=== PATIENT | male | born 1945 | race Caucasian/White ===

== ENCOUNTER 2018-06-11 07:09 | Emergency (ER) | payer OTHER ==
--- OUTSIDE RECORDS SUMMARY | 2018-06-11 07:14 | XMS REPORT | Clinical Summary ---
:1945 Author Organization [facility] Address [address] [place] [address] Care Team Providers Name Role Phone Dayna Mcneal MD Primary Care Provider Allergies Active Allergy Reactions Severity Noted Date Comments No Known Drug Allergies 04/29/2016 Medications Medication Sig Dispensed Refills Start Date End Date Status calcitriol Take 0.25 mcg 0 Active (ROCALTROL) 0.25 by mouth MCG capsule daily. pantoprazole Take 40 mg by 0 Active (PROTONIX) 40 MG EC mouth daily. tablet States not taking anymore nitroglycerin Place 0.4 mg 0 Active (NITROSTAT) 0.4 MG under the SL tablet tongue every 5 (five) minutes as needed for chest pain. cholecalciferol, Take 1,000 0 Active vitamin D3, Units by mouth (VITAMIN D3) 1,000 daily. unit tablet carvedilol (COREG) Take 1 tablet 180 tablet 3 05/04/2017 Active 6.25 MG tablet (6.25 mg total) by mouth 2 (two) times a day with meals. atorvastatin Take 1 tablet 90 tablet 3 12/22/2017 Active (LIPITOR) 80 MG (80 mg total) tablet by mouth nightly. isosorbide Take 1 tablet 90 tablet 3 01/18/2018 Active mononitrate (IMDUR) (30 mg total) 30 MG 24 hr tablet by mouth daily. furosemide (LASIX) TAKE 1 180 tablet 0 03/12/2018 Active 40 mg TABLET(40 MG) tabletIndications: BY MOUTH TWICE Edema, unspecified DAILY type ELIQUIS 5 mg (74 0 01/31/2018 Active tabs) tablets,dose pack HYDRALAZINE HCL, Take 100 mg by 0 01/31/2018 Active BULK, MISC mouth daily. amLODIPine TAKE 1 90 tablet 0 04/12/2018 Active (NORVASC) 10 mg TABLET(10 MG) tablet BY MOUTH DAILY traMADol (ULTRAM) Take 1 tablet 10 tablet 0 06/07/2018 Active 50 mg tablet (50 mg total) 8 by mouth every 8 (eight) hours as needed for moderate pain for up to 5 days. atorvastatin Take 80 mg by 0 Discontinued (LIPITOR) 80 MG mouth nightly. 8 tablet aspirin (ECOTRIN) Take 81 mg by 0 Discontinued 81 MG enteric mouth daily. 8 coated tablet amLODIPine Take 1 tablet 90 tablet 3 11/16/2016 Discontinued (NORVASC) 10 mg (10 mg total) 8 tablet by mouth daily. furosemide (LASIX) Take 1 tablet 180 tablet 3 01/03/2017 Discontinued 40 mg (40 mg total) 8 tabletIndications: by mouth 2 Edema, unspecified (two) times a type day. FLUZONE HIGH-DOSE ADM 0.5ML IM 0 03/23/2017 Discontinued 2016-18, PF, 180 UTD 8 mcg/0.5 mL syringe vaccine PREVNAR 13, PF, 0.5 ADM 0.5ML IM 0 03/23/2017 Discontinued mL vaccine UTD 8 amLODIPine TAKE 1 90 tablet 0 11/22/2017 Discontinued (NORVASC) 10 mg TABLET(10 MG) 8 tablet BY MOUTH DAILY clopidogrel Take 1 tablet 30 tablet 0 12/20/2017 Discontinued (PLAVIX) 75 mg (75 mg total) 8 tablet by mouth daily for 30 days. hydrALAZINE Take 1 tablet 90 tablet 0 12/19/2017 Discontinued (APRESOLINE) 100 MG (100 mg total) 8 tablet by mouth 3 (three) times a day for 30 days. isosorbide Take 1 tablet 90 tablet 0 12/19/2017 Discontinued dinitrate (ISORDIL) (40 mg total) 8 40 MG tablet by mouth 3 (three) times a day for 30 days. apixaban (ELIQUIS) Take 1 tablet 60 tablet 0 12/19/2017 Discontinued 5 mg tablet (5 mg total) 8 by mouth 2 (two) times a day for 30 days. nicotine (NICODERM Place 1 patch 30 patch 0 12/20/2017 Discontinued CQ) 14 mg/24 hr on the skin 8 daily for 30 days. clopidogrel Take 1 tablet 30 tablet 0 12/20/2017 Discontinued (PLAVIX) 75 mg (75 mg total) 8 tablet by mouth daily for 30 days. isosorbide Take 1 tablet 90 tablet 3 12/22/2017 Discontinued mononitrate (IMDUR) (30 mg total) 8 30 MG 24 hr tablet by mouth every morning. isosorbide Take 30 mg by 0 Discontinued mononitrate (IMDUR) mouth daily. 8 30 MG 24 hr tablet apixaban (ELIQUIS) Take 1 tablet 180 tablet 0 01/18/2018 Discontinued 5 mg tablet (5 mg total) 8 by mouth 2 (two) times a day for 30 days. clopidogrel Take 1 tablet 90 tablet 3 01/18/2018 Discontinued (PLAVIX) 75 mg (75 mg total) 8 tablet by mouth daily for 30 days. hydrALAZINE Take 1 tablet 90 tablet 0 01/18/2018 Discontinued (APRESOLINE) 100 MG (100 mg total) 8 tablet by mouth 3 (three) times a day for 30 days. clopidogrel TAKE 1 TABLET 30 tablet 0 01/23/2018 Discontinued (PLAVIX) 75 mg BY MOUTH EVERY 8 tablet DAY hydrALAZINE Take 1 tablet 270 tablet 3 01/31/2018 (APRESOLINE) 100 MG (100 mg total) 8 tablet by mouth 3 (three) times a day for 30 days. apixaban (ELIQUIS) Take 1 tablet 180 tablet 3 01/31/2018 5 mg tablet (5 mg total) 8 by mouth 2 (two) times a day for 30 days. clopidogrel TAKE 1 TABLET 30 tablet 0 03/12/2018 Discontinued (PLAVIX) 75 mg BY MOUTH EVERY 8 tablet DAY Active Problems Problem Noted Date H/O cardiac arrest 12/05/2017 Stented coronary artery 05/02/2017 Chronic obstructive pulmonary disease 04/29/2016 Pure hypercholesterolemia 04/29/2016 Overview: On statin and tolerating it; no muscle aches. Peripheral blood vessel disorder 04/29/2016 Ischemic cardiomyopathy 01/23/2016 Overview: S/p PCI - Dr. Avina Acute on chronic systolic CHF (congestive heart failure) 01/23/2016 Overview: LV size is upper limits of normal. EF=31%. Wall motion abnormalities present. LA volume is moderately enlarged. LV filling pressure is elevated, mean PCWP is 15-20mmHg. 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; hoping that kidney can recover to come off Essential hypertension 01/23/2016 Overview: Hydralazine 100 mg TID; isosorbide 40 mg Daily; amlodipine 10 mg; coreg 6.25 mg BID; Male erectile disorder 09/25/2014 Encounters Date Type Specialty Care Team Description 06/07/2018 Anesthesia Event General Surgery [facility], Millie, [employer] 06/07/2018 Surgery General Surgery Kaye, LEFT BRACHIOCEPHALIC Nithin Salazar MD AV GRAFT INSERTION 06/07/2018 Hospital Encounter General Surgery Nithin Restrepo MD 05/31/2018 Pre-Admit Testing Pre-Admission Kaye Preop testing ( Primary Appointment Testing Nithin Salazar MD Dx) 05/31/2018 Office Visit General Surgery Kaye, ESRD on hemodialysis Nithin Salazar MD ([facility]) (Primary Dx) 05/15/2018 Refill Cardiology Lourdes Avina Refill MD Marie 04/12/2018 Refill Cardiology Lourdes Avina MD 04/03/2018 Office Visit Cardiology Lourdes Avina Ischemic cardiomyopathy ( Primary Dx); MD Marie Stented coronary artery 03/06/2018 Refill Cardiology Lourdes Avina MD 01/31/2018 Orders Only Cardiology Marco Antonio Lozoya MA 01/23/2018 Refill Cardiology Lourdes Avina MD 01/18/2018 Refill Cardiology Richard Swartz MA 01/02/2018 Office Visit Cardiology Lourdes Avina Ischemic cardiomyopathy ( Primary Dx); MD Marie Stented coronary artery 12/29/2017 Office Visit Internal Medicine Dayna Mcneal Chronic bronchitis , unspecified chronic bronchitis type (Primary Dx); MD Evelio Acute on chronic systolic CHF (congestive heart failure); ESRD (end stage renal disease) on dialysis; Essential hypertension; Hematuria, unspecified type; H/O cardiac arrest; Pure hypercholesterolemia; Ischemic cardiomyopathy; CAD in [place] artery 12/22/2017 Refill Cardiology Maxime, Med Refill Laura, MA 12/22/2017 Refill Cardiology Maxime, Med Refill Laura, MA 12/22/2017 Orders Only Cardiology Laura Swartz MA 12/15/2017 Surgery Procedural Lourdes Avina Cv pci [10265 (CPT)] Cardiology MD Marie 12/07/2017 Surgery Procedural Lourdes Avina Cv selective coronary Cardiology MD Marie angiography [42159 (CPT)] 12/05/2017 - Hospital Encounter Lourdes Hardy Cardiac arrest ( Primary Dx); 12/19/2017 MD Marie Acute on chronic respiratory failure with hypoxia and hypercapnia; Pleural effusion, bilateral; Ischemic cardiomyopathy; Acute on chronic systolic CHF (congestive heart failure) 11/22/2017 Refill Cardiology Lourdes Avina Med Refcecil Salazar MD 10/31/2017 Office Visit Cardiology Lourdes Avina SOB (shortness of breath) ( Primary Dx); MD Marie CAD in [place] artery; Systolic congestive heart failure, unspecified congestive heart failure chronicity after 06/10/2017 Family History Medical History Relation Name Comments Heart disease Mother Relation Name Status Comments Father Mother Social History Tobacco Use Types Packs/Day Years Used Date Former Smoker Cigarettes 2 50 Quit: 2017 Smokeless Tobacco: Never Used Comments: patient smoked for 50 years Alcohol Use Drinks/Week oz/Week Comments No Sex Assigned at Date Recorded Not on file Job Start Date Occupation Industry Not on file Not on file Not on file Travel History Travel Start Travel End No recent travel history available. Last Filed Vital Signs Vital Sign Reading Time Taken Blood Pressure 165/73 06/07/2018 3:45 PM MEDICAL RESEARCHER Pulse 63 06/07/2018 3:45 PM MEDICAL RESEARCHER Temperature 36.4 C (97.5 F) 06/07/2018 2:45 PM MEDICAL RESEARCHER Respiratory Rate 18 06/07/2018 3:45 PM MEDICAL RESEARCHER Oxygen Saturation 93% 06/07/2018 3:45 PM MEDICAL RESEARCHER Inhaled Oxygen Concentration - - Weight 99.8 kg (220 lb) 06/07/2018 9:00 AM MEDICAL RESEARCHER Height 180.3 cm (5' 11") 06/07/2018 9:00 AM MEDICAL RESEARCHER Body Mass Index 30.68 06/07/2018 9:00 AM MEDICAL RESEARCHER Plan of Treatment Date Type Specialty Care Team Description 06/21/2018 Office Visit General Surgery Nithin Restrepo MD [address] [facility] [address] [place], [place] [id number] 10/02/2018 Office Visit Cardiology Lourdes Avina MD [address] [facility] [address] [place], [place] [phone] Health Maintenance Due Date Last Done Comments COLON CANCER SCREENING 1996 SHINGLES VACCINES (1 of 2) 1996 PNEUMOCOCCAL POLYSACCHARIDE VACCINE AGE 65 AND OVER 2011 PNEUMOCOCCAL-13 2011 INFLUENZA VACCINE 01/17/2018 Implants Implanted Type Area Monotype Operator Device Shelf Model / Identifier Expiration Serial / Date Lot Stent Coronary Syst Synergy (Mr) 3.00mm X 28mm - [id number] Coronary N/A: BSC 07/25/2018 [id number] / Implanted: 12/15/2017 (Quantity not on file) Stents N/A INTERVENTIONAL / CARDIOLOGY [id number] Set Cathztn Hmodial Lngtrm Accs 15fr 28cm Edge Simplicity - [id number] Surgical N/A: ARROW 08/16/2020 [id number] / Implanted: 12/12/2017 (Quantity not on file) Implants; N/A [employer] / Expanders; [id number] Extenders; Surgical Wires Graft Vasclr Pandora-Yeison Stdwl 40cm 6mm - [id number] Vascular N/A: W L GORE 08/24/2022 [id number] / Implanted: 06/07/2018 (Quantity not on file) Graft N/A [id number] / [id number] Penile Procedures Procedure Name Priority Date/Time Associated Diagnosis Comments NV AN ELECTIVE Routine 06/07/2018 11:16 AM ENDOTRACHEAL AIRWAY MEDICAL RESEARCHER Procedure Note - Torey Bell MD - 06/07/2018 11:16 AM MEDICAL RESEARCHER ANESTHESIA INTUBATION Performed by: Torey Bell MD Authorized by: Torey Bell MD Location: OR Urgency: Elective Preoxygenated with 100% O2: Yes C-spine Precautions Maintained Throughout: Yes Mask Ventilation: Easy mask Final Airway Type: Endotracheal airway Final Endotracheal Airway: ETT Technique Used: Direct laryngoscopy Blade Type: Aggarwal Laryngoscope Blade/Videolaryngoscope Blade Size: 2 ETT Size (mm): 8.0 Measured from: Lips ETT to Lips (cm): 24 Placement Verified by: CO2 detection, direct visualization and equal breath sounds Laryngoscopic view: Grade I - full view of glottis Rapid Sequence Induction (RSI): No Modified RSI: No Number of Attempts at Approach: 1 GLUCOSE LEVEL, SYRINGE STAT 06/07/2018 9:42 Results for this AM MEDICAL RESEARCHER procedure are in the results section. POTASSIUM, SYRINGE STAT 06/07/2018 9:42 Results for this AM MEDICAL RESEARCHER procedure are in the results section. HEMOGLOBIN, SYRINGE STAT 06/07/2018 9:42 Results for this AM MEDICAL RESEARCHER procedure are in the results section. ECG PRE/POST OP Routine 05/31/2018 5:43 Preop testing Results for this PM MEDICAL RESEARCHER procedure are in the results section. ESTIMATED GFR Routine 05/31/2018 5:30 Results for this PM MEDICAL RESEARCHER procedure are in the results section. COMPREHENSIVE METABOLIC Routine 05/31/2018 5:30 Preop testing Results for this PANEL PM MEDICAL RESEARCHER procedure are in the results section. HC COMPLETE BLD COUNT Routine 05/31/2018 5:30 Preop testing Results for this W/AUTO DIFF PM MEDICAL RESEARCHER procedure are in the results section. ECG 12-LEAD STAT 12/19/2017 12:13 Results for this PM CDT procedure are in the results section. ZZESTIMATED GFR Routine 12/19/2017 4:00 Results for this AM CDT procedure are in the results section. BASIC METABOLIC PANEL Routine 12/19/2017 4:00 Results for this AM CDT procedure are in the results section. ECG 12-LEAD STAT 12/18/2017 5:14 Results for this PM CDT procedure are in the results section. ZZESTIMATED GFR Routine 12/18/2017 4:00 Results for this AM CDT procedure are in the results section. BASIC METABOLIC PANEL Routine 12/18/2017 4:00 Results for this AM CDT procedure are in the results section. HEMODIALYSIS Routine 12/17/2017 1:43 PM CDT PROTHROMBIN TIME WITH Routine 12/16/2017 7:38 Results for this INR AM CDT procedure are in the results section. HC COMPLETE BLD COUNT Routine 12/16/2017 7:38 Results for this W/AUTO DIFF AM CDT procedure are in the results section. ZZESTIMATED GFR Routine 12/16/2017 4:00 Results for this AM CDT procedure are in the results section. MAGNESIUM LEVEL Routine 12/16/2017 4:00 Results for this AM CDT procedure are in the results section. IONIZED CALCIUM Routine 12/16/2017 4:00 Results for this AM CDT procedure are in the results section. BASIC METABOLIC PANEL Routine 12/16/2017 4:00 Results for this AM CDT procedure are in the results section. XR CHEST 1 VW PORTABLE Routine 12/15/2017 7:57 Results for this PM CDT procedure are in the results section. ECG PRE/POST OP Routine 12/15/2017 3:05 Results for this PM CDT procedure are in the results section. CONSULT CARDIAC REHAB Routine 12/15/2017 2:30 PHASE 1 PM CDT CV PCI PERCUTANEOUS Routine 12/15/2017 2:05 Results for this CARDIAC ANGIOPLASTY PM CDT procedure are in the results section. POC ACT Routine 12/15/2017 1:31 Results for this PM CDT procedure are in the results section. ACTIVATED CLOTTING TIME Routine 12/15/2017 12:38 Results for this PM CDT procedure are in the results section. ANTI XA, UNFRACTIONATED Routine 12/15/2017 5:30 Results for this AM CDT procedure are in the results section. PROTHROMBIN TIME WITH Routine 12/15/2017 5:30 Results for this INR AM CDT procedure are in the results section. MANUAL DIFFERENTIAL Routine 12/15/2017 4:00 Results for this AM CDT procedure are in the results section. ZZESTIMATED GFR Routine 12/15/2017 4:00 Results for this AM CDT procedure are in the results section. MAGNESIUM LEVEL Routine 12/15/2017 4:00 Results for this AM CDT procedure are in the results section. IONIZED CALCIUM Routine 12/15/2017 4:00 Results for this AM CDT procedure are in the results section. CBC WITH PLATELET AND Routine 12/15/2017 4:00 Results for this DIFFERENTIAL AM CDT procedure are in the results section. BASIC METABOLIC PANEL Routine 12/15/2017 4:00 Results for this AM CDT procedure are in the results section. HEPATITIS B CORE Routine 12/14/2017 3:09 Results for this ANTIBODY TOTAL PM CDT procedure are in the results section. HEPATITIS B SURFACE Routine 12/14/2017 3:09 Results for this ANTIBODY PM CDT procedure are in the results section. HEMODIALYSIS Routine 12/14/2017 2:32 PM CDT ANTI XA, UNFRACTIONATED STAT 12/14/2017 8:40 Results for this AM CDT procedure are in the results section. ECG 12-LEAD Routine 12/14/2017 8:15 Results for this AM CDT procedure are in the results section. MANUAL DIFFERENTIAL Routine 12/14/2017 5:00 Results for this AM CDT procedure are in the results section. ZZESTIMATED GFR Routine 12/14/2017 5:00 Results for this AM CDT procedure are in the results section. ANTI XA, UNFRACTIONATED Routine 12/14/2017 5:00 Results for this AM CDT procedure are in the results section. TYPE AND SCREEN Routine 12/14/2017 5:00 Results for this AM CDT procedure are in the results section. PROTHROMBIN TIME WITH Routine 12/14/2017 5:00 Results for this INR AM CDT procedure are in the results section. MAGNESIUM LEVEL Routine 12/14/2017 5:00 Results for this AM CDT procedure are in the results section. IONIZED CALCIUM Routine 12/14/2017 5:00 Results for this AM CDT procedure are in the results section. CBC WITH PLATELET AND Routine 12/14/2017 5:00 Results for this DIFFERENTIAL AM CDT procedure are in the results section. BASIC METABOLIC PANEL Routine 12/14/2017 5:00 Results for this AM CDT procedure are in the results section. PROTHROMBIN TIME WITH Timed 12/13/2017 1:50 Results for this INR PM CDT procedure are in the results section. ANTI XA, UNFRACTIONATED Timed 12/13/2017 1:50 Results for this PM CDT procedure are in the results section. ZZESTIMATED GFR Routine 12/13/2017 7:30 Results for this AM CDT procedure are in the results section. BASIC METABOLIC PANEL Routine 12/13/2017 7:30 Results for this AM CDT procedure are in the results section. HC COMPLETE BLD COUNT Routine 12/13/2017 7:30 Results for this W/AUTO DIFF AM CDT procedure are in the results section. PROTHROMBIN TIME WITH Routine 12/13/2017 7:30 Results for this INR AM CDT procedure are in the results section. PARTIAL THROMBOPLASTIN Routine 12/13/2017 7:30 Results for this TIME (PTT) AM CDT procedure are in the results section. HEMODIALYSIS Routine 12/13/2017 7:00 AM CDT ANTI XA, UNFRACTIONATED Routine 12/13/2017 4:40 Results for this AM CDT procedure are in the results section. POC GLUCOSE Routine 12/12/2017 9:40 Results for this PM CDT procedure are in the results section. XR CHEST 1 VW PORTABLE Routine 12/12/2017 8:19 Results for this PM CDT procedure are in the results section. HEPATITIS B SURFACE Routine 12/12/2017 8:07 Results for this ANTIGEN PM CDT procedure are in the results section. HEPATITIS B SURFACE AG Routine 12/12/2017 3:36 Results for this CONFIRMATION PM CDT procedure are in the results section. HEPATITIS B SURFACE Routine 12/12/2017 3:36 Results for this ANTIGEN PM CDT procedure are in the results section. HEMODIALYSIS Routine 12/12/2017 12:05 PM CDT IR TUNNELED DIALYSIS Routine 12/12/2017 8:27 Results for this CATHETER PLACEMENT AM CDT procedure are in the results section. ANTI XA, UNFRACTIONATED Timed 12/12/2017 7:03 Results for this AM CDT procedure are in the results section. ZZESTIMATED GFR Routine 12/12/2017 12:36 Results for this AM CDT procedure are in the results section. BASIC METABOLIC PANEL Routine 12/12/2017 12:36 Results for this AM CDT procedure are in the results section. ANTI XA, UNFRACTIONATED Timed 12/12/2017 12:30 Results for this AM CDT procedure are in the results section. CBC HEMOGRAM Routine 12/12/2017 12:30 Results for this AM CDT procedure are in the results section. ANTI XA, UNFRACTIONATED Routine 12/11/2017 4:30 Results for this PM CDT procedure are in the results section. ECG 12-LEAD Routine 12/11/2017 10:47 Results for this AM CDT procedure are in the results section. ZZESTIMATED GFR Routine 12/11/2017 5:19 Results for this AM CDT procedure are in the results section. CBC HEMOGRAM Routine 12/11/2017 5:19 Results for this AM CDT procedure are in the results section. BASIC METABOLIC PANEL Routine 12/11/2017 5:19 Results for this AM CDT procedure are in the results section. URINALYSIS, AUTOMATED STAT 12/10/2017 5:51 Results for this WITH MICROSCOPY PM CDT procedure are in the results section. MANUAL DIFFERENTIAL Routine 12/10/2017 3:00 Results for this PM CDT procedure are in the results section. CBC WITH PLATELET AND Routine 12/10/2017 3:00 Results for this DIFFERENTIAL PM CDT procedure are in the results section. ANTI XA, UNFRACTIONATED Routine 12/10/2017 12:20 Results for this PM CDT procedure are in the results section. ANTI XA, UNFRACTIONATED Routine 12/10/2017 8:30 Results for this AM CDT procedure are in the results section. ZZESTIMATED GFR Routine 12/10/2017 12:01 Results for this AM CDT procedure are in the results section. CBC HEMOGRAM Routine 12/10/2017 12:01 Results for this AM CDT procedure are in the results section. BASIC METABOLIC PANEL Routine 12/10/2017 12:01 Results for this AM CDT procedure are in the results section. ANTI XA, UNFRACTIONATED Routine 12/10/2017 12:01 Results for this AM CDT procedure are in the results section. ANTI XA, UNFRACTIONATED Routine 12/09/2017 5:24 Results for this PM CDT procedure are in the results section. HC COMPLETE BLD COUNT Routine 12/09/2017 11:47 Results for this W/AUTO DIFF AM CDT procedure are in the results section. ZZESTIMATED GFR STAT 12/09/2017 11:42 Results for this AM CDT procedure are in the results section. BASIC METABOLIC PANEL STAT 12/09/2017 11:42 Results for this AM CDT procedure are in the results section. ANTI XA, UNFRACTIONATED Timed 12/09/2017 6:33 Results for this AM CDT procedure are in the results section. ANTI XA, UNFRACTIONATED Routine 12/08/2017 9:19 Results for this PM CDT procedure are in the results section. ANTI XA, UNFRACTIONATED Timed 12/08/2017 1:49 Results for this PM CDT procedure are in the results section. ECG 12-LEAD Routine 12/08/2017 10:26 Results for this AM CDT procedure are in the results section. PROTHROMBIN TIME WITH STAT 12/08/2017 4:30 Results for this INR AM CDT procedure are in the results section. PARTIAL THROMBOPLASTIN STAT 12/08/2017 4:30 Results for this TIME (PTT) AM CDT procedure are in the results section. ANTI XA, UNFRACTIONATED STAT 12/08/2017 4:30 Results for this AM CDT procedure are in the results section. HC COMPLETE BLD COUNT Routine 12/08/2017 4:30 Results for this W/AUTO DIFF AM CDT procedure are in the results section. ZZESTIMATED GFR Routine 12/08/2017 4:00 Results for this AM CDT procedure are in the results section. MAGNESIUM LEVEL Routine 12/08/2017 4:00 Results for this AM CDT procedure are in the results section. PHOSPHORUS LEVEL Routine 12/08/2017 4:00 Results for this AM CDT procedure are in the results section. IONIZED CALCIUM Routine 12/08/2017 4:00 Results for this AM CDT procedure are in the results section. BASIC METABOLIC PANEL Routine 12/08/2017 4:00 Results for this AM CDT procedure are in the results section. ECG 12-LEAD Routine 12/08/2017 12:07 SOB (shortness of Results for this AM CDT breath) procedure are in the results section. CV SELECTIVE CORONARY Routine 12/07/2017 5:56 Results for this ANGIOGRAPHY PM CDT procedure are in the results section. POC GLUCOSE Routine 12/07/2017 11:07 Results for this AM CDT procedure are in the results section. XR CHEST 1 VW PORTABLE STAT 12/07/2017 6:51 Results for this AM CDT procedure are in the results section. POC GLUCOSE Routine 12/07/2017 6:23 Results for this AM CDT procedure are in the results section. HC COMPLETE BLD COUNT Routine 12/07/2017 5:15 Results for this W/AUTO DIFF AM CDT procedure are in the results section. ZZESTIMATED GFR Routine 12/07/2017 4:00 Results for this AM CDT procedure are in the results section. IONIZED CALCIUM Routine 12/07/2017 4:00 Results for this AM CDT procedure are in the results section. PHOSPHORUS LEVEL Routine 12/07/2017 4:00 Results for this AM CDT procedure are in the results section. MAGNESIUM LEVEL Routine 12/07/2017 4:00 Results for this AM CDT procedure are in the results section. COMPREHENSIVE METABOLIC Routine 12/07/2017 4:00 Results for this PANEL AM CDT procedure are in the results section. CT ABDOMEN PELVIS WO Routine 12/06/2017 10:00 Results for this CONTRAST PM CDT procedure are in the results section. POC GLUCOSE Routine 12/06/2017 9:10 Results for this PM CDT procedure are in the results section. POC GLUCOSE Routine 12/06/2017 5:22 Results for this PM CDT procedure are in the results section. ZZESTIMATED GFR Routine 12/06/2017 3:02 Results for this PM CDT procedure are in the results section. PHOSPHORUS LEVEL Routine 12/06/2017 3:02 Results for this PM CDT procedure are in the results section. MAGNESIUM LEVEL Routine 12/06/2017 3:02 Results for this PM CDT procedure are in the results section. IONIZED CALCIUM Routine 12/06/2017 3:02 Results for this PM CDT procedure are in the results section. BASIC METABOLIC PANEL Routine 12/06/2017 3:02 Results for this PM CDT procedure are in the results section. AMYLASE LEVEL Routine 12/06/2017 3:02 Results for this PM CDT procedure are in the results section. LIPASE LEVEL Routine 12/06/2017 3:02 Results for this PM CDT procedure are in the results section. POC GLUCOSE Routine 12/06/2017 1:29 Results for this PM CDT procedure are in the results section. TROPONIN Timed 12/06/2017 10:28 Results for this AM CDT procedure are in the results section. ECG 12-LEAD Routine 12/06/2017 10:16 Results for this AM CDT procedure are in the results section. XR CHEST 1 VW PORTABLE Routine 12/06/2017 10:07 Results for this AM CDT procedure are in the results section. POC GLUCOSE Routine 12/06/2017 8:55 Results for this AM CDT procedure are in the results section. BLOOD CULTURE, AEROBIC Routine 12/06/2017 7:56 Results for this & ANAEROBIC AM CDT procedure are in the results section. ARTERIAL BLOOD GAS STAT 12/06/2017 7:52 Results for this AM CDT procedure are in the results section. XR ABDOMEN 1 VW STAT 12/06/2017 7:20 Results for this PORTABLE AM CDT procedure are in the results section. XR CHEST 1 VW PORTABLE STAT 12/06/2017 7:08 Results for this AM CDT procedure are in the results section. XR ABDOMEN 1 VW STAT 12/06/2017 7:08 Results for this PORTABLE AM CDT procedure are in the results section. MYCOPLASMA PNEUMONIAE Routine 12/06/2017 6:00 Results for this BY PCR AM CDT procedure are in the results section. MISCELLANEOUS REFERRAL Routine 12/06/2017 5:50 Results for this TEST AM CDT procedure are in the results section. POC GLUCOSE Routine 12/06/2017 5:43 Results for this AM CDT procedure are in the results section. NV THORACENTESIS Routine 12/06/2017 5:39 Acute on chronic Results for this NEEDLE/CATH PLEURA AM CDT respiratory failure procedure are in W/IMAGING with hypoxia and the results hypercapnia section. Pleural effusion, bilateral Cardiac arrest BODY FLUID CONSULT Routine 12/06/2017 5:25 Results for this AM CDT procedure are in the results section. PH, MISC FLUID Routine 12/06/2017 5:25 Results for this AM CDT procedure are in the results section. RHEUMATOID FACTOR, STAT 12/06/2017 5:25 Results for this FLUID AM CDT procedure are in the results section. TRIGLYCERIDES, MISC Routine 12/06/2017 5:25 Results for this FLUID AM CDT procedure are in the results section. CREATININE LEVEL, MISC Routine 12/06/2017 5:25 Results for this FLUID AM CDT procedure are in the results section. ALBUMIN, MISC FLUID Routine 12/06/2017 5:25 Results for this AM CDT procedure are in the results section. AMYLASE LEVEL, MISC Routine 12/06/2017 5:25 Results for this FLUID AM CDT procedure are in the results section. CELL COUNT AND Routine 12/06/2017 5:25 Results for this DIFFERENTIAL, BODY AM CDT procedure are in FLUID the results section. LDH, MISC FLUID Routine 12/06/2017 5:25 Results for this AM CDT procedure are in the results section. GLUCOSE LEVEL, MISC Routine 12/06/2017 5:25 Results for this FLUID AM CDT procedure are in the results section. PROTEIN, MISC FLUID Routine 12/06/2017 5:25 Results for this AM CDT procedure are in the results section. HEMATOCRIT, MISC FLUID STAT 12/06/2017 5:25 Results for this AM CDT procedure are in the results section. GRAM STAIN Routine 12/06/2017 5:25 Results for this AM CDT procedure are in the results section. FUNGUS SMEAR Routine 12/06/2017 5:25 Results for this AM CDT procedure are in the results section. FUNGUS CULTURE Routine 12/06/2017 5:25 Results for this AM CDT procedure are in the results section. ANAEROBIC CULTURE Routine 12/06/2017 5:25 Results for this AM CDT procedure are in the results section. AEROBIC CULTURE Routine 12/06/2017 5:25 Results for this AM CDT procedure are in the results section. AFB CULTURE Routine 12/06/2017 5:25 Results for this AM CDT procedure are in the results section. AFB STAIN Routine 12/06/2017 5:25 Results for this AM CDT procedure are in the results section. ZZESTIMATED GFR Routine 12/06/2017 2:27 Results for this AM CDT procedure are in the results section. IONIZED CALCIUM Routine 12/06/2017 2:27 Results for this AM CDT procedure are in the results section. MAGNESIUM LEVEL Routine 12/06/2017 2:27 Results for this AM CDT procedure are in the results section. PHOSPHORUS LEVEL Routine 12/06/2017 2:27 Results for this AM CDT procedure are in the results section. FERRITIN LEVEL Routine 12/06/2017 2:27 Results for this AM CDT procedure are in the results section. TOTAL IRON BINDING Routine 12/06/2017 2:27 Results for this CAPACITY AM CDT procedure are in the results section. THYROID STIMULATING Routine 12/06/2017 2:27 Results for this HORMONE AM CDT procedure are in the results section. COMPREHENSIVE METABOLIC Routine 12/06/2017 2:27 Results for this PANEL AM CDT procedure are in the results section. HEPARIN PF4 ANTIBODY Routine 12/06/2017 2:00 Results for this (IGG) AM CDT procedure are in the results section. D-DIMER Routine 12/06/2017 2:00 Results for this AM CDT procedure are in the results section. FIBRINOGEN Routine 12/06/2017 2:00 Results for this AM CDT procedure are in the results section. PARTIAL THROMBOPLASTIN Routine 12/06/2017 2:00 Results for this TIME (PTT) AM CDT procedure are in the results section. TRIGLYCERIDES Routine 12/06/2017 2:00 Results for this AM CDT procedure are in the results section. FOLATE LEVEL Routine 12/06/2017 2:00 Results for this AM CDT procedure are in the results section. ALBUMIN LEVEL Routine 12/06/2017 2:00 Results for this AM CDT procedure are in the results section. PROTHROMBIN TIME WITH Routine 12/06/2017 2:00 Results for this INR AM CDT procedure are in the results section. PROTEIN, TOTAL Routine 12/06/2017 2:00 Results for this AM CDT procedure are in the results section. VITAMIN B12 LEVEL Routine 12/06/2017 2:00 Results for this AM CDT procedure are in the results section. HAPTOGLOBIN Routine 12/06/2017 2:00 Results for this AM CDT procedure are in the results section. LDH Routine 12/06/2017 2:00 Results for this AM CDT procedure are in the results section. POC GLUCOSE Routine 12/06/2017 12:53 Results for this AM CDT procedure are in the results section. HC COMPLETE BLD COUNT STAT 12/06/2017 12:30 Results for this W/AUTO DIFF AM CDT procedure are in the results section. VITAMIN B12 LEVEL Routine 12/06/2017 12:30 Results for this AM CDT procedure are in the results section. FOLATE LEVEL Routine 12/06/2017 12:30 Results for this AM CDT procedure are in the results section. TROPONIN Timed 12/06/2017 12:30 Results for this AM CDT procedure are in the results section. LDH STAT 12/05/2017 11:18 Results for this PM CDT procedure are in the results section. HAPTOGLOBIN STAT 12/05/2017 11:18 Results for this PM CDT procedure are in the results section. TRIGLYCERIDES STAT 12/05/2017 11:18 Results for this PM CDT procedure are in the results section. PROTEIN, TOTAL STAT 12/05/2017 11:18 Results for this PM CDT procedure are in the results section. LACTIC ACID LEVEL STAT 12/05/2017 11:18 Results for this PM CDT procedure are in the results section. CT CHEST WO CONTRAST STAT 12/05/2017 11:06 Results for this PM CDT procedure are in the results section. POC GLUCOSE Routine 12/05/2017 8:59 Results for this PM CDT procedure are in the results section. US DUPLEX VENOUS LOWER STAT 12/05/2017 6:13 Results for this EXTREMITY BILATERAL PM CDT procedure are in the results section. URINALYSIS SCREEN AND Routine 12/05/2017 5:50 Results for this MICROSCOPY, WITH REFLEX PM CDT procedure are in TO CULTURE the results section. GRAM STAIN Routine 12/05/2017 5:50 Results for this PM CDT procedure are in the results section. URINE CULTURE Routine 12/05/2017 5:50 Results for this PM CDT procedure are in the results section. XR CHEST 1 VW PORTABLE STAT 12/05/2017 5:36 Results for this PM CDT procedure are in the results section. SODIUM LEVEL, URINE, Routine 12/05/2017 5:26 Results for this RANDOM PM CDT procedure are in the results section. UREA NITROGEN, URINE, Routine 12/05/2017 5:26 Results for this RANDOM PM CDT procedure are in the results section. CREATININE LEVEL, Routine 12/05/2017 5:26 Results for this URINE, RANDOM PM CDT procedure are in the results section. ARTERIAL BLOOD GAS Timed 12/05/2017 5:25 Results for this PM CDT procedure are in the results section. TROPONIN Timed 12/05/2017 5:25 Results for this PM CDT procedure are in the results section. ECHOCARDIOGRAM 2D STAT 12/05/2017 4:42 Results for this COMPLETE W MMODE PM CDT procedure are in SPECTRAL COLOR DOPPLER the results (89744) section. POC GLUCOSE Routine 12/05/2017 4:39 Results for this PM CDT procedure are in the results section. BLOOD CULTURE, AEROBIC Routine 12/05/2017 4:20 Results for this & ANAEROBIC PM CDT procedure are in the results section. B NATRIURETIC PEPTIDE STAT 12/05/2017 3:50 Results for this PM CDT procedure are in the results section. TYPE AND SCREEN STAT 12/05/2017 3:50 Results for this PM CDT procedure are in the results section. IONIZED CALCIUM, STAT 12/05/2017 3:50 Results for this ARTERIAL PM CDT procedure are in the results section. ZZESTIMATED GFR STAT 12/05/2017 3:50 Results for this PM CDT procedure are in the results section. ARTERIAL BLOOD GAS STAT 12/05/2017 3:50 Results for this PM CDT procedure are in the results section. PARTIAL THROMBOPLASTIN STAT 12/05/2017 3:50 Results for this TIME (PTT) PM CDT procedure are in the results section. PROTHROMBIN TIME WITH STAT 12/05/2017 3:50 Results for this INR PM CDT procedure are in the results section. PHOSPHORUS LEVEL STAT 12/05/2017 3:50 Results for this PM CDT procedure are in the results section. MAGNESIUM LEVEL STAT 12/05/2017 3:50 Results for this PM CDT procedure are in the results section. CREATINE KINASE, TOTAL STAT 12/05/2017 3:50 Results for this (CPK) PM CDT procedure are in the results section. TROPONIN STAT 12/05/2017 3:50 Results for this PM CDT procedure are in the results section. LACTIC ACID LEVEL STAT 12/05/2017 3:50 Results for this PM CDT procedure are in the results section. HEPATIC FUNCTION PANEL STAT 12/05/2017 3:50 Results for this PM CDT procedure are in the results section. BASIC METABOLIC PANEL STAT 12/05/2017 3:50 Results for this PM CDT procedure are in the results section. HC COMPLETE BLD COUNT STAT 12/05/2017 3:50 Results for this W/AUTO DIFF PM CDT procedure are in the results section. ECG 12-LEAD STAT 12/05/2017 3:29 Results for this PM CDT procedure are in the results section. POC GLUCOSE Routine 12/05/2017 3:29 Results for this PM CDT procedure are in the results section. CYTOLOGY Routine 12/05/2017 12:20 Results for this (NON-GYNECOLOGICAL) PM CDT procedure are in REQUEST the results section. ECHOCARDIOGRAM 2D Routine 11/07/2017 11:59 CAD in [place] Results for this COMPLETE W MMODE AM CDT artery procedure are in SPECTRAL COLOR DOPPLER SOB (shortness of the results (98261) breath) section. Systolic congestive heart failure, unspecified congestive heart failure chronicity after 06/10/2017 Results Potassium, syringe (06/07/2018 9:42 AM MEDICAL RESEARCHER) Potassium, syringe 4.4 3.5 - 5.0 mEq/L [facility] Specimen Blood Performing Organization Address City/State/Zipcode Phone Number [facility] DEPARTMENT OF PATHOLOGY AND [address] [place] [address] GENOMIC MEDIC[address] [address] Hemoglobin, syringe (06/07/2018 9:42 AM MEDICAL RESEARCHER) Hemoglobin, syringe 11.9 (L) 14.0 - 18.0 g/dL [facility] Specimen Blood Performing Organization Address City/[facility]/Zipcode Phone Number [facility] DEPARTMENT OF PATHOLOGY AND [address] [place] [phone] [address] Glucose level, syringe (06/07/2018 9:42 AM MEDICAL RESEARCHER) Glucose, syringe 97 65 - 99 mg/dL [facility] Specimen Blood Performing Organization Address City/[facility]/Zipcode Phone Number [facility] DEPARTMENT OF PATHOLOGY AND [address] [place] [phone] [address] ECG Pre/Post Op (05/31/2018 5:43 PM MEDICAL RESEARCHER)Only the most recent of2 resultswithin the time period is included. Ventricular rate 59 [facility]USE Atrial rate 344 [facility] MUSE QRSD interval 108 [facility] QT interval 464 [facility] QTC interval 459 [facility] MUSE QRS axis 1 48 [facility] T wave axis 156 [facility] MUSE EKG impression Atrial flutter with variable AV block with premature ventricular or aberrantly conducted complexes-Incomplete left bundle branch block-ST & T wave abnormality, consider inferolateral ischemia-Abnorm [facility] MUSE al ECG- Narrative Performed At Performing Organization Address [facility] Phone Number [facility] MUSE [address] [place] [phone] Estimated GFR (05/31/2018 5:30 PM MEDICAL RESEARCHER) Estimated GFR 9 (A) mL/min/1.73 m2 [facility] Comment: HOSPITAL CatergoryUnitsInterpretation G1 >=90 Normal or high G2 60-89Mildly decreased [id number] to moderately decreased [id number] to severely decreased G4 15-29Severely decreased G5 <15Kidney failure The eGFR was calculated using the Chronic Kidney Disease Epidemiology Collaboration (CKD-EPI) equation. Interpretation is based on recommendations of the National Kidney Foundation-Kidney Disease Outcomes Quality Initiative (NKF-KDOQI) published in 2014. Specimen Plasma specimen Performing Organization Address City/State/Zipcode Phone Number [facility] DEPARTMENT OF PATHOLOGY AND [address] [place] [phone] [place] [address] CBC with platelet and differential (05/31/2018 5:30 PM MEDICAL RESEARCHER)Only the most recent of11 resultswithin the time period is included. WBC 7.89 4.50 - 11.00 k/uL [facility] RBC 3.71 (L) 4.40 - 6.00 m/uL [facility] HGB 11.8 (L) 14.0 - 18.0 g/dL [facility] HCT 37.3 (L) 41.0 - 51.0 % [facility] MCV 100.5 (H) 82.0 - 100.0 fL [facility] MCH 31.8 27.0 - 34.0 pg [facility] MCHC 31.6 31.0 - 37.0 g/dL [facility] RDW - SD 52.6 37.0 - 55.0 fL [facility] MPV 12.3 8.8 - 13.2 fL [facility] Platelet count 127 (L) 150 - 400 k/uL [facility] Nucleated RBC 0.00 /100 WBC [facility] Neutrophils 63.1 39.0 - 69.0 % [facility] Lymphocytes 18.8 (L) 25.0 - 45.0 % [facility] Monocytes 11.7 (H) 0.0 - 10.0 % [facility] Eosinophils 4.9 0.0 - 5.0 % [facility] Basophils 0.6 0.0 - 1.0 % [facility] Immature granulocytes 0.9Comment: "Immature 0.0 - 1.0 % [facility]" [facility] (promyelocytes, myelocytes, metamyelocytes) Specimen Blood Performing Organization Address City/State/Zipcode Phone Number [facility] DEPARTMENT OF PATHOLOGY AND [address] [place] [address] GENOMIC MEDICINE [address] [address] Comprehensive metabolic panel (05/31/2018 5:30 PM MEDICAL RESEARCHER)Only the most recent of3 resultswithin the time period is included. Sodium 141 135 - 148 mEq/L [facility] Potassium 3.9 3.5 - 5.0 mEq/L [facility] Chloride 96 (L) 98 - 112 mEq/L [facility] CO2 25 24 - 31 mEq/L [facility] Anion gap 20@ANIO (H) 7 - 15 mEq/L [facility] BUN 38 (H) 8 - 23 mg/dL [facility] Creatinine 5.88 (H) 0.70 - 1.20 mg/dL [facility] Glucose 89 65 - 99 mg/dL [facility] Calcium 9.8 8.8 - 10.2 mg/dL [facility] Protein 7.2 6.3 - 8.3 g/dL [facility] Comment: HOSPITAL [place] 4.6-7.0 g/dL 1 week 4.4-7.6 g/dL 7 months-1year5.1-7.3 g/dL 1-2 years5.6-7.5 g/dL >3 years6.0-8.0 g/dL 18-150 6.3-8.3 g/dL Albumin 3.6 3.5 - 5.0 g/dL [facility] A/G ratio 1.0 0.7 - 3.8 [facility] Alkaline phosphatase 80 40 - 129 U/L [facility] AST 13 10 - 50 U/L [facility] ALT 13 5 - 50 U/L [facility] Total bilirubin 0.3 0.0 - 1.2 mg/dL [facility] Specimen Plasma specimen Performing Organization Address City/State/Zipcode Phone Number [facility] DEPARTMENT OF PATHOLOGY AND [address] [place] [address] GENOMIC MEDICINE [address] [address] ECG 12 lead (12/19/2017 12:13 PM CDT)Only the most recent of8 resultswithin the time period is included. Ventricular rate 57 [facility] Atrial rate 312 [facility] QRSD interval 112 [facility] QT interval 468 [facility] QTC interval 455 [facility] QRS axis 1 5 [facility] T wave axis 160 [facility] EKG impression Atrial fibrillation with slow ventricular response-Inferior infarct (cited on or before 02-MAY-2017)-ST & T wave abnormality, consider lateral ischemia or digitalis effect-Abnormal ECG-In automated comparison with ECG of 18-DEC-2017 17:14,-T wave [facility] MUSE inversion more evident in Lateral leads- Performing Organization Address City/State/Zipcode Phone Number [facility] MUSE [address] [place] [address] Estimated GFR (12/19/2017 4:00 AM CDT)Only the most recent of15 resultswithin the time period is included. GFR Non Af Amer 13 (A) mL/min/1.73 m2 [facility] DEPARTMENT OF PATHOLOGY AND GENOMIC MEDICINE GFR Af Amer 16 (A) mL/min/1.73 m2 [facility] DEPARTMENT OF Comment: PATHOLOGY AND GENOMIC Chronic kidney disease: <60 mL/min/1.73m2 MEDICINE Kidney failure: <15 mL/min/1.73m2 The estimated GFR is calculated from the IDMS-traceable Modification of Diet in Renal Disease Equation. The accuracy of the calculation is poor when the creatinine is normal. Calculated values >90 mL/min/1.73m2 are not reported. This equation has not been validated in children (<18 years), women, the elderly (>70 years), or ethnic groups other than Caucasians and Americans. Specimen Plasma specimen Performing Organization Address [facility] Phone Number [facility] PATHOLOGY AND [address] [place] [address] GENOMIC MEDICINE Basic metabolic panel (12/19/2017 4:00 AM CDT)Only the most recent of13 resultswithin the time period is included. Sodium 137 135 - 148 mEq/L [facility] DEPARTMENT OF PATHOLOGY AND GENOMIC MEDICINE Potassium 4.0 3.5 - 5.0 mEq/L [facility] DEPARTMENT OF PATHOLOGY AND GENOMIC MEDICINE Chloride 97 (L) 98 - 112 mEq/L [facility] DEPARTMENT OF PATHOLOGY AND GENOMIC MEDICINE CO2 25 24 - 31 mEq/L [facility] DEPARTMENT OF PATHOLOGY AND GENOMIC MEDICINE Anion gap 15@ANIO 7 - 15 mEq/L [facility] DEPARTMENT OF PATHOLOGY AND GENOMIC MEDICINE BUN 24 (H) 8 - 23 mg/dL [facility] DEPARTMENT OF PATHOLOGY AND GENOMIC MEDICINE Creatinine 4.4 (H) 0.7 - 1.2 mg/dL [facility] DEPARTMENT OF PATHOLOGY AND GENOMIC MEDICINE Glucose 100 (H) 65 - 99 mg/dL [facility] DEPARTMENT OF PATHOLOGY AND GENOMIC MEDICINE Calcium 8.7 (L) 8.8 - 10.2 mg/dL [facility] DEPARTMENT OF PATHOLOGY AND GENOMIC MEDICINE Specimen Plasma specimen Performing Organization Address City/[facility] Phone Number [facility] DEPARTMENT OF PATHOLOGY AND [address] [place] [address] Prothrombin time with INR (12/16/2017 7:38 AM CDT)Only the most recent of8 resultswithin the time period is included. Prothrombin time 14.5 12.0 - 15.0 sec [facility] DEPARTMENT OF PATHOLOGY AND GENOMIC MEDICINE INR 1.1 [facility] DEPARTMENT OF Comment: PATHOLOGY AND GENOMIC The International Normalized Ratio (INR) is a therapeutic MEDICINE monitoring tool for patients who are stable on oral anticoagulant therapy. An INR of 2.0-3.0 is suggested for deep vein thrombosis/pulmonary embolism. Specimen Blood Performing Organization Address [facility] Phone Number [facility] DEPARTMENT OF PATHOLOGY AND [address] [place] [address] Magnesium level (12/16/2017 4:00 AM CDT)Only the most recent of8 resultswithin the time period is included. Magnesium 2.1 1.6 - 2.4 mg/dL [facility] DEPARTMENT OF PATHOLOGY AND GENOMIC MEDICINE Specimen Plasma specimen Performing Organization Address City/[facility] Hospitalcovt Phone Number [facility] DEPARTMENT OF PATHOLOGY AND [address] [place] [address] Ionized calcium (12/16/2017 4:00 AM CDT)Only the most recent of7 resultswithin the time period is included. pH 7.45 [facility] DEPARTMENT OF PATHOLOGY AND GENOMIC MEDICINE Ionized calcium 1.09 (L) 1.11 - 1.32 mmol/L [facility] DEPARTMENT OF PATHOLOGY AND GENOMIC MEDICINE Specimen Plasma specimen Performing Organization Address [facility] Hospital[facility]t Phone Number [facility] DEPARTMENT OF PATHOLOGY AND [address] [place] [address] XR Chest 1 Vw Portable (12/15/2017 7:57 PM CDT)Only the most recent of6 resultswithin the time period is included. Narrative Performed At PROCEDURE:XR [facility]ST [facility]ICAL [facility]:RALES, l COMPARISON:December 12, 2017-December 06, 2017 TECHNIQUE: A single view of the chest was taken in the AP projection. The images were digitally labeled by the technologist. FINDINGS: Are shown improvement in the polar vascular congestion is noted with residual interstitial shadowing in the parahilar regions. The cardiac silhouette is enlarged as before. A dual port Tessio catheter is noted with the tips projected over the region of the right atrium. IMPRESSION: Partial improvement in the congestive cardiac failure from previous. [facility]-[id number] Procedure Note Interface, Radiology Results Incoming - 12/15/2017 8:03 PM CDT PROCEDURE: XR CHEST 1 VW PORTABLE CLINICAL HISTORY: RALES, l COMPARISON: December 12, 2017-December 06, 2017 TECHNIQUE: A single view of the chest was taken in the AP projection. The images were digitally labeled by the technologist. FINDINGS: Are shown improvement in the polar vascular congestion is noted with residual interstitial shadowing in the parahilar regions. The cardiac silhouette is enlarged as before. A dual port Tessio catheter is noted with the tips projected over the region of the right atrium. IMPRESSION: Partial improvement in the congestive cardiac failure from previous. 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 (12/15/2017 2:05 PM CDT) Narrative Performed At Successful 3.0x28 mm [employer]nergy FRANCESCO to mid LAD [facility] Performing Organization Address [facility] Phone Number [facility] [address] [place] [address] POC ACT (12/15/2017 1:31 PM CDT) Activated clotting time, POC 349 seconds Specimen Blood Activated clotting time (12/15/2017 12:38 PM CDT) Activated clotting time 349 (H) 96 - 152 sec [facility] DEPARTMENT OF Comment: PATHOLOGY AND GENOMIC Meter ID: [id number] MEDICINE Business Continuity Strategy Director: Jimmy Sweet Performing Organization Address City/[facility]/Tailoredcode Phone Number [facility] DEPARTMENT OF PATHOLOGY AND [address] [place] [phone] GENOMIC MEDICINE Anti Xa, unfractionated (12/15/2017 5:30 AM CDT)Only the most recent of16 resultswithin the time period is included. Anti Xa, unfractionated 0.68Comment: 0.30 - 0.70 U/mL [facility] DEPARTMENT OF Therapeutic Range: PATHOLOGY AND GENOMIC 0.30 - 0.70 U/mL MEDICINE Specimen Blood Performing Organization Address City/State/Zipcode Phone Number [facility] DEPARTMENT OF PATHOLOGY AND [address] [place] [address] GENOMIC MEDICINE Manual differential (12/15/2017 4:00 AM CDT)Only the most recent of3 resultswithin the time period is included. Manual differential PERFORMED [facility] DEPARTMENT OF PATHOLOGY AND GENOMIC MEDICINE Neutrophils 74.0 (H) 39.0 - 69.0 % [facility] DEPARTMENT OF PATHOLOGY AND GENOMIC MEDICINE Lymphocytes 13.0 (L) 25.0 - 45.0 % [facility] DEPARTMENT OF PATHOLOGY AND GENOMIC MEDICINE Monocytes 9.0 0.0 - 10.0 % [facility] DEPARTMENT OF PATHOLOGY AND GENOMIC MEDICINE Eosinophils 1.0 0.0 - 5.0 % [facility] DEPARTMENT OF PATHOLOGY AND GENOMIC MEDICINE Basophils 1.0 0.0 - 1.0 % [facility] DEPARTMENT OF PATHOLOGY AND GENOMIC MEDICINE Metamyelocytes 1 % [facility] DEPARTMENT OF PATHOLOGY AND GENOMIC MEDICINE Myelocytes 1 % [facility] DEPARTMENT OF PATHOLOGY AND GENOMIC MEDICINE Promyelocytes 0 % [facility] DEPARTMENT OF PATHOLOGY AND GENOMIC MEDICINE Platelet slide review Decreased (A) [facility] DEPARTMENT OF PATHOLOGY AND GENOMIC MEDICINE Toxic granulation Slight [facility] DEPARTMENT OF PATHOLOGY AND GENOMIC MEDICINE Anisocytosis Moderate [facility] DEPARTMENT OF PATHOLOGY AND GENOMIC MEDICINE Polychromasia Moderate [facility] DEPARTMENT OF PATHOLOGY AND GENOMIC MEDICINE Ovalocytes Moderate [facility] DEPARTMENT OF PATHOLOGY AND GENOMIC MEDICINE Enlarged platelets Moderate (A) [facility] DEPARTMENT OF PATHOLOGY AND GENOMIC MEDICINE Performing Organization Address City/[facility] Phone Number [facility] DEPARTMENT OF PATHOLOGY AND [address] [place] [address] Hepatitis B core antibody total (12/14/2017 3:09 PM CDT) Hepatitis B core total Ab Non-reactive Non-reactive [facility] DEPARTMENT OF PATHOLOGY AND GENOMIC MEDICINE Specimen Blood Performing Organization Address City/State/Zipcode Phone Number [facility] DEPARTMENT OF PATHOLOGY AND [address] [place] [address] Hepatitis B surface antibody (12/14/2017 3:09 PM CDT) Hepatitis B surface Ab Non-reactive Non-reactive [facility] DEPARTMENT OF PATHOLOGY AND GENOMIC MEDICINE Specimen Blood Performing Organization Address City/[facility]/Zipcode Phone Number [facility] DEPARTMENT OF PATHOLOGY AND [address] [place] [address] GENOMIC MEDICINE Type and screen (12/14/2017 5:00 AM CDT)Only the most recent of2 resultswithin the time period is included. ABO grouping A [facility] DEPARTMENT OF PATHOLOGY AND GENOMIC MEDICINE Rh type POS [facility] DEPARTMENT OF PATHOLOGY AND [facility] Antibody screen (gel) NEG [facility] DEPARTMENT OF PATHOLOGY AND [facility] Specimen Blood Performing Organization Address City/[facility] Phone Number [facility] DEPARTMENT OF PATHOLOGY AND [address] [place] [address] Partial thromboplastin time, activated (12/13/2017 7:30 AM CDT)Only the most recent of4 resultswithin the time period is included. PTT SEE COMMENT 23.0 - 36.0 sec [facility] DEPARTMENT OF PATHOLOGY Comment: [facility] PTT therapeutic range for unfractionated heparin is 61.0-112.0 seconds which corresponds to Anti-Xa 0.3-0.7 U/ml. Footnote--------- Unable to perform testing, specimen is QUESTIONABLE INTEGRITY.Recollect requested for PT INR AND PTT (tests).FRANCO ATKINSON/Maggie (name/location) notified by PR1 (tech ID) at12/13/201708:49(date/time). Credit issued. Specimen Blood Performing Organization Address [facility] Hospital[facility] Phone Number [facility] DEPARTMENT OF PATHOLOGY AND [address] [place] [address] POC glucose (12/12/2017 9:40 PM CDT)Only the most recent of12 resultswithin the time period is included. POC glucose 115 (H) 65 - 99 mg/dL [facility] DEPARTMENT OF PATHOLOGY Comment: AND [employer] [facility] Notified RN Meter ID: [id number] Business Continuity Strategy Director: Arroyo Performing Organization Address City/[facility]/Zipcode Phone Number [facility] DEPARTMENT OF PATHOLOGY AND [address] [place] [address] Hepatitis B surface antigen (12/12/2017 8:07 PM CDT)Only the most recent of2 resultswithin the time period is included. Hepatitis B surface Ag Non-reactive Non-reactive [facility] DEPARTMENT OF PATHOLOGY AND GENOMIC MEDICINE Performing Organization Address City/[facility]/Zipcode Phone Number [facility] DEPARTMENT OF PATHOLOGY AND [address] [place] [address] Hepatitis B surface Ag confirmation (12/12/2017 3:36 PM CDT) Hepatitis B surface Ag SEE COMMENTComment: Non-reactive [facility] DEPARTMENT OF confirmation Footnote--------- PATHOLOGY AND GENOMIC MEDICINE Performing Organization Address City/State/Zipcode Phone Number [facility] DEPARTMENT OF PATHOLOGY AND [address] [place] [address] GENOMIC MEDICINE IR Tunneled Dialysis Catheter Placement (12/12/2017 8:27 AM CDT) Narrative Performed At Procedure: Placement of tunneled dialysis catheter [facility] Clinical History: End-stage renal disease Sedation: Versed and fentanyl were utilized for monitored conscious sedation during the procedure. The patient was transferred to the recovery room at the end of the procedure for further monitoring. Cunt-kx-uzik time 15 minutes Anesthesia: Local Radiation dose: Ka,r=5 mGy Technique: After discussing the risks and benefits of the procedure and moderate conscious sedation with the patient he agreed to the procedure. All elements of maximal sterile barrier technique were followed. A recorded image of the patent right internal jugular vein was obtained. After prepping and draping the right side of the neck and chest, local anesthesia was administered and the internal jugular vein accessed with a 21-gauge needle under real-time ultrasound guidance. A 0.018 guidewire was advanced to the right atrium under fluoroscopy. Local anesthesia was then administered from the infraclavicular region to the initial puncture site. The 23 cm Arrow Edge dialysis catheter was brought through the tunnel. A 4 Iranian catheter was placed over the initially placed guidewire and an Amplatz guidewire advanced into the inferior vena cava. After dilatation, the dialysis catheter was placed with its tips in the superior vena cava. The lumens aspirated and injected easily. They were flushed with heparin. The initial puncture site was sealed with Dermabond and the catheter exit site closed with 3-0 Ethilon suture. Complications: None Impression: Successful placement of a right internal jugular vein tunneled dialysis catheter Blood Loss: Less than 1 mL [facility]-[id number] Procedure Note Interface, Radiology Results Incoming - 12/12/2017 9:10 AM CDT Procedure: Placement of tunneled dialysis catheter Clinical History: End-stage renal disease Sedation: Versed and fentanyl were utilized for monitored conscious sedation during the procedure. The patient was transferred to the recovery room at the end of the procedure for further monitoring. Pcyv-ry-shif time 15 minutes Anesthesia: Local Radiation dose: Ka,r=5 mGy Technique: After discussing the risks and benefits of the procedure and moderate conscious sedation with the patient he agreed to the procedure. All elements of maximal sterile barrier technique were followed. A recorded image of the patent right internal jugular vein was obtained. After prepping and draping the right side of the neck and chest, local anesthesia was administered and the internal jugular vein accessed with a 21- gauge needle under real-time ultrasound guidance. A 0.018 guidewire was advanced to the right atrium under fluoroscopy. Local anesthesia was then administered from the infraclavicular region to the initial puncture site. The 23 cm Arrow Edge dialysis catheter was brought through the tunnel. A 4 Iranian catheter was placed over the initially placed guidewire and an Amplatz guidewire advanced into the inferior vena cava. After dilatation , the dialysis catheter was placed with its tips in the superior vena cava. The lumens aspirated and injected easily. They were flushed with heparin. The initial puncture site was sealed with Dermabond and the catheter exit site closed with 3-0 Ethilon suture. Complications: None Impression: Successful placement of a right internal jugular vein tunneled dialysis catheter Blood Loss: Less than 1 mL [facility]-[id number] Performing Organization Address City/State/Zipcode Phone Number [facility] [address] [place] [address] CBC hemogram (12/12/2017 12:30 AM CDT)Only the most recent of3 resultswithin the time period is included. WBC 6.88 4.50 - 11.00 k/uL [facility] DEPARTMENT OF PATHOLOGY AND GENOMIC MEDICINE RBC 3.17 (L) 4.40 - 6.00 m/uL [facility] DEPARTMENT OF PATHOLOGY AND GENOMIC MEDICINE HGB 10.0 (L) 14.0 - 18.0 g/dL [facility] DEPARTMENT OF PATHOLOGY AND GENOMIC MEDICINE HCT 31.0 (L) 41.0 - 51.0 % [facility] DEPARTMENT OF PATHOLOGY AND GENOMIC MEDICINE MCV 97.8 82.0 - 100.0 fL [facility] DEPARTMENT OF PATHOLOGY AND GENOMIC MEDICINE MCH 31.5 27.0 - 34.0 pg [facility] DEPARTMENT OF PATHOLOGY AND GENOMIC MEDICINE MCHC 32.3 31.0 - 37.0 g/dL [facility] DEPARTMENT OF PATHOLOGY AND GENOMIC MEDICINE RDW - SD 52.5 37.0 - 55.0 fL [facility] DEPARTMENT OF PATHOLOGY AND GENOMIC MEDICINE MPV 13.5 (H) 8.8 - 13.2 fL [facility] DEPARTMENT OF PATHOLOGY AND GENOMIC MEDICINE Platelet count 69 (L) 150 - 400 k/uL [facility] DEPARTMENT OF PATHOLOGY AND GENOMIC MEDICINE Nucleated RBC 0.00 /100 WBC [facility] DEPARTMENT OF PATHOLOGY AND GENOMIC MEDICINE Specimen Blood Performing Organization Address [facility] Phone Number [facility] PATHOLOGY AND [address] [place] [id number] [facility] Urinalysis, automated with microscopy (12/10/2017 5:51 PM CDT) Color, UA Yellow [facility] DEPARTMENT OF PATHOLOGY AND GENOMIC MEDICINE Appearance, UA Clear [facility] DEPARTMENT OF PATHOLOGY AND GENOMIC MEDICINE Specific gravity, UA 1.015 1.001 - 1.035 [facility] DEPARTMENT OF PATHOLOGY AND GENOMIC MEDICINE pH, UA 6.0 5.0 - 8.5 [facility] DEPARTMENT OF PATHOLOGY AND GENOMIC MEDICINE Protein, UA 3+ (A) Negative [facility] DEPARTMENT OF PATHOLOGY AND GENOMIC MEDICINE Glucose, UA 1+ (A) Negative [facility] DEPARTMENT OF PATHOLOGY AND GENOMIC MEDICINE Ketones, UA Negative Negative [facility] DEPARTMENT OF PATHOLOGY AND GENOMIC MEDICINE Bilirubin, UA Negative Negative [facility] DEPARTMENT OF PATHOLOGY AND GENOMIC MEDICINE Blood, UA Large (A) Negative [facility] DEPARTMENT OF PATHOLOGY AND GENOMIC MEDICINE Nitrite, UA Negative Negative [facility] DEPARTMENT OF PATHOLOGY AND GENOMIC MEDICINE Urobilinogen, UA <2.0 <2.0 [facility] DEPARTMENT OF PATHOLOGY AND GENOMIC MEDICINE Leukocyte esterase, UA Negative Negative [facility] DEPARTMENT OF PATHOLOGY AND GENOMIC MEDICINE WBC, UA 6 (H) 0 - 1 /HPF [facility] DEPARTMENT OF PATHOLOGY AND GENOMIC MEDICINE RBC, UA 122 (H) 0 - 5 /HPF [facility] DEPARTMENT OF PATHOLOGY AND GENOMIC MEDICINE Bacteria, UA Few None seen [facility] DEPARTMENT OF PATHOLOGY AND GENOMIC MEDICINE Amorphous crystals Few [facility] DEPARTMENT OF PATHOLOGY AND GENOMIC MEDICINE Hyaline casts, UA 4 /LPF [facility] DEPARTMENT OF PATHOLOGY AND GENOMIC MEDICINE Yeast, UA None seen [facility] DEPARTMENT OF PATHOLOGY AND GENOMIC MEDICINE Yeast with pseudohyphae, UA None seen [facility] DEPARTMENT OF PATHOLOGY AND GENOMIC MEDICINE Specimen Urine Performing Organization Address City/[facility] Phone Number [facility] DEPARTMENT OF PATHOLOGY AND [address] [place] [id number] [employer] [facility] Phosphorus level (12/08/2017 4:00 AM CDT)Only the most recent of5 resultswithin the time period is included. 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 Performing Organization Address [facility]/Zipcode Phone Number [facility] [address] [place] [address] CT Abdomen Pelvis Wo Contrast (12/06/2017 10:00 PM CDT) Narrative Performed At EXAMINATION:CT ABDOMEN PELVIS WO CONTRAST [facility] CLINICAL HISTORY:Abdominal pain TECHNIQUE: Multiple axial images of the abdomen and pelvis were obtained without intravenous administration of iodinated contrast. Sagittal and coronal computerized reformatted images were also obtained. The lack of intravenous contrast reduces the sensitivity of detecting solid organ disease.Automatic exposure control or iterative reconstruction techniques used to reduce dose. COMPARISON:06/15/2006 Impression: 1.Without IV contrast evaluation of solid organs of upper abdomen is limited. Loculated appearing small left effusion and tiny right effusion seen. Subpleural reticular and alveolar infiltrates are seen at lung bases. 2.Presumed cysts noted within the kidneys, not well characterized without contrast. Bilateral common iliac artery metal stents are seen. Cholelithiasis noted. Bowel gas pattern is nonobstructive. No diverticulitis or appendicitis seen. No fluid collections or free air. Prostatic enlargement and penile implant noted. [facility]-[id number] Procedure Note Hm Interface, Radiology Results Incoming - 12/06/2017 10:37 PM CDT EXAMINATION: CT ABDOMEN PELVIS WO CONTRAST CLINICAL HISTORY: Abdominal pain TECHNIQUE: Multiple axial images of the abdomen and pelvis were obtained without intravenous administration of iodinated contrast. Sagittal and coronal computerized reformatted images were also obtained. The lack of intravenous contrast reduces the sensitivity of detecting solid organ disease.Automatic exposure control or iterative reconstruction techniques used to reduce dose. COMPARISON: 06/15/2006 Impression: 1. Without IV contrast evaluation of solid organs of upper abdomen is limited. Loculated appearing small left effusion and tiny right effusion seen. Subpleural reticular and alveolar infiltrates are seen at lung bases. 2. Presumed cysts noted within the kidneys, not well characterized without contrast. Bilateral common iliac artery metal stents are seen. Cholelithiasis noted. Bowel gas pattern is nonobstructive. No diverticulitis or appendicitis seen. No fluid collections or free air. Prostatic enlargement and penile implant noted. [facility]-[id number] Performing Organization Address [facility]/Zipcode Phone Number [address] [address] Lipase level (12/06/2017 3:02 PM CDT) Lipase 35 13 - 60 U/L [facility] DEPARTMENT OF PATHOLOGY AND GENOMIC MEDICINE Specimen Plasma specimen Performing Organization Address [facility] Phone Number [facility] DEPARTMENT OF PATHOLOGY AND [address] [place] [address] Amylase level (12/06/2017 3:02 PM CDT) Amylase 65 28 - 100 U/L [facility] DEPARTMENT OF PATHOLOGY AND [facility] Specimen Plasma specimen Performing Organization Address [facility] Phone Number [facility] DEPARTMENT OF PATHOLOGY AND [address] [place] [address] Troponin (12/06/2017 10:28 AM CDT)Only the most recent of4 resultswithin the time period is included. Troponin 0.33 (H) 0.00 - 0.30 ng/mL [facility] DEPARTMENT OF PATHOLOGY Comment: AND GENOMIC MEDICINE 0.30 - 1.49 ng/mlMay indicate increased risk of acute coronary syndrome. >=1.5 ng/mlConsistent with acute myocardial infarction. The diagnostic value of a single normal or non-diagnostic result is questionable.Serial samples at 2-6 hour intervals are required to rule out acute myocardial injury. Specimen Plasma specimen Performing Organization Address [facility] Phone Number [facility] DEPARTMENT OF PATHOLOGY AND [address] [place] [address] Blood culture, aerobic & anaerobic (12/06/2017 7:56 AM CDT)Only the most recent of2 resultswithin the time period is included. Blood culture isolate No growth after 5 days of incubation. [facility] DEPARTMENT OF Comment: PATHOLOGY AND GENOMIC Specimen Information MEDICINE Specimen Source: Blood Specimen Site: Unspecified Specimen Blood Performing Organization Address City/State/Zipcode Phone Number [facility] DEPARTMENT OF PATHOLOGY AND [address] [place] [address] [facility] Arterial blood gas (12/06/2017 7:52 AM CDT)Only the most recent of3 resultswithin the time period is included. pH, arterial 7.35 7.35 - 7.45 [facility] DEPARTMENT OF PATHOLOGY AND GENOMIC MEDICINE pCO2, arterial 41 35 - 45 mmHg [facility] DEPARTMENT OF PATHOLOGY AND GENOMIC MEDICINE pO2, arterial 90 80 - 90 mmHg [facility] DEPARTMENT OF PATHOLOGY AND GENOMIC MEDICINE Bicarbonate, arterial 22.0 21.0 - 28.0 mmol/L [facility] DEPARTMENT OF PATHOLOGY AND GENOMIC MEDICINE Base excess, arterial -3 (L) -2 - 2 mEq/L [facility] DEPARTMENT OF PATHOLOGY AND GENOMIC MEDICINE O2 saturation, arterial 98 95 - 100 % [facility] DEPARTMENT OF PATHOLOGY AND GENOMIC MEDICINE Specimen Blood Performing Organization Address City/[facility] Hospitalcovt Phone Number [facility] DEPARTMENT OF PATHOLOGY AND [address] [place] [address] [facility] XR Abdomen 1 Vw Portable (12/06/2017 7:20 AM CDT)Only the most recent of2 resultswithin the time period is included. Narrative Performed At EXAMINATION: XR ABDOMEN 1 VW PORTABLE [facility] INDICATION: DHT placemenmt COMPARISON: None IMPRESSION: No Dobbhoff tube is seen on this abdominal radiograph and may be within the chest. There is a partially imaged nasogastric tube with tip in the stomach. Examination is otherwise unchanged since prior. [id number] Procedure Note Hm Interface, Radiology Results Incoming - 12/06/2017 7:28 AM CDT EXAMINATION: XR ABDOMEN 1 VW PORTABLE INDICATION: DHT placemenmt COMPARISON: None IMPRESSION: No Dobbhoff tube is seen on this abdominal radiograph and may be within the chest. There is a partially imaged nasogastric tube with tip in the stomach. Examination is otherwise unchanged since prior. [id number] Performing Organization Address City/[facility]/Zipcode Phone Number [facility] [address] [place] [address] Mycoplasma pneumoniae by PCR (12/06/2017 6:00 AM CDT) Mycoplasma pneumoniae PCR Not-Detected Not-Detected [facility] DEPARTMENT OF PATHOLOGY AND GENOMIC MEDICINE Mycoplasma pneumoniae PCR See link below for [facility] DEPARTMENT OF PDF Lab PATHOLOGY AND GENOMIC ReportComment: Case MEDICINE Number: [id number] Performing Organization Address City/State/Zipcode Phone Number [facility] DEPARTMENT OF PATHOLOGY AND [address] [place] [address] GENOMIC MEDICINE Miscellaneous referral test (12/06/2017 5:50 AM CDT) [facility] test name PNEUMOCYSTIS PCR PLEURAL [facility] test result SEE NOTE [facility] Comment: PNEUMOCYSTIS PCR SAMPLE: PLEURAL FLUID RESULTS: NEGATIVE REFERNECE: NA Test performed by: [facility] [employer] [address] [place], [place] Performing Organization Address City/State/Zipcode Phone Number [facility] [address] [place] [address] Thoracentesis (12/06/2017 5:39 AM CDT) Narrative Performed At Vic Tsang MD 12/06/20175:57 AM Thoracentesis Date/Time: 12/06/2017 5:39 AM Performed by: VIC TSANG Authorized by: VIC TSANG Consent: Consent obtained:Verbal Consent given by:Patient (and daughter, who is available at the bedside) Risks discussed:Bleeding, incomplete drainage, infection, nerve damage, pain and pneumothorax Alternatives discussed:Delayed treatment [place] protocol: Procedure explained and questions answered to patient or proxy's satisfaction: yes Relevant documents present and verified: yes Test results available and properly labeled: yes Imaging studies available: yes Required blood products, implants, devices and special equipment available: yes Site/side marked: yes Immediately prior to procedure a time out was called: yes Patient identity confirmed:Arm band and hospital-assigned identification number Sedation: Sedation type:Narcotic Narcotic(s) used::Fentanyl Anesthesia (see MAR for exact dosages): Anesthesia method:Local infiltration Local anesthetic:Lidocaine 1% w/o epi Procedure details: Preparation: Patient was prepped and draped in usual sterile fashion Patient position:Supine Location:R midaxillary line Intercostal space:6th Puncture method:Bcaajjd-ahs-jrhiru catheter Ultrasound guidance: yes Indwelling catheter placed: yes Needle gauge:18 Catheter size:8 Fr Number of attempts:1 Fluid removed amount:1250 Fluid sent for:Aerobic, anaerobic, fungal, AFB, cytology, triglyceride, glucose, amylase, pH, LDH, cholesterol and cell count and differential Drainage characteristics:Cloudy (yellow) Post-procedure details: Chest x-ray performed: yes Chest x-ray findings:Pleural effusion improved (final report - pending ) Complications:None (No immediate complication - No evidence of pneumothorax on post-procedure bedside right hemithorax ultrasound) Patient tolerance of procedure:Tolerated well, no immediate complications Fungus smear (12/06/2017 5:25 AM CDT) Fungus smear No fungi observed. [facility] DEPARTMENT OF PATHOLOGY AND Comment: GENOMIC MEDICINE Specimen Information Specimen Source: Pleural fluid Specimen Site: Not specified Specimen Pleural fluid - Not specified Performing Organization Address City/[facility] Phone Number [facility] DEPARTMENT OF PATHOLOGY AND [address] [place] [address] GENOMIC MEDICINE Body fluid consult (12/06/2017 5:25 AM CDT) Body fluid consult Done [facility] DEPARTMENT OF PATHOLOGY AND Comment: GENOMIC MEDICINE Negative for malignancy. Reviewed by Luc Hernández M.D. Specimen Fluid Performing Organization Address City/[facility] Phone Number [facility] DEPARTMENT OF PATHOLOGY AND [address] [place] [phone] GENOMIC MEDICINE AFB culture (12/06/2017 5:25 AM CDT) AFB culture isolate No growth after 6 weeks of incubation. [facility] DEPARTMENT OF PATHOLOGY Comment: AND GENOMIC MEDICINE Specimen Information Specimen Source: Pleural fluid Specimen Site: Not specified Specimen Pleural fluid - Not specified Performing Organization Address [facility] Phone Number [facility] DEPARTMENT OF PATHOLOGY AND [address] [place] [address] [employer] MEDICINE Rheumatoid factor, fluid (12/06/2017 5:25 AM CDT) Rheumatoid factor fluid Pleural fluid [facility] source Rheumatoid factor, body <10 IU/mL [facility] fluid Comment: INTERPRETIVE INFORMATION: Rheumatoid Factor, Body Fluid For information on body fluid reference ranges and/or interpretive guidance visit [email or web address] Test developed and characteristics determined by [facility]. See Compliance Statement B: [facility]/CS Performed by [facility], [address] [place] [address] [email or web address], Bry Hoover MD - Lab. Director Specimen Serum Performing Organization Address City/State/Zipcode Phone Number [facility] [address] [place] [address] Aerobic culture (12/06/2017 5:25 AM CDT) Aerobic culture isolate No growth after 3 days. [facility] DEPARTMENT OF Comment: PATHOLOGY AND GENOMIC Specimen Information MEDICINE Specimen Source: Pleural fluid Specimen Site: Not specified Specimen Pleural fluid - Not specified Performing Organization Address City/State/[facility] Phone Number [facility] DEPARTMENT OF PATHOLOGY AND [address] [place] [phone] GENOMIC MEDICINE Gram stain (12/06/2017 5:25 AM CDT)Only the most recent of2 resultswithin the time period is included. Gram stain isolate Many WBC's [facility] DEPARTMENT OF PATHOLOGY No organisms seen AND GENOMIC MEDICINE Comment: Specimen Information Specimen Source: Pleural fluid Specimen Site: Not specified Specimen Pleural fluid - Not specified Performing Organization Address City/[facility] Phone Number [facility] DEPARTMENT OF PATHOLOGY AND [address] [place] [phone] GENOMIC MEDICINE AFB stain (12/06/2017 5:25 AM CDT) AFB stain No acid fast bacilli (AFB) seen. [facility] DEPARTMENT OF PATHOLOGY AND Comment: GENOMIC MEDICINE Specimen Information Specimen Source: Pleural fluid Specimen Site: Not specified Specimen Pleural fluid - Not specified Performing Organization Address City/[facility] Phone Number [facility] DEPARTMENT OF PATHOLOGY AND [address] [place] [address] GENOMIC MEDICINE Fungus culture (12/06/2017 5:25 AM CDT) Fungus culture isolate No growth after 4 weeks of incubation. [facility] DEPARTMENT OF Comment: PATHOLOGY AND GENOMIC Specimen Information MEDICINE Specimen Source: Pleural fluid Specimen Site: Not specified Specimen Pleural fluid - Not specified Performing Organization Address City/[facility]/Zipcode Phone Number [facility] DEPARTMENT OF PATHOLOGY AND [address] [place] [address] GENOMIC MEDICINE Anaerobic culture (12/06/2017 5:25 AM CDT) Anaerobic culture No anaerobic organisms isolated. [facility] DEPARTMENT OF isolate Comment: PATHOLOGY AND GENOMIC Specimen Information MEDICINE Specimen Source: Pleural fluid Specimen Site: Not specified Specimen Pleural fluid - Not specified Performing Organization Address City/State/[facility] Phone Number [facility] DEPARTMENT OF PATHOLOGY AND [address] [place] [phone] GENOMIC MEDICINE Cell count and differential, body fluid (12/06/2017 5:25 AM CDT) [facility] fluid type Pleural [facility] DEPARTMENT OF PATHOLOGY AND GENOMIC MEDICINE Color, fluid Yellow [facility] DEPARTMENT OF PATHOLOGY AND GENOMIC MEDICINE Appearance, fluid Slightly hazy [facility] DEPARTMENT OF PATHOLOGY AND GENOMIC MEDICINE RBC, fluid SEE COMMENTComment: 2+ /CMM [facility] DEPARTMENT OF (500 - 10,000 RBC/CMM) PATHOLOGY AND GENOMIC MEDICINE Nucleated cells, fluid 159 /CMM [facility] DEPARTMENT OF PATHOLOGY AND GENOMIC MEDICINE Fluid mononuclear cell See Diff [facility] DEPARTMENT OF PATHOLOGY AND GENOMIC MEDICINE Neutrophils, fluid 21 % [facility] DEPARTMENT OF PATHOLOGY AND GENOMIC MEDICINE Lymphocytes, fluid 34 % [facility] DEPARTMENT OF PATHOLOGY AND GENOMIC MEDICINE Eosinophils, fluid 1 % [facility] DEPARTMENT OF PATHOLOGY AND GENOMIC MEDICINE Mesothelial cells, fluid 2 % [facility] DEPARTMENT OF PATHOLOGY AND GENOMIC MEDICINE Macrophages, fluid 42 % [facility] DEPARTMENT OF PATHOLOGY AND GENOMIC MEDICINE Specimen Fluid Performing Organization Address City/[facility] Phone Number [facility] DEPARTMENT OF PATHOLOGY AND [address] [place] [phone] GENOMIC MEDICINE Hematocrit, [facility] fluid (12/06/2017 5:25 AM CDT) Fluid type Pleural [facility] DEPARTMENT OF PATHOLOGY AND GENOMIC MEDICINE Hematocrit, fluid <0.1 % [facility] DEPARTMENT OF PATHOLOGY AND GENOMIC MEDICINE Specimen Fluid Performing Organization Address City/[facility] Phone Number [facility] DEPARTMENT OF PATHOLOGY AND [address] [place] [phone] GENOMIC MEDICINE Triglycerides, misc fluid (12/06/2017 5:25 AM CDT) Fluid type Pleural [facility] DEPARTMENT OF PATHOLOGY AND GENOMIC MEDICINE Triglyceride, fluid 11 mg/dL [facility] DEPARTMENT OF Comment: PATHOLOGY AND GENOMIC Analysis performed on Alize 8000 analyzer. This is not an MEDICINE approved methodology for this specimen type;accuracy and clinical significance uncertain. Specimen Fluid Performing Organization Address City/[facility] Phone Number [facility] DEPARTMENT OF PATHOLOGY AND [address] [place] [phone] GENOMIC MEDICINE Protein, misc fluid (12/06/2017 5:25 AM CDT) Fluid type Pleural [facility] DEPARTMENT OF PATHOLOGY AND GENOMIC MEDICINE Protein, fluid 1.6 g/dL [facility] DEPARTMENT OF PATHOLOGY Comment: AND GENOMIC MEDICINE Analysis performed on Alize 8000 analyzer. This is not an approved methodology for this specimen type;accuracy and clinical significance uncertain. Specimen Fluid Performing Organization Address City/State/[facility] Phone Number [facility] DEPARTMENT OF PATHOLOGY AND [address] [place] [phone] GENOMIC MEDICINE LDH, misc fluid (12/06/2017 5:25 AM CDT) Fluid type Pleural [facility] DEPARTMENT OF PATHOLOGY AND GENOMIC MEDICINE LDH, fluid 74 U/L [facility] DEPARTMENT OF PATHOLOGY AND Comment: GENOMIC MEDICINE Analysis performed on Alize 8000 analyzer. This is not an approved methodology for this specimen type;accuracy and clinical significance uncertain. Specimen Fluid Performing Organization Address City/[facility] Phone Number [facility] DEPARTMENT OF PATHOLOGY AND [address] [place] [phone] GENOMIC MEDICINE Glucose level, misc fluid (12/06/2017 5:25 AM CDT) Fluid type Pleural [facility] DEPARTMENT OF PATHOLOGY AND GENOMIC MEDICINE Glucose, fluid 96 mg/dL [facility] DEPARTMENT OF PATHOLOGY Comment: AND GENOMIC MEDICINE Analysis performed on Alize 8000 analyzer. This is not an approved methodology for this specimen type;accuracy and clinical significance uncertain. Specimen Fluid Performing Organization Address City/[facility] Phone Number [facility] DEPARTMENT OF PATHOLOGY AND [address] [place] [phone] GENOMIC MEDICINE Amylase level, misc fluid (12/06/2017 5:25 AM CDT) Fluid type Pleural [facility] DEPARTMENT OF PATHOLOGY AND GENOMIC MEDICINE Amylase, fluid 30 U/L [facility] DEPARTMENT OF PATHOLOGY Comment: AND GENOMIC MEDICINE Analysis performed on Alize 8000 analyzer. This is not an approved methodology for this specimen type;accuracy and clinical significance uncertain. Specimen Fluid Performing Organization Address City/[facility] Phone Number [facility] DEPARTMENT OF PATHOLOGY AND [address] [place] [phone] GENOMIC MEDICINE Albumin, misc fluid (12/06/2017 5:25 AM CDT) Fluid type Pleural [facility] DEPARTMENT OF PATHOLOGY AND GENOMIC MEDICINE Albumin, fluid 1.0 g/dL [facility] DEPARTMENT OF PATHOLOGY Comment: AND GENOMIC MEDICINE Analysis performed on Alize 8000 analyzer. This is not an approved methodology for this specimen type;accuracy and clinical significance uncertain. Specimen Fluid Performing Organization Address City/[facility] Phone Number [facility] DEPARTMENT OF PATHOLOGY AND [address] [place] [phone] GENOMIC MEDICINE pH, misc fluid (12/06/2017 5:25 AM CDT) Fluid type Pleural [facility] DEPARTMENT OF PATHOLOGY AND GENOMIC MEDICINE pH, fluid 8.00Comment: Reference ranges are [facility] DEPARTMENT OF PATHOLOGY AND not established for Miscellanous GENOMIC MEDICINE specimens. Specimen Fluid Performing Organization Address City/[facility] Phone Number [facility] DEPARTMENT OF PATHOLOGY AND [address] [place] [phone] GENOMIC MEDICINE Creatinine level, misc fluid (12/06/2017 5:25 AM CDT) Fluid type Pleural [facility] DEPARTMENT OF PATHOLOGY AND GENOMIC MEDICINE Creatinine, fluid 4.6 mg/dL [facility] DEPARTMENT OF PATHOLOGY Comment: AND GENOMIC MEDICINE Analysis performed on Alize 8000 analyzer. This is not an approved methodology for this specimen type;accuracy and clinical significance uncertain. Specimen Fluid Performing Organization Address [facility] Phone Number [facility] DEPARTMENT OF PATHOLOGY AND [address] [place] [phone] GENOMIC MEDICINE Total iron binding capacity (12/06/2017 2:27 AM CDT) Iron level 31 (L) 59 - 158 ug/dL [facility] DEPARTMENT OF PATHOLOGY AND GENOMIC MEDICINE Iron binding capacity 215 200 - 400 ug/dL [facility] DEPARTMENT OF PATHOLOGY AND GENOMIC MEDICINE % Saturation 14.4 (L) 20.0 - 40.0 % [facility] DEPARTMENT OF PATHOLOGY AND GENOMIC MEDICINE Specimen Plasma specimen Performing Organization Address City/[facility] Phone Number [facility] DEPARTMENT OF PATHOLOGY AND [address] [place] [phone] GENOMIC MEDICINE Thyroid stimulating hormone (12/06/2017 2:27 AM CDT) TSH 1.69 0.27 - 4.20 uIU/mL [facility] DEPARTMENT OF PATHOLOGY AND GENOMIC MEDICINE Specimen Plasma specimen Performing Organization Address City/[facility]/Zipcode Phone Number [facility] DEPARTMENT OF PATHOLOGY AND [address] [place] [phone] GENOMIC MEDICINE Ferritin level (12/06/2017 2:27 AM CDT) Ferritin level 180 30 - 400 ng/mL [facility] DEPARTMENT OF PATHOLOGY AND GENOMIC MEDICINE Specimen Plasma specimen Performing Organization Address City/[facility]/Zipcode Phone Number [facility] DEPARTMENT OF PATHOLOGY AND [address] Heparin PF4 antibody (IgG) (12/06/2017 2:00 AM CDT) Heparin PF4 Ab OD reading 0.067 0.000 - 0.399 [facility] DEPARTMENT OF PATHOLOGY AND GENOMIC MEDICINE Heparin PF4 Ab, IgG Negative Negative [facility] DEPARTMENT OF PATHOLOGY AND GENOMIC MEDICINE Specimen Blood Performing Organization Address [facility] Phone Number [facility] DEPARTMENT OF PATHOLOGY AND [address] [place] [address] Fibrinogen (12/06/2017 2:00 AM CDT) Fibrinogen 536 (H) 200 - 450 mg/dL [facility] DEPARTMENT OF PATHOLOGY AND GENOMIC MEDICINE Specimen Blood Performing Organization Address [facility] Phone Number [facility] DEPARTMENT OF PATHOLOGY AND [address] [place] [address] D-dimer (12/06/2017 2:00 AM CDT) D-dimer 2.11 (H) 0.00 - 0.40 ug/mL FEU [facility] DEPARTMENT OF Comment: PATHOLOGY AND GENOMIC Units are ug/ml Fibrinogen Equivalent Unit. MEDICINE When combined with low clinical probability, D-dimer results of less than 0.5 ug/ml FEU have a good negativepredictive value in excluding PE or DVT. For D-dimer results greater than 0.5ug/ml FEU further testing is indicated if PE or DVT is suspectedclinically. Elevated D-dimer results have been reported in DVT, PE, and DIC cases and may indicate the presence of a clot. D-dimer results may be elevated due to old age, , inflammatory diseases, trauma, post-operative states, sepsis, and malignancies. Specimen Blood Performing Organization Address [facility] Phone Number [facility] DEPARTMENT OF PATHOLOGY AND [address] [place] [address] Triglycerides (12/06/2017 2:00 AM CDT)Only the most recent of2 resultswithin the time period is included. Triglycerides 138 <150 mg/dL [facility] DEPARTMENT OF PATHOLOGY AND GENOMIC MEDICINE Specimen Plasma specimen Performing Organization Address [facility] Phone Number [facility] DEPARTMENT OF PATHOLOGY AND [address] [place] [address] Protein, total (12/06/2017 2:00 AM CDT)Only the most recent of2 resultswithin the time period is included. Protein 5.8 (L) 6.3 - 8.3 g/dL [facility] DEPARTMENT OF PATHOLOGY AND Comment: GENOMIC MEDICINE 4.6-7.0 g/dL 1 week 4.4-7.6 g/dL 7 months-1year5.1-7.3 g/dL 1-2 years5.6-7.5 g/dL >3 years6.0-8.0 g/dL 18-150 6.3-8.3 g/dL Specimen Plasma specimen Performing Organization Address City/[facility] Phone Number [facility] DEPARTMENT OF PATHOLOGY AND [address] [place] [address] LDH (12/06/2017 2:00 AM CDT)Only the most recent of2 resultswithin the time period is included. LDH 257 (H) 87 - 225 U/L [facility] DEPARTMENT OF PATHOLOGY AND [facility] MEDICINE Specimen Plasma specimen Performing Organization Address [facility] Phone Number [facility] DEPARTMENT OF PATHOLOGY AND [address] [place] [address] Haptoglobin (12/06/2017 2:00 AM CDT)Only the most recent of2 resultswithin the time period is included. Haptoglobin 46 30 - 200 mg/dL [facility] DEPARTMENT OF PATHOLOGY AND [facility] Specimen Plasma specimen Performing Organization Address [facility] Phone Number [facility] DEPARTMENT OF PATHOLOGY AND [address] [place] [address] Folate level (12/06/2017 2:00 AM CDT)Only the most recent of2 resultswithin the time period is included. Folate 2.6 (L) 4.8 - 24.2 ng/mL [facility] DEPARTMENT OF PATHOLOGY AND [facility] MEDICINE Specimen Serum Performing Organization Address [facility] Phone Number [facility] DEPARTMENT OF PATHOLOGY AND [address] [place] [address] Vitamin B12 level (12/06/2017 2:00 AM CDT)Only the most recent of2 resultswithin the time period is included. Vitamin B12 314 211 - 946 pg/mL [facility] DEPARTMENT OF PATHOLOGY Comment: AND [facility] Significant overlap exists between normal and deficiency states. However, most patients with deficiencies will have Serum B12 <200 pg/mL. Specimen Serum Performing Organization Address [facility] Phone Number [facility] DEPARTMENT OF PATHOLOGY AND [address] [place] [address] Albumin level (12/06/2017 2:00 AM CDT) Albumin 2.7 (L) 3.5 - 5.0 g/dL [facility] DEPARTMENT OF PATHOLOGY AND GENOMIC MEDICINE Specimen Plasma specimen Performing Organization Address [facility] Phone Number [facility] DEPARTMENT OF PATHOLOGY AND [address] [place] [address] Lactic acid level (12/05/2017 11:18 PM CDT)Only the most recent of2 resultswithin the time period is included. Lactic acid 1.4 0.5 - 2.2 mmol/L [facility] DEPARTMENT OF PATHOLOGY AND GENOMIC MEDICINE Specimen Plasma specimen Performing Organization Address [facility] Phone Number [facility] DEPARTMENT OF PATHOLOGY AND [address] [place] [address] CT Chest Wo Contrast (12/05/2017 11:06 PM CDT) Narrative Performed At Examination:CT CHEST WO CONTRAST [facility] Clinical History: Acute resp years old, Pleural effusion Comparison: None. Findings: CT scans are performed using radiation dose reduction techniques.Technical factors are evaluated and adjusted to ensure appropriate moderation of exposure.Automated dose management technology is applied to adjust radiation exposure while achieving a diagnostic quality image. CT scan of the chest was performed without intravenous contrast. Moderate right effusion and small to moderate left effusion are noted with bilateral dependent atelectasis versus infiltrate is seen. There is slight loculated component of left effusion. Nonspecific precarinal lymphadenopathy measures up to 1.6 cm. Subcarinal lymphadenopathy measures up to 1.8 cm in the short axis. Tip of the ET tube is above the remy. No pneumothorax is seen. IMPRESSION: 1. Moderate right effusion and small to moderate left effusion. Left effusion has a slightly loculated component. Bilateral associated dependent atelectasis versus infiltrate. 2. Mediastinal lymphadenopathy. [facility]-[id number] Procedure Note Interface, Radiology Results Incoming - 12/05/2017 11:31 PM CDT Examination: CT CHEST WO CONTRAST Clinical History: Acute resp illness 41 years old, Pleural effusion Comparison: None. Findings: CT scans are performed using radiation dose reduction techniques. Technical factors are evaluated and adjusted to ensure appropriate moderation of exposure. Automated dose management technology is applied to adjust radiation exposure while achieving a diagnostic quality image. CT scan of the chest was performed without intravenous contrast. Moderate right effusion and small to moderate left effusion are noted with bilateral dependent atelectasis versus infiltrate is seen. There is slight loculated component of left effusion. Nonspecific precarinal lymphadenopathy measures up to 1.6 cm. Subcarinal lymphadenopathy measures up to 1.8 cm in the short axis. Tip of the ET tube is above the remy. No pneumothorax is seen. IMPRESSION: 1. Moderate right effusion and small to moderate left effusion. Left effusion has a slightly loculated component. Bilateral associated dependent atelectasis versus infiltrate. 2. Mediastinal lymphadenopathy. [facility]-[id number] Performing Organization Address City/State/Zipcode Phone Number [facility] [address] [phone] Pv duplex venous lower extremity (12/05/2017 6:13 PM CDT) Narrative Performed At [facility] Vascular Ultrasound Laboratory Lower Extremity Venous Report [address] [place] [address] Pat.Name:Jose CASTILLO.ID:[id number] .Date: 12/05/2017 Refer.MD:LOURDES AVINA MD Exam Time: 5:47:00 PMStudy Type:LE Venous Height:71inWeight: 233lb BSA: 2.25 m2 DOBAge:1945,72Y Sex: MALESonogrphr: Bailey Sebastian RVT Pat. Stat.:Inpatient Room:[place] [address] TapeVol: MARY, CPT - 4: 11803 Echo Event ID:[id number] Order ID:[id number] Reason for Study:LE swelling. History of cirrhosis, cardiomyopathy, COPD, hyperlipidemia, HTN, renal disorder, [place], PVD. Procedures:Colorflow, Grayscale/2D, Pulsed wave Doppler Race: SUMMARY: DUPLEX SCAN OBSERVATIONS Deep VeinsSuperficial Veins RightLeft RightLeft EIVGSV (prox) NormalNormal CFV Normal Normal (above knee) Femoral Normal Normal GSV (dist) Normal Normal Profunda Normal Normal (below knee) Popliteal Normal Normal PT (prox) Not Visualized Not visualizedSSV Not Visualized Not Visualized PT (dist) Normal Normal Peroneal Normal Not Visualized RIGHT:There is normal compressibility with no evidence of echogenic material noted within the lumen of the visualized veins. Colorflow and Doppler signals are normal. LEFT:There is normal compressibility with no evidence of echogenic material noted within the lumen of the visualized veins. Colorflow and Doppler signals are normal. PRELIMINARY FINDINGS 1. There is no evidence of venous thrombosis of visualized veins in bilateral lower extremities. Preliminary reported to ESAU Weathers at 18:20 on 12/05/17. PHYSICIAN INTERPRETATION Venous examination of the both lower extremities demonstrated no evidence of venous thrombosis in the visualized veins.Normal compressibility and augmentation of all veins visualized. Signed 12/05/2017 09:52 PM Mark Reyes MD, RPVI Procedure Note Interface, Radiology Results In - 12/05/2017 9:53 PM CDT Vascular Ultrasound Laboratory Lower Extremity Venous Report [address] [place] [address] Pat.Name: JONATHAN JANNETTE Pat.ID: [id number] .Date: 12/05/2017 Refer.MD: LOURDES AVINA MD Exam Time: 5:47:00 PM Study Type:LE Venous Height: 71in Weight: 233lb BSA: 2.25 m2 Age: 2 1945,72Y Sex: MALE Sonogrphr: Bailey Sebastian RVT Pat. Stat.:Inpatient Room: [place] [address] Tape Vol: JJ, CPT - 4: 50833 Echo Event ID:[id number] Order ID: [id number] Reason for Study:LE swelling. History of cirrhosis, cardiomyopathy, COPD, hyperlipidemia, HTN, renal disorder, [place], PVD. Procedures:Colorflow, Grayscale/2D, Pulsed wave Doppler Race: SUMMARY: DUPLEX SCAN OBSERVATIONS Deep Veins Superficial Veins Right Left Right Left EIV GSV (prox) Normal Normal CFV Normal Normal (above knee) Femoral Normal Normal GSV (dist) Normal Normal Profunda Normal Normal (below knee) Popliteal Normal Normal PT (prox) Not Visualized Not visualized SSV Not Visualized Not Visualized PT (dist) Normal Normal Peroneal Normal Not Visualized RIGHT: There is normal compressibility with no evidence of echogenic material noted within the lumen of the visualized veins. Colorflow and Doppler signals are normal. LEFT:There is normal compressibility with no evidence of echogenic material noted within the lumen of the visualized veins. Colorflow and Doppler signals are normal. PRELIMINARY FINDINGS 1. There is no evidence of venous thrombosis of visualized veins in bilateral lower extremities. Preliminary reported to ESAU Weathers at 18:20 on 12/05/17. PHYSICIAN INTERPRETATION Venous examination of the both lower extremities demonstrated no evidence of venous thrombosis in the visualized veins. Normal compressibility and augmentation of all veins visualized. Signed 12/05/2017 09:52 PM Mark Reyes MD, RPVI Performing Organization Address City/State/Zipcode Phone Number [facility] [address] [place] [address] Urinalysis screen and microscopy, with reflex to culture (12/05/2017 5:50 PM CDT) Specimen site Random void [facility] DEPARTMENT OF PATHOLOGY AND GENOMIC MEDICINE Color, UA Yellow [facility] DEPARTMENT OF PATHOLOGY AND GENOMIC MEDICINE Appearance, UA Cloudy [facility] DEPARTMENT OF PATHOLOGY AND GENOMIC MEDICINE Specific gravity, UA 1.014 1.001 - 1.035 [facility] DEPARTMENT OF PATHOLOGY AND GENOMIC MEDICINE pH, UA 5.0 5.0 - 8.5 [facility] DEPARTMENT OF PATHOLOGY AND GENOMIC MEDICINE Protein, UA 3+ (A) Negative [facility] DEPARTMENT OF PATHOLOGY AND GENOMIC MEDICINE Glucose, UA Negative Negative [facility] DEPARTMENT OF PATHOLOGY AND GENOMIC MEDICINE Ketones, UA Negative Negative [facility] DEPARTMENT OF PATHOLOGY AND GENOMIC MEDICINE Bilirubin, UA Negative Negative [facility] DEPARTMENT OF PATHOLOGY AND GENOMIC MEDICINE Blood, UA Large (A) Negative [facility] DEPARTMENT OF PATHOLOGY AND GENOMIC MEDICINE Nitrite, UA Negative Negative [facility] DEPARTMENT OF PATHOLOGY AND GENOMIC MEDICINE Urobilinogen, UA <2.0 <2.0 [facility] DEPARTMENT OF PATHOLOGY AND GENOMIC MEDICINE Leukocyte esterase, UA Small (A) Negative [facility] DEPARTMENT OF PATHOLOGY AND GENOMIC MEDICINE Epithelial cells, UA <1 /HPF [facility] DEPARTMENT OF PATHOLOGY AND GENOMIC MEDICINE WBC, UA 36 (H) 0 - 1 /HPF [facility] DEPARTMENT OF PATHOLOGY AND GENOMIC MEDICINE RBC, UA 70 (H) 0 - 5 /HPF [facility] DEPARTMENT OF PATHOLOGY AND GENOMIC MEDICINE Bacteria, UA Moderate (A) None seen [facility] DEPARTMENT OF PATHOLOGY AND GENOMIC MEDICINE WBC clumps, UA Few (A) [facility] DEPARTMENT OF PATHOLOGY AND GENOMIC MEDICINE Yeast, UA None seen [facility] DEPARTMENT OF PATHOLOGY AND GENOMIC MEDICINE Yeast with pseudohyphae, UA None seen [facility] DEPARTMENT OF PATHOLOGY AND GENOMIC MEDICINE Granular casts, UA 2 (H) 0 - 1 /LPF [facility] DEPARTMENT OF PATHOLOGY AND GENOMIC MEDICINE Hyaline casts, UA 2 /LPF [facility] DEPARTMENT OF PATHOLOGY AND GENOMIC MEDICINE Specimen Urine Performing Organization Address City/[facility] Phone Number [facility] DEPARTMENT OF PATHOLOGY AND [address] [place] [address] Urine culture (12/05/2017 5:50 PM CDT) Urine culture isolate Gram positive gustavo [facility] DEPARTMENT OF colony count undetermined, PATHOLOGY AND GENOMIC probably due to inhibiting substance. MEDICINE (A) Comment: Specimen Information Specimen Source: Urine Specimen Site: Random void Specimen Urine - Random void Performing Organization Address City/[facility] Phone Number [facility] DEPARTMENT OF PATHOLOGY AND [address] [place] [address] Urea nitrogen, urine, random (12/05/2017 5:26 PM CDT) Urea nitrogen, urine, random 525 mg/dL [facility] DEPARTMENT OF PATHOLOGY AND GENOMIC MEDICINE Specimen Urine Performing Organization Address City/[facility] Phone Number [facility] DEPARTMENT OF PATHOLOGY AND [address] [place] [address] Sodium level, urine, random (12/05/2017 5:26 PM CDT) Sodium, urine, random 50 mEq/L [facility] DEPARTMENT OF PATHOLOGY AND GENOMIC MEDICINE Specimen Urine Performing Organization Address [facility] Phone Number [facility] DEPARTMENT OF PATHOLOGY AND [address] [place] [address] Creatinine level, urine, random (12/05/2017 5:26 PM CDT) Creatinine, urine, random 161 mg/dL [facility] DEPARTMENT OF PATHOLOGY AND GENOMIC MEDICINE Specimen Urine Performing Organization Address City/State/Zipcode Phone Number [facility] DEPARTMENT OF PATHOLOGY AND [address] [facility] [place] [address] GENOMIC MEDICINE Echocardiogram complete w contrast and 3D if needed (12/05/2017 4:42 PM CDT) Narrative Performed At [facility] Echocardiography Report [address], [address], [place] [address] Pat.Name:Jose CASTILLO.ID:[id number] .Date: 12/05/2017 Refer.MD:LOURDES AVINA MD Exam Time: 3:57:00 PMStudy Type:Routine Echo Height:71inWeight: 240lb BSA: 2.28 m2 DOBAge:1945,72Y Sex: MALEBP:120/68 HR:55 bpm Sonogrphr: Audra Conner MD; PORFIRIO Hurtado, RDCS Pat. Stat.:Inpatient Room:[facility] Study Status:Final Echo Event ID:[id number] Order ID:[id number] Reason for Study:Post Arrest History / Clinical:Chest Pain, Coronary Artery Disease, Hypertension, Myocardial Infarction, Systolic CHF, CKD, Hyperlipidemia, Obesity, Peripheral Vascular Disease, Acute NSTEMI Procedures:2D Echo, Colorflow Doppler, Portable, Stat, Intravenous Definity Contrast Race:C SUMMARY: LV size is upper limits of normal. EF=31%. Wall motion abnormalities present. LA volume is moderately enlarged. LV filling pressure is elevated, mean PCWP is 15-20mmHg. FINDINGS: LV: LV size is upper limits of normal. There is severe eccentric LVhypertrophy. LV EF is moderately to severely depressed. EF=31%. RV: RV size is normal. RV systolic function is moderately to severelydepressed. LA: LA volume is moderately enlarged. RA: RA volume is normal. AO: Aortic root diameter is mildly enlarged. NILAM: No pericardial effusion. IAS:Interatrial septum is thickened consistent with lipomatous hypertrophy. AV: No structural AV abnormalities noted. MV: No structural MV abnormalities noted. A trace of mitral regurgitation. PV: No structural PV abnormalities noted. A trace of pulmonic regurgitation. TV: No structural TV abnormalities noted. [place]: LV relaxation is impaired. LV filling pressure is elevated, meanPCWP is 15-20mmHg. Other:Insufficient TR jet to estimate PA systolic pressure. MEASUREMENTS: 2D Parasternal Long [place] LA Ds5.7 cmLV%fs 20 % Ao Rtd 4.2 cmIndex1.8 cm/m IVSd 1.4 cm LVOT 2.4 cmLVPWd1.4 cm Ao An2.4 cm LV Zqob807 g(122-174) LVIDd6.2 cmIndex2.7 cm/m LVM Ahfez650.1 g/m2 LVIDs5 cmRWT0.5 LV EF SinglePlane LV Ad 47.5 cm2(9.5-22.3) [id number] ml Index64.5 ml/m EKFJO456.5 ml (65-193) Index93.7 ml/m LV SV 66.5 ml LV As 38.5 cm2(4-11.6) LV EF 31.2 %(63-77) LA Sng Plane LA Area 28.5 cm2(8.8-23.4) LA Vol 100.1 ml Index43.9 ml/m LA LngAx 6.2 cm RA Sng Plane RA Area 24.9 cm2(8.3-19.5) RA Vol80.7 ml Index35.4 ml/m RA LngAx 6.4 cm WALL MOTION: RESTING WALL MOTION: Apical wall is akinetic.Basal Anterior, Basal Anteroseptal, Basal Inferoseptal, Basal Inferior, Basal Inferolateral, Mid Anterior, Mid Anteroseptal, Mid Inferoseptal, Mid Inferior, Mid Inferolateral, Apical Anterior, Apical Septal, Apical Inferior, Apical Lateral villafana are hypokinetic. Normal in all other villafana. Wall Index=1.9 Signed 12/05/2017 05:20 PM Yonathan Bro M.D. Procedure Note Interface, Radiology Results In - 12/05/2017 5:21 PM CDT Echocardiography Report [address] [place] [address] Pat.Name: JANNETTE CASTILLO [facility].ID: [id number] .Date: 12/05/2017 Refer.MD: LOURDES AVINA MD Exam Time: 3:57:00 PM Study Type:Routine Echo Height: 71in Weight: 240lb BSA: 2.28 m2 Age: 2 1945,72Y Sex: MALE BP: 120/68 HR: 55 bpm Sonogrphr: Audra Conner MD; Dunia Lopez BS, RDCS Pat. Stat.:Inpatient Room: [facility] Study Status:Final Echo Event ID:[id number] Order ID: [id number] Reason for Study:Post Arrest History / Clinical:Chest Pain, Coronary Artery Disease, Hypertension, Myocardial Infarction, Systolic CHF, CKD, Hyperlipidemia, Obesity, Peripheral Vascular Disease, Acute NSTEMI Procedures:2D Echo, Colorflow Doppler, Portable, Stat, Intravenous Definity Contrast Race: C SUMMARY: LV size is upper limits of normal. EF=31%. Wall motion abnormalities present. LA volume is moderately enlarged. LV filling pressure is elevated, mean PCWP is 15-20mmHg. FINDINGS: LV: LV size is upper limits of normal. There is severe eccentric LV hypertrophy. LV EF is moderately to severely depressed. EF=31%. RV: RV size is normal. RV systolic function is moderately to severely depressed. LA: LA volume is moderately enlarged. RA: RA volume is normal. AO: Aortic root diameter is mildly enlarged. NILAM: No pericardial effusion. IAS: Interatrial septum is thickened consistent with lipomatous hypertrophy. AV: No structural AV abnormalities noted. MV: No structural MV abnormalities noted. A trace of mitral regurgitation. PV: No structural PV abnormalities noted. A trace of pulmonic regurgitation. TV: No structural TV abnormalities noted. [place]: LV relaxation is impaired. LV filling pressure is elevated, mean PCWP is 15-20mmHg. Other: Insufficient TR jet to estimate PA systolic pressure. MEASUREMENTS: 2D Parasternal Long [place] LA Ds 5.7 cm LV%fs 20 % Ao Rtd 4.2 cm Index 1.8 cm/m IVSd 1.4 cm LVOT 2.4 cm LVPWd 1.4 cm Ao An 2.4 cm LV Mass 422 g (122-174) LVIDd 6.2 cm Index 2.7 cm/m LVM Index 185.1 g/m2 LVIDs 5 cm RWT 0.5 LV EF SinglePlane LV Ad 47.5 cm2 (9.5-22.3) LVESV 147 ml Index 64.5 ml/m LVEDV 213.5 ml (65-193) Index 93.7 ml/m LV SV 66.5 ml LV As 38.5 cm2 (4-11.6) LV EF 31.2 % (63-77) LA Sng Plane LA Area 28.5 cm2 (8.8-23.4) LA Vol 100.1 ml Index 43.9 ml/m LA LngAx 6.2 cm RA Sng Plane RA Area 24.9 cm2 (8.3-19.5) RA Vol 80.7 ml Index 35.4 ml/m RA LngAx 6.4 cm WALL MOTION: RESTING WALL MOTION: Apical wall is akinetic. Basal Anterior, Basal Anteroseptal, Basal Inferoseptal, Basal Inferior, Basal Inferolateral, Mid Anterior, Mid Anteroseptal, Mid Inferoseptal, Mid Inferior, Mid Inferolateral, Apical Anterior, Apical Septal, Apical Inferior, Apical Lateral villafana are hypokinetic. Normal in all other villafana. Wall Index=1.9 Signed 12/05/2017 05:20 PM Yonathan Bro M.D. Performing Organization Address [facility]/Zipcode Phone Number [facility] [address] [place] [address] Ionized calcium, arterial (12/05/2017 3:50 PM CDT) Ionized calcium, arterial 1.07 (L) 1.11 - 1.32 mmol/L [facility] DEPARTMENT OF PATHOLOGY AND GENOMIC MEDICINE Specimen Blood Performing Organization Address [facility] Phone Number [facility] DEPARTMENT OF PATHOLOGY AND [address] [place] [address] [facility] B natriuretic peptide (12/05/2017 3:50 PM CDT) BNP 1,034 (H) 0 - 100 pg/mL [facility] DEPARTMENT OF PATHOLOGY AND GENOMIC MEDICINE Performing Organization Address [facility] Phone Number [facility] DEPARTMENT OF PATHOLOGY AND [address] [place] [address] [facility] Creatine kinase, total (CPK) (12/05/2017 3:50 PM CDT) Creatine kinase 190 39 - 308 U/L [facility] DEPARTMENT OF PATHOLOGY AND GENOMIC MEDICINE Specimen Plasma specimen Performing Organization Address [facility] Phone Number [facility] DEPARTMENT OF PATHOLOGY AND [address] [place] [address] GENOMIC MEDICINE Hepatic function panel (12/05/2017 3:50 PM CDT) Albumin 2.6 (L) 3.5 - 5.0 g/dL [facility] DEPARTMENT OF PATHOLOGY AND GENOMIC MEDICINE Total bilirubin 0.5 0.0 - 1.2 mg/dL [facility] DEPARTMENT OF PATHOLOGY AND GENOMIC MEDICINE Bilirubin direct <0.2 0.0 - 0.3 mg/dL [facility] DEPARTMENT OF PATHOLOGY AND GENOMIC MEDICINE Alkaline phosphatase 70 40 - 129 U/L [facility] DEPARTMENT OF PATHOLOGY AND GENOMIC MEDICINE Protein 5.6 (L) 6.3 - 8.3 g/dL [facility] DEPARTMENT OF Comment: PATHOLOGY AND GENOMIC [place] 4.6-7.0 g/dL MEDICINE 1 week 4.4-7.6 g/dL 7 months-1year5.1-7.3 g/dL 1-2 years5.6-7.5 g/dL >3 years6.0-8.0 g/dL 18-150 6.3-8.3 g/dL ALT 17 5 - 50 U/L [facility] DEPARTMENT OF PATHOLOGY AND GENOMIC MEDICINE AST 21 10 - 50 U/L [facility] DEPARTMENT OF PATHOLOGY AND GENOMIC MEDICINE Specimen Plasma specimen Performing Organization Address [facility] Phone Number [facility] DEPARTMENT OF PATHOLOGY AND [address] [place] [address] GENOMIC MEDICINE Cytology (non-gynecological) request (12/05/2017 12:20 PM CDT) [facility] DEPARTMENT OF PATHOLOGY AND GENOMIC MEDICINE Cytology See link below for PDF [facility] DEPARTMENT OF (non-gynecological) report Lab Report PATHOLOGY AND GENOMIC MEDICINE Result status This is Final Report to [facility] DEPARTMENT OF [id number] PATHOLOGY AND GENOMIC MEDICINE Performing Organization Address City/[facility]/Zipcode Phone Number [facility] DEPARTMENT OF PATHOLOGY AND [address] [place] [address] GENOMIC MEDICINE Echocardiogram complete w contrast and 3D if needed (11/07/2017 11:59 AM CDT) Narrative Performed At [facility] Echocardiography Report Pat.Name:Jose CASTILLO.ID:[id number] St.Date: 11/07/2017 Refer.MD:LOURDES AVINA MD Exam Time: 12:04:00 PM Study Type:Routine Echo Height:71inWeight: 240lb BSA: 2.28 m2 DOBAge:1945,72Y Sex: MALEBP:164/79 HR:65 bpmSonogrphr: Joselyn Albert RDCS, RVT Pat. Stat.:OutpatientRoom:[place] Study Status:Final Echo Event ID:[id number] Order ID:[id number] Reason for Study:SOB, suspected cardiac etiology, Systolic congestive heart failure, Shortness of breath, Cardiomyopahty, Congestive heart failure History / Clinical:Chest Pain, Coronary Artery Disease, Hypertension, Myocardial Infarction, Systolic CHF, CKD, Hyperlipidemia, Obesity, Peripheral Vascular Disease, Acute NSTEMI Procedures:2D Echo, Colorflow Doppler, Intravenous Definity Contrast Race:C SUMMARY: LV size is moderately enlarged. There is moderate eccentric LV hypertrophy. LV EF is moderately to severely depressed. Wall motion abnormalities present. FINDINGS: LV: LV size is moderately enlarged. There is moderate eccentric LVhypertrophy. LV EF is moderately to severely depressed. EstimatedEF is 30-34%. RV: RV size is normal. RV function is normal. LA: LA volume is severely enlarged. RA: RA size is normal. AO: Aortic root is normal in size. NILAM: No pericardial effusion. AV: No structural AV abnormalities noted. MV: No structural MV abnormalities noted. Mild mitral regurgitation. PV: Pulmonic valve not well seen. TV: No structural TV abnormalities noted. [place]: LV relaxation is impaired. LV filling pressure is elevated. Other:Insufficient TR jet to estimate PA systolic pressure. MEASUREMENTS: 2D Parasternal Long [place] LVOT 2.7 cmLA Ds5.4 cm LVIDd6.1 cmIndex2.7 cm/m Ao An2.8 cm LVIDs4.5 cmAo Rtd 3.4 cm Index1.5 cm/m LV%fs 26.8 % LV Wiuj567.8 g(122-174) IVSd 1.5 cmRWT0.5 LVPWd1.5 cm LA Sng Plane LA Area 28.2 cm2(8.8-23.4) LA Vol 108.1 ml Index47.4 ml/m LA LngAx 6.3 cm WALL MOTION: RESTING WALL MOTION: Apical Anterior, Apical Septal, Apical Inferior, Apical Lateral, Apical villafana are akinetic.Basal Anterior, Basal Anteroseptal, Basal Inferoseptal, Basal Inferior, Basal Inferolateral, Basal Anterolateral, Mid Anterior, Mid Anteroseptal, Mid Inferoseptal, Mid Inferior, Mid Inferolateral, Mid Anterolateral villafana are hypokinetic. Wall Index=2.3 Signed 11/07/2017 02:34 PM Damien Carroll MD Procedure Note Interface, Radiology Results In - 11/07/2017 2:35 PM CDT [facility] Echocardiography Report Pat.Name: JANNETTE CASTILLO [facility].ID: [id number] .Date: 11/07/2017 Refer.MD: LOURDES AVINA MD Exam Time: 12:04:00 PM Study Type:Routine Echo Height: 71in Weight: 240lb BSA: 2.28 m2 Age: 2 1945,72Y Sex: MALE BP: 164/79 HR: 65 bpm Sonogrphr: Joselyn Buswell RDCS, RVT Pat. Stat.:Outpatient Room: [place] Study Status:Final Echo Event ID:[id number] Order ID: [id number] Reason for Study:SOB, suspected cardiac etiology, Systolic congestive heart failure, Shortness of breath, Cardiomyopahty, Congestive heart failure History / Clinical:Chest Pain, Coronary Artery Disease, Hypertension, Myocardial Infarction, Systolic CHF, CKD, Hyperlipidemia, Obesity, Peripheral Vascular Disease, Acute NSTEMI Procedures:2D Echo, Colorflow Doppler, Intravenous Definity Contrast Race: C SUMMARY: LV size is moderately enlarged. There is moderate eccentric LV hypertrophy. LV EF is moderately to severely depressed. Wall motion abnormalities present. FINDINGS: LV: LV size is moderately enlarged. There is moderate eccentric LV hypertrophy. LV EF is moderately to severely depressed. Estimated EF is 30-34%. RV: RV size is normal. RV function is normal. LA: LA volume is severely enlarged. RA: RA size is normal. AO: Aortic root is normal in size. NILAM: No pericardial effusion. AV: No structural AV abnormalities noted. MV: No structural MV abnormalities noted. Mild mitral regurgitation. PV: Pulmonic valve not well seen. TV: No structural TV abnormalities noted. [place]: LV relaxation is impaired. LV filling pressure is elevated. Other: Insufficient TR jet to estimate PA systolic pressure. MEASUREMENTS: 2D Parasternal Long [place] LVOT 2.7 cm LA Ds 5.4 cm LVIDd 6.1 cm Index 2.7 cm/m Ao An 2.8 cm LVIDs 4.5 cm Ao Rtd 3.4 cm Index 1.5 cm/m LV%fs 26.8 % LV Mass 475.8 g (122-174) IVSd 1.5 cm RWT 0.5 LVPWd 1.5 cm LA Sng Plane LA Area 28.2 cm2 (8.8-23.4) LA Vol 108.1 ml Index 47.4 ml/m LA LngAx 6.3 cm WALL MOTION: RESTING WALL MOTION: Apical Anterior, Apical Septal, Apical Inferior, Apical Lateral, Apical villafana are akinetic. Basal Anterior, Basal Anteroseptal, Basal Inferoseptal, Basal Inferior, Basal Inferolateral, Basal Anterolateral, Mid Anterior, Mid Anteroseptal, Mid Inferoseptal, Mid Inferior, Mid Inferolateral, Mid Anterolateral villafana are hypokinetic. Wall Index=2.3 Signed 11/07/2017 02:34 PM Damien Carroll MD Performing Organization Address City/State/[facility] Phone Number [facility] [address] [place] [address] after 06/10/2017 Insurance Payer Benefit Plan / Group Subscriber ID Type Phone Address [employer] MED[employer]ARE [employer] MEDICARE PPO/PFFS/ERS [facility] xxxxxxxxx PPO Advance Directives Patient has advance care planning documents on file. For more information, please contact:[facility] [place] [address]
[2018-06-11] MEDS ORDERED: LIDOCAINE VISCOUS 2% SOLN 15 ML UDC ONE (07:53)
--- NOTE | 2018-06-11 08:35 | ER ---
Nurse's Notes [facility] Name: Romulo Rizzo Age: 72 yrs Sex: Male : 1945 Arrival Date: 06/11/2018 Time: 07:12 Bed 20 Private MD: None, None Diagnosis: Retention of urine, unspecified;End stage renal disease Presentation: 06/11 07:15 Presenting complaint: Patient states: urinary urgency. Pt reports last void was last aa5 night at 10pm and states "it was only a little bit". Reports last normal void was on Monday. Pt c/o suprapubic pain. Reports last dialysis was Monday, reports recent placement of dialysis fistula on . Pt reports he started Dialysis December 2017. 07:15 Transition of care: patient was not received from another setting of care. Onset of aa5 symptoms was May 2018. Risk Assessment: Do you want to hurt yourself or someone else? Patient reports no desire to harm self or others. Initial Sepsis Screen: Does the patient meet any 2 criteria? No. Patient's initial sepsis screen is negative. Does the patient have a suspected source of infection? No. Patient's initial sepsis screen is negative. Care prior to arrival: None. 07:15 Method Of Arrival: Ambulatory aa5 07:15 Acuity: ERMIAS 3 aa5 Historical: - Allergies: 07:15 No Known Allergies; aa5 - PMHx: 07:15 CHF; Hypertension; Renal Disease; Myocardial infarction; Dialysis; aa5 - PSHx: 07:15 Heart stents; Appendectomy; Dialysis catheter to chest; Dialysis fistula to left arm; aa5 - Immunization history:: Adult Immunizations up to date. - Social history:: Smoking status: Patient/guardian denies using tobacco. - Ebola Screening: : No symptoms or risks identified at this time. - Family history:: not pertinent. Screenin:45 Abuse screen: Denies threats or abuse. Nutritional screening: No deficits noted. em Tuberculosis screening: No symptoms or risk factors identified. Fall Risk None identified. Assessment: 07:45 General: Appears in no apparent distress. uncomfortable, Behavior is calm, cooperative, em Denies fever. Pain: Complains of pain in suprapubic area Pain currently is 3 out of 10 on a pain scale. Neuro: Level of Consciousness is awake, alert, obeys commands, Oriented to person, place, time, situation. Cardiovascular: Patient's skin is warm and dry. Dialysis shunt: in the left arm, with palpable thrill, with auscultated bruit, with no erythema, with no edema, no bleeding noted. Respiratory: Airway is patent Respiratory effort is even, unlabored, Respiratory pattern is regular, symmetrical. GI: Abdomen is round non-distended. : Reports inability to void, since last night at 11 pm. EENT: No signs and/or symptoms were reported regarding the EENT system. Derm: Skin is intact, is healthy with good turgor, Skin is pink, warm \\T\\ dry. Musculoskeletal: Range of motion: intact in all extremities. 08:00 General: The previous assessment is accurate, call light remains within reach. . ss 08:10 Reassessment: Patient appears in no apparent distress at this time. Patient and/or em family updated on plan of care and expected duration. Pain level reassessed. Patient is alert, oriented x 3, equal unlabored respirations, skin warm/dry/pink. Patient states feeling better. Patient states symptoms have improved. 09:17 Reassessment: Patient appears in no apparent distress at this time. Patient and/or em family updated on plan of care and expected duration. Pain level reassessed. Patient is alert, oriented x 3, equal unlabored respirations, skin warm/dry/pink. Patient denies pain at this time. Patient states feeling better. Vital Signs: 07:15 BP 182 / 66; Pulse 70; Resp 18 S; Temp 98.7(O); Pulse Ox 95% on R/A; Weight 99.79 kg aa5 (R); Height 5 ft. 11 in. (180.34 cm) (R); Pain 3/10; 09:16 BP 165 / 63; Pulse 65; Resp 16; Pulse Ox 99% on R/A; em 07:15 Body Mass Index 30.68 (99.79 kg, 180.34 cm) aa5 ED Course: 07:12 Patient arrived in ED. sb2 07:12 None, None is Private Physician. sb2 07:15 Arm band placed on Patient placed in an exam room, on a stretcher. aa5 07:18 Tj Fatima MD is Attending Physician. ericka 07:25 Triage completed. aa5 07:28 Ced Dobbs LVN is Primary Nurse. em 07:45 Patient has correct armband on for positive identification. Placed in gown. Bed in low em position. Call light in reach. Pulse ox on. NIBP on. 07:45 Bladder scan completed. 748 mL. em 08:00 Nicole cath inserted, using sterile technique, 18 Fr., by nm, balloon inflated, to em gravity drainage, urine specimen collected. returned clear yellow urine. Patient tolerated well. 08:38 Carmen Whittaker MD is Referral Physician. [facility] 09:17 No provider procedures requiring assistance completed. Patient did not have IV access em during this emergency room visit. Administered Medications: No medications were administered Outcome: 08:35 Discharge ordered by . [facility] 09:17 Discharged to home ambulatory. em 09:17 Condition: good 09:17 Discharge instructions given to patient, Instructed on discharge instructions, follow up and referral plans. medication usage, Demonstrated understanding of instructions, follow-up care, medications, Prescriptions given X 2. 09:18 Patient left the ED. em Signatures: Tj Fatima MD MD cha Munoz, Edgar, LVN PIN [employer] MACHINE MECHANIC em Bria Arnold, RN RN aa5 Renata Bautista RN RN ss Tiffanie Salguero sb2 Corrections: (The following items were deleted from the chart) 09:18 09:14 Bladder scan completed. 748 mL em em
--- NOTE | 2018-06-11 08:36 | EDPHYS ---
Physician Documentation [facility] Name: Romulo Rizzo Age: 72 yrs Sex: Male : 1945 Arrival Date: 06/11/2018 Time: 07:12 Bed 20 Private MD: None, None ED Physician Tj Fatima HPI: 06/11 08:21 This 72 yrs old Male presents to ER via Ambulatory with complaints of Urinary ericka Retention. 08:21 The patient presents with pelvic pain. Onset: The symptoms/episode began/occurred this ericka morning, today. Modifying factors: The symptoms are alleviated by nothing, the symptoms are aggravated by nothing. Associated signs and symptoms: The patient has no apparent associated signs or symptoms. Severity of symptoms: At their worst the symptoms were mild, in the emergency department the symptoms are unchanged. Historical: - Allergies: 07:15 No Known Allergies; aa5 - PMHx: 07:15 CHF; Hypertension; Renal Disease; Myocardial infarction; Dialysis; aa5 - PSHx: 07:15 Heart stents; Appendectomy; Dialysis catheter to chest; Dialysis fistula to left arm; aa5 - Immunization history:: Adult Immunizations up to date. - Social history:: Smoking status: Patient/guardian denies using tobacco. - Ebola Screening: : No symptoms or risks identified at this time. - Family history:: not pertinent. ROS: 08:21 Constitutional: Negative for fever, chills, and weight loss, Eyes: Negative for injury, ericka pain, redness, and discharge, ENT: Negative for injury, pain, and discharge, Neck: Negative for injury, pain, and swelling, Cardiovascular: Negative for chest pain, palpitations, and edema, Respiratory: Negative for shortness of breath, cough, wheezing, and pleuritic chest pain, Abdomen/GI: Negative for abdominal pain, nausea, vomiting, diarrhea, and constipation, Back: Negative for injury and pain, MS/Extremity: Negative for injury and deformity, Skin: Negative for injury, rash, and discoloration, Neuro: Negative for headache, weakness, numbness, tingling, and seizure, Psych: Negative for depression, anxiety, suicide ideation, homicidal ideation, and hallucinations, Allergy/Immunology: Negative for hives, rash, and allergies, Endocrine: Negative for neck swelling, polydipsia, polyuria, polyphagia, and marked weight changes, Hematologic/Lymphatic: Negative for swollen nodes, abnormal bleeding, and unusual bruising. 08:21 : Positive for Exam: 08:21 Constitutional: This is a well developed, well nourished patient who is awake, alert, ericka and in no acute distress. Head/Face: Normocephalic, atraumatic. Eyes: Pupils equal round and reactive to light, extra-ocular motions intact. Lids and lashes normal. Conjunctiva and sclera are non-icteric and not injected. Cornea within normal limits. Periorbital areas with no swelling, redness, or edema. ENT: Nares patent. No nasal discharge, no septal abnormalities noted. Tympanic membranes are normal and external auditory canals are clear. Oropharynx with no redness, swelling, or masses, exudates, or evidence of obstruction, uvula midline. Mucous membranes moist. Neck: Trachea midline, no thyromegaly or masses palpated, and no cervical lymphadenopathy. Supple, full range of motion without nuchal rigidity, or vertebral point tenderness. No Meningismus. Chest/axilla: Normal chest wall appearance and motion. Nontender with no deformity. No lesions are appreciated. Cardiovascular: Regular rate and rhythm with a normal S1 and S2. No gallops, murmurs, or rubs. Normal PMI, no JVD. No pulse deficits. Respiratory: Lungs have equal breath sounds bilaterally, clear to auscultation and percussion. No rales, rhonchi or wheezes noted. No increased work of breathing, no retractions or nasal flaring. Back: No spinal tenderness. No costovertebral tenderness. Full range of motion. Male : Normal genitalia with no discharge or lesions. Skin: Warm, dry with normal turgor. Normal color with no rashes, no lesions, and no evidence of cellulitis. MS/ Extremity: Pulses equal, no cyanosis. Neurovascular intact. Full, normal range of motion. Neuro: Awake and alert, GCS 15, oriented to person, place, time, and situation. Cranial nerves II-XII grossly intact. Motor strength 5/5 in all extremities. Sensory grossly intact. Cerebellar exam normal. Normal gait. Psych: Awake, alert, with orientation to person, place and time. Behavior, mood, and affect are within normal limits. 08:21 Abdomen/GI: Inspection: distension, Bowel sounds: normal, Palpation: mild abdominal tenderness, in the suprapubic area, Liver: no appreciated palpable abnormalities, Hernia: not appreciated. 08:25 : sosa placed, post void residual 650cc. [facility] Vital Signs: 07:15 BP 182 / 66; Pulse 70; Resp 18 S; Temp 98.7(O); Pulse Ox 95% on R/A; Weight 99.79 kg aa5 (R); Height 5 ft. 11 in. (180.34 cm) (R); Pain 3/10; 09:16 BP 165 / 63; Pulse 65; Resp 16; Pulse Ox 99% on R/A; em 07:15 Body Mass Index 30.68 (99.79 kg, 180.34 cm) aa5 MDM: 07:18 Patient medically screened. [facility] 08:25 Data reviewed: vital signs, nurses notes, lab test result(s), urinalysis. [facility] 06/11 08:19 Order name: Urine Culture [facility] 06/11 08:39 Order name: Urine Dipstick--Ancillary (enter results) 06/11 08:19 Order name: Urine Dipstick-Ancillary (obtain specimen); Complete Time: 08:34 [facility] 06/11 08:19 Order name: Sosa; Complete Time: 08:34 [facility] 06/11 08:19 Order name: Sosa Leg Bag; Complete Time: 09:10 [facility] Administered Medications: No medications were administered Disposition: 06/11/18 08:35 Discharged to Home. Impression: Retention of urine, unspecified, End stage renal disease. - Condition is Stable. - Discharge Instructions: Acute Urinary Retention, Male, Acute Urinary Retention, Male, [id number]. - Prescriptions for Flomax 0.4 mg Oral Capsule, Sust. Release 24 hr - take 1 capsule by ORAL route once daily 1/2 hour following the same meal each day; 30 capsule. Bactrim DS 800- 160 mg Oral Tablet - take 1 tablet by ORAL route every 12 hours for 7 days; 14 tablet. - Medication Reconciliation Form, Thank You Letter, Antibiotic Education, Prescription Opioid Use form. - Follow up: Private Physician; When: 2 - 3 days; Reason: Recheck today's complaints, Continuance of care, Re-evaluation by your physician. Follow up: Carmen Whittaker MD; When: 2 - 3 days; Reason: Recheck today's complaints, Re-evaluation by your physician. - Problem is new. - Symptoms have improved. Signatures: Dispatcher [employer] Tj Chacon MD MD cha Munoz, Edgar, HE[employer] TECHNOLOGY TEACHER [employer] TECHN[employer] TEACHER Bria Arnold, RN RN aa5 Corrections: (The following items were deleted from the chart) 08:38 08:35 06/11/2018 08:35 Discharged to Home. Impression: Retention of urine, unspecified. [facility] Condition is Stable. Forms are Medication Reconciliation Form, Thank You Letter, Antibiotic Education, Prescription Opioid Use. Follow up: Private Physician; When: 2 - 3 days; Reason: Recheck today's complaints, Continuance of care, Re-evaluation by your physician. Problem is new. Symptoms have improved. [facility] 09:18 08:38 06/11/2018 08:35 Discharged to Home. Impression: Retention of urine, unspecified; em End stage renal disease. Condition is Stable. Discharge Instructions: Acute Urinary Retention, Male, Acute Urinary Retention, Male, [id number]. Prescriptions for Flomax 0.4 mg Oral Capsule, Sust. Release 24 hr - take 1 capsule by ORAL route once daily 1/2 hour following the same meal each day; 30 capsule, Bactrim DS 800-160 mg Oral Tablet - take 1 tablet by ORAL route every 12 hours for 7 days; 14 tablet. and Forms are Medication Reconciliation Form, Thank You Letter, Antibiotic Education, Prescription Opioid Use. Follow up: Private Physician; When: 2 - 3 days; Reason: Recheck today's complaints, Continuance of care, Re-evaluation by your physician. Follow up: Carmen Whittaker; When: 2 - 3 days; Reason: Recheck today's complaints, Re-evaluation by your physician. Problem is new. Symptoms have improved. ericka
[2018-06-11 08:43] LABS: Urine Blood TRACE (NEG); Urine Glucose TRACE (NEG); Urine Protein 3+ (NEG); Urine Specific Gravity 1.025 (1.005-1.030); Urine pH 5.5 (5.0-7.0)
== END 2018-06-11 09:18 | disposition home or self-care (01) ==
LOC: ER 07:09
DX: I13.2 Hypertensive heart and chronic kidney disease with heart failure and with stage 5 chronic kidney disease, or end stage renal disease (principal); N18.6 End stage renal disease; R33.9 Retention of urine, unspecified; I50.9 Heart failure, unspecified; Z99.2 Dependence on renal dialysis; I25.2 Old myocardial infarction; Z95.5 Presence of coronary angioplasty implant and graft
CPT/HCPCS: 51702; 81003; 87086; 87088; 99284

== ENCOUNTER 2018-06-25 14:26 | Inpatient (IN) | payer OTHER ==
--- OUTSIDE RECORDS SUMMARY | 2018-06-25 14:29 | XMS REPORT | Clinical Summary ---
:1945 Author Organization [facility] Address [address] [place] [address] Care Team Providers Name Role Phone Dayna [...] mg TABLET(10 MG) tablet BY MOUTH DAILY atorvastatin Take 80 mg by 0 Discontinued [...] HIGH-DOSE ADM 0.5ML IM 0 03/23/2017 Discontinued , PF, 180 UTD 8 mcg/0.5 mL syringe [...] mg BY MOUTH EVERY 8 tablet DAY traMADol (ULTRAM) Take 1 tablet 10 tablet 0 06/07/2018 50 mg tablet (50 mg total) 8 by mouth every 8 (eight) hours as needed for moderate pain for up to 5 days. Active Problems Problem Noted Date H/O cardiac [...] elevated, mean PCWP is 15-20mmHg. CAD in [place] artery 01/23/2016 ESRD (end stage renal disease) on dialysis 01/23/2016 Overview: He was never on dialysis but after hospitalization placed and no on MWF - Dr. Sherly Hyman - site leader; hoping that kidney can recover to come off Essential hypertension 01/23/2016 Overview: Hydralazine 100 mg TID; isosorbide 40 mg Daily; amlodipine 10 mg; coreg 6.25 mg BID; Male erectile disorder 09/25/2014 Encounters Date Type Specialty Care Team Description 06/21/2018 Office Visit General Surgery Nithin Restrepo MD 06/07/2018 Anesthesia Event General Surgery [facility], Millie, PROCESS DEVELOPMENT ASSOCIATE 06/07/2018 Surgery General Surgery Kaye, LEFT BRACHIOCEPHALIC Nithin Salazar MD AV GRAFT INSERTION 06/07/2018 Hospital Encounter General Surgery Nithin Restrepo MD 05/31/2018 Pre-Admit Testing Pre-Admission Kaye Preop testing ( Primary Appointment Testing Nithin Salazar MD Dx) 05/31/2018 Office Visit General Surgery Kaye, ESRD on hemodialysis Nithin Salazar MD ([facility]) (Primary Dx) 05/15/2018 Refill Cardiology Lourdes Avina Refcecil Salazar MD 04/12/2018 Refill Cardiology Lourdes Avina MD 04/03/2018 Office Visit Cardiology Lourdes Avina Ischemic cardiomyopathy ( Primary Dx); MD Marie Stented coronary artery 03/06/2018 Jenaeill Lourdes Hardy MD 01/31/2018 Orders Only Cardiology Marco Antonio Lozoya MA 01/23/2018 Refill Cardiology Lourdes Avina Refill MD Marie 01/18/2018 Refill Cardiology Maxime, Med Refill Laura, MA 01/02/2018 Office Visit Cardiology Lourdes Avina [...] arrest; Pure hypercholesterolemia; Ischemic cardiomyopathy; CAD in [place] artery 12/22/2017 Refill Cardiology Maxime, Med Refill Laura, MA 12/22/2017 Refill Cardiology Maxime, Med Refill Laura, MA 12/22/2017 Orders Only Cardiology Laura Swartz MA 12/15/2017 Surgery Procedural Lourdes Avina Cv pci [[id number] (CPT)] Cardiology MD Marie 12/07/2017 Surgery Procedural Lourdes Avina Cv selective coronary Cardiology MD Marie angiography [[id number] (CPT)] 12/05/2017 - Hospital Encounter Cardiology Lourdes Avina Cardiac arrest ( Primary Dx); 12/19/2017 MD Marie Acute on chronic respiratory failure with hypoxia and hypercapnia; Pleural effusion, bilateral; Ischemic cardiomyopathy; Acute on chronic systolic CHF (congestive heart failure) 11/22/2017 Refill Lourdes Hardy Med Refcecil Salazar MD 10/31/2017 Office Visit Lourdes Hardy SOB (shortness of breath) ( Primary Dx); MD Marie CAD in [place] artery; Systolic congestive heart failure, unspecified congestive heart failure chronicity after 06/24/2017 Family History Medical History Relation Name Comments [...] Taken Blood Pressure 165/73 06/07/2018 3:45 PM TUBE COVERER Pulse 63 06/07/2018 3:45 PM TUBE COVERER Temperature 36.4 C (97.5 F) 06/07/2018 2:45 PM TUBE COVERER Respiratory Rate 18 06/07/2018 3:45 PM TUBE COVERER Oxygen Saturation 93% 06/07/2018 3:45 PM TUBE COVERER Inhaled Oxygen Concentration - - Weight 99.8 kg (220 lb) 06/07/2018 9:00 AM TUBE COVERER Height 180.3 cm (5' 11") 06/07/2018 9:00 AM TUBE COVERER Body Mass Index 30.68 06/07/2018 9:00 AM TUBE COVERER Plan of Treatment Date Type Specialty Care Team Description 07/17/2018 Office Visit General Surgery Nithin Restrepo MD [address] [facility] [address] [place], [place] [id number] 10/02/2018 Office Visit Cardiology Lourdes Avina MD [address] [facility] [address] [place], [place] [id number] Health Maintenance Due Date Last Done Comments COLON CANCER SCREENING 1996 SHINGLES VACCINES (1 of 2) 1996 PNEUMOCOCCAL POLYSACCHARIDE VACCINE AGE 65 AND OVER 2011 PNEUMOCOCCAL-13 2011 INFLUENZA VACCINE 01/17/2018 Implants Implanted Type Area Transitions Manager Rn Device Shelf Model / Identifier Expiration Serial / Date Lot Stent Coronary Syst Synergy (Mr) 3.00mm X 28mm - [id number] Coronary N/A: BSC 07/25/2018 [id number] / Implanted: 12/15/2017 (Quantity not on file) Stents N/A INTERVENTIONAL / CARDIOLOGY [id number] Set Cathztn Hmodial Lngtrm Accs 15fr 28cm Edge Simplicity - [id number] Surgical N/A: ARROW 08/16/2020 [id number] / Implanted: 12/12/2017 (Quantity not on file) Implants; N/A [employer] / Expanders; [id number] Extenders; Surgical Wires Graft Vasclr Center Line-Yeison Stdwl 40cm 6mm - [id number] Vascular N/A: W L GORE 08/24/2022 [id number] / Implanted: 06/07/2018 (Quantity not on file) Graft N/A [id number] / [id number] Penile Procedures Procedure Name Priority Date/Time Associated Diagnosis Comments TX AN ELECTIVE Routine 06/07/2018 11:16 AM ENDOTRACHEAL AIRWAY TUBE COVERER Procedure Note - Torey Bell MD - 06/07/2018 11:16 AM TUBE COVERER ANESTHESIA INTUBATION Performed by: Torey Bell MD [...] No Number of Attempts at Approach: 1 VENOGRAM, EXTREMITY 06/07/2018 10:15 AM TUBE COVERER End stage renal disease (HCC) Special Needs C-ARM CREATION, AV FISTULA 06/07/2018 10:15 AM TUBE COVERER End stage renal disease (HCC) Special Needs C-ARM GLUCOSE LEVEL, SYRINGE STAT 06/07/2018 9:42 Results for this AM TUBE COVERER procedure are in the results section. POTASSIUM, SYRINGE STAT 06/07/2018 9:42 Results for this AM TUBE COVERER procedure are in the results section. HEMOGLOBIN, SYRINGE STAT 06/07/2018 9:42 Results for this AM TUBE COVERER procedure are in the results section. ECG PRE/POST OP Routine 05/31/2018 5:43 Preop testing Results for this PM TUBE COVERER procedure are in the results section. ESTIMATED GFR Routine 05/31/2018 5:30 Results for this PM TUBE COVERER procedure are in the results section. COMPREHENSIVE METABOLIC Routine 05/31/2018 5:30 Preop testing Results for this PANEL PM TUBE COVERER procedure are in the results section. HC COMPLETE BLD COUNT Routine 05/31/2018 5:30 Preop testing Results for this W/AUTO DIFF PM TUBE COVERER procedure are in the results section. ECG [...] CDT procedure are in the results section. TX THORACENTESIS Routine 12/06/2017 5:39 Acute on chronic [...] are in SPECTRAL COLOR DOPPLER the results (44002) section. POC GLUCOSE Routine 12/05/2017 4:39 Results [...] ECHOCARDIOGRAM 2D Routine 11/07/2017 11:59 CAD in [place] Results for this COMPLETE W MMODE AM CDT artery procedure are in SPECTRAL COLOR DOPPLER SOB (shortness of the results (28526) breath) section. Systolic congestive heart failure, unspecified congestive heart failure chronicity after 06/24/2017 Results Potassium, syringe (06/07/2018 9:42 AM TUBE COVERER) Potassium, syringe 4.4 3.5 - 5.0 mEq/L [facility] Specimen Blood Performing Organization Address City/State/Zipcode Phone Number [facility] DEPARTMENT OF PATHOLOGY AND [address] [place] [address] GENOMIC MEDIC[address] [address] Hemoglobin, syringe (06/07/2018 9:42 AM TUBE COVERER) Hemoglobin, syringe 11.9 (L) 14.0 - 18.0 g/dL [facility] Specimen Blood Performing Organization Address City/[facility] Phone Number [facility] DEPARTMENT OF PATHOLOGY AND [address] [place] [address] [address] Glucose level, syringe (06/07/2018 9:42 AM TUBE COVERER) Glucose, syringe 97 65 - 99 mg/dL [facility] Specimen Blood Performing Organization Address City/[facility] Phone Number [facility] DEPARTMENT OF PATHOLOGY AND [address] [place] [phone] [address] ECG Pre/Post Op (05/31/2018 5:43 PM TUBE COVERER)Only the most recent of2 resultswithin the time period is included. Ventricular rate 59 [facility] Atrial rate 344 [facility] QRSD interval 108 [facility] QT interval 464 [facility] QTC interval 459 [facility] QRS axis 1 48 [facility] T wave axis 156 [facility] EKG impression Atrial flutter with variable AV block with premature ventricular or aberrantly conducted complexes-Incomplete left bundle branch block-ST & T wave abnormality, consider inferolateral ischemia-Abnorm [facility] MUSE al ECG- Narrative Performed At Performing Organization Address [facility] Phone Number [facility] MUSE [address] [place] [address] Estimated GFR (05/31/2018 5:30 PM TUBE COVERER) Estimated GFR 9 (A) mL/min/1.73 m2 [facility] Comment: HOSPITAL CatergoryUnitsInterpretation G1 >=90 Normal or high G2 60-89Mildly decreased [id number] to moderately decreased Z2e73-16Fkfgbvefou to severely decreased G4 15-29Severely decreased G5 <15Kidney failure The eGFR was calculated using the Chronic Kidney Disease Epidemiology Collaboration (CKD-EPI) equation. Interpretation is based on recommendations of the National Kidney Foundation-Kidney Disease Outcomes Quality Initiative (NKF-KDOQI) published in 2014. Specimen Plasma specimen Performing Organization Address City/State/Zipcode Phone Number [facility] DEPARTMENT OF PATHOLOGY AND [address] [place] [address] [address] CBC with platelet and differential (05/31/2018 5:30 PM TUBE COVERER)Only the most recent of11 resultswithin the time period is included. WBC 7.89 4.50 - 11.00 k/uL [facility] RBC 3.71 (L) 4.40 - 6.00 m/uL [facility] HGB 11.8 (L) 14.0 - 18.0 g/dL [facility] HCT 37.3 (L) 41.0 - 51.0 % [facility] MCV 100.5 (H) 82.0 - 100.0 fL [facility] MCH 31.8 27.0 - 34.0 pg [facility] MCHC 31.6 31.0 - 37.0 g/dL [facility] RDW - SD 52.6 37.0 - 55.0 fL [facility] MPV 12.3 8.8 - 13.2 fL [facility] Platelet count 127 (L) 150 - 400 k/uL [facility] Nucleated RBC 0.00 /100 WBC [facility] Neutrophils 63.1 39.0 - 69.0 % [facility] Lymphocytes 18.8 (L) 25.0 - 45.0 % [facility] Monocytes 11.7 (H) 0.0 - 10.0 % [facility] Eosinophils 4.9 0.0 - 5.0 % [facility] Basophils 0.6 0.0 - 1.0 % [facility] Immature granulocytes 0.9Comment: "Immature 0.0 - 1.0 % [facility] granulocytes" [facility] (promyelocytes, myelocytes, metamyelocytes) Specimen Blood Performing Organization Address City/State/Zipcode Phone Number [facility] DEPARTMENT OF PATHOLOGY AND [address] [place] [address] [place] [id number] [place] [address] Comprehensive metabolic panel (05/31/2018 5:30 PM TUBE COVERER)Only the most recent of3 resultswithin the time period is included. Sodium 141 135 - 148 mEq/L [facility] Potassium 3.9 3.5 - 5.0 mEq/L [facility] Chloride 96 (L) 98 - 112 mEq/L [facility] CO2 25 24 - 31 mEq/L [facility] Anion gap 20@ANIO (H) 7 - 15 mEq/L [facility] BUN 38 (H) 8 - 23 mg/dL [facility] Creatinine 5.88 (H) 0.70 - 1.20 mg/dL [facility] Glucose 89 65 - 99 mg/dL [facility] Calcium 9.8 8.8 - 10.2 mg/dL [facility] Protein 7.2 6.3 - 8.3 g/dL [facility] Comment: HOSPITAL 4.6-7.0 g/dL 1 week 4.4-7.6 g/dL 7 months-1year5.1-7.3 g/dL 1-2 years5.6-7.5 g/dL >3 years6.0-8.0 g/dL 18-150 6.3-8.3 g/dL Albumin 3.6 3.5 - 5.0 g/dL [facility] A/G ratio 1.0 0.7 - 3.8 [facility] Alkaline phosphatase 80 40 - 129 U/L [facility] AST 13 10 - 50 U/L [facility] ALT 13 5 - 50 U/L [facility] Total bilirubin 0.3 0.0 - 1.2 mg/dL [facility] Specimen Plasma specimen Performing Organization Address City/State/Zipcode Phone Number [facility] DEPARTMENT OF PATHOLOGY AND [address] [place] [phone] GENOMIC MEDICINE [address] [address] ECG 12 lead (12/19/2017 12:13 PM CDT)Only the most recent of8 resultswithin the time period is included. Ventricular rate 57 [facility] Atrial rate 312 [facility] QRSD interval 112 [facility] QT interval 468 [facility] QTC interval 455 [facility] QRS axis 1 5 [facility] T wave axis 160 [facility] EKG impression Atrial fibrillation with slow ventricular response-Inferior infarct (cited on or before 02-MAY-2017)-ST & T wave abnormality, consider lateral ischemia or digitalis effect-Abnormal ECG-In automated comparison with ECG of 18-DEC-2017 17:14,-T wave [facility] MUSE inversion more evident in Lateral leads- Performing Organization Address [facility] Phone Number [facility] MUSE [address] [place] [address] Estimated GFR (12/19/2017 4:00 AM CDT)Only the most recent of15 resultswithin the time period is included. GFR Non Af Amer 13 (A) mL/min/1.73 m2 [facility] DEPARTMENT OF PATHOLOGY AND GENOMIC MEDICINE GFR Af Amer 16 (A) mL/min/1.73 m2 [facility] DEPARTMENT OF Comment: PATHOLOGY AND GENOMIC [...] Americans. Specimen Plasma specimen Performing Organization Address City/[facility] Phone Number [facility] DEPARTMENT OF PATHOLOGY AND [address] [place] [address] [employer] MEDICINE Basic metabolic panel (12/19/2017 4:00 AM CDT)Only the most recent of13 resultswithin the time period is included. Sodium 137 135 - 148 mEq/L [facility] DEPARTMENT OF PATHOLOGY AND GENOMIC MEDICINE Potassium 4.0 3.5 - 5.0 mEq/L [facility] DEPARTMENT OF PATHOLOGY AND GENOMIC MEDICINE Chloride 97 (L) 98 - 112 mEq/L [facility] DEPARTMENT OF PATHOLOGY AND GENOMIC MEDICINE CO2 25 24 - 31 mEq/L [facility] DEPARTMENT OF PATHOLOGY AND GENOMIC MEDICINE Anion gap 15@ANIO 7 - 15 mEq/L [facility] DEPARTMENT OF PATHOLOGY AND GENOMIC MEDICINE BUN 24 (H) 8 - 23 mg/dL [facility] DEPARTMENT OF PATHOLOGY AND GENOMIC MEDICINE Creatinine 4.4 (H) 0.7 - 1.2 mg/dL [facility] DEPARTMENT OF PATHOLOGY AND GENOMIC MEDICINE Glucose 100 (H) 65 - 99 mg/dL [facility] DEPARTMENT OF PATHOLOGY AND GENOMIC MEDICINE Calcium 8.7 (L) 8.8 - 10.2 mg/dL [facility] DEPARTMENT OF PATHOLOGY AND GENOMIC MEDICINE Specimen Plasma specimen Performing Organization Address [facility] Phone Number [facility] DEPARTMENT OF PATHOLOGY AND [address] [place] [address] GENOMIC [facility] Prothrombin time with INR (12/16/2017 7:38 AM CDT)Only the most recent of8 resultswithin the time period is included. Prothrombin time 14.5 12.0 - 15.0 sec [facility] DEPARTMENT OF PATHOLOGY AND GENOMIC MEDICINE INR 1.1 [facility] DEPARTMENT OF Comment: PATHOLOGY AND GENOMIC The International Normalized Ratio (INR) is a therapeutic MEDICINE monitoring tool for patients who are stable on oral anticoagulant therapy. An INR of 2.0-3.0 is suggested for deep vein thrombosis/pulmonary embolism. Specimen Blood Performing Organization Address [facility] Phone Number [facility] DEPARTMENT OF PATHOLOGY AND [address] [place] [address] Magnesium level (12/16/2017 4:00 AM CDT)Only the most recent of8 resultswithin the time period is included. Magnesium 2.1 1.6 - 2.4 mg/dL [facility] DEPARTMENT OF PATHOLOGY AND GENOMIC MEDICINE Specimen Plasma specimen Performing Organization Address [facility] Phone Number [facility] DEPARTMENT OF PATHOLOGY AND [address] [place] [address] Ionized calcium (12/16/2017 4:00 AM CDT)Only the most recent of7 resultswithin the time period is included. pH 7.45 [facility] DEPARTMENT OF PATHOLOGY AND GENOMIC MEDICINE Ionized calcium 1.09 (L) 1.11 - 1.32 mmol/L [facility] DEPARTMENT OF PATHOLOGY AND GENOMIC MEDICINE Specimen Plasma specimen Performing Organization Address [facility] Phone Number [facility] DEPARTMENT OF PATHOLOGY AND [address] [place] [address] GENOMIC [facility] XR Chest 1 Vw Portable (12/15/2017 7:57 PM CDT)Only the most recent of6 resultswithin the time period is included. Narrative Performed At PROCEDURE:XR CHEST 1 VW PORTABLE [facility] CLINICAL HISTORY:RALES, l COMPARISON:December 12, 2017-December 06, [...] in the congestive cardiac failure from previous. [facility]-[id number] Procedure Note Interface, Radiology Results Incoming - [...] in the congestive cardiac failure from previous. [facility]-[id number] Performing Organization Address [facility]/Zipcode Phone Number [facility] [address] [place] [address] Cv lab analyst procedure (12/15/2017 2:05 PM CDT) Narrative Performed At Successful 3.0x28 mm Synergy FRANCESCO to mid LAD [facility] Performing Organization Address [facility] Phone Number [facility] [address] [place] [address] POC ACT (12/15/2017 1:31 PM CDT) Activated clotting time, POC 349 seconds Specimen Blood Activated clotting time (12/15/2017 12:38 PM CDT) Activated clotting time 349 (H) 96 - 152 sec [facility] DEPARTMENT OF Comment: PATHOLOGY AND GENOMIC Meter ID: [id number] MEDICINE [employer] Worker: Jimmy Sweet Performing Organization Address City/[facility]/Zipcode Phone Number [facility] DEPARTMENT OF PATHOLOGY AND [address] [place] [address] GENOMIC MEDICINE Anti Xa, unfractionated (12/15/2017 5:30 AM CDT)Only the most recent of16 resultswithin the time period is included. Anti Xa, unfractionated 0.68Comment: 0.30 - 0.70 U/mL [facility] DEPARTMENT OF Therapeutic Range: PATHOLOGY AND GENOMIC 0.30 - 0.70 U/mL MEDICINE Specimen Blood Performing Organization Address City/[facility] Phone Number [facility] DEPARTMENT OF PATHOLOGY AND [address] [place] [address] MEDICINE Manual differential (12/15/2017 4:00 AM CDT)Only the most recent of3 resultswithin the time period is included. Manual differential PERFORMED [facility] DEPARTMENT OF PATHOLOGY AND GENOMIC MEDICINE Neutrophils 74.0 (H) 39.0 - 69.0 % [facility] DEPARTMENT OF PATHOLOGY AND GENOMIC MEDICINE Lymphocytes 13.0 (L) 25.0 - 45.0 % [facility] DEPARTMENT OF PATHOLOGY AND GENOMIC MEDICINE Monocytes 9.0 0.0 - 10.0 % [facility] DEPARTMENT OF PATHOLOGY AND GENOMIC MEDICINE Eosinophils 1.0 0.0 - 5.0 % [facility] DEPARTMENT OF PATHOLOGY AND GENOMIC MEDICINE Basophils 1.0 0.0 - 1.0 % [facility] DEPARTMENT OF PATHOLOGY AND GENOMIC MEDICINE Metamyelocytes 1 % [facility] DEPARTMENT OF PATHOLOGY AND GENOMIC MEDICINE Myelocytes 1 % [facility] DEPARTMENT OF PATHOLOGY AND GENOMIC MEDICINE Promyelocytes 0 % [facility] DEPARTMENT OF PATHOLOGY AND GENOMIC MEDICINE Platelet slide review Decreased (A) [facility] DEPARTMENT OF PATHOLOGY AND GENOMIC MEDICINE Toxic granulation Slight [facility] DEPARTMENT OF PATHOLOGY AND GENOMIC MEDICINE Anisocytosis Moderate [facility] DEPARTMENT OF PATHOLOGY AND GENOMIC MEDICINE Polychromasia Moderate [facility] DEPARTMENT OF PATHOLOGY AND GENOMIC MEDICINE Ovalocytes Moderate [facility] DEPARTMENT OF PATHOLOGY AND GENOMIC MEDICINE Enlarged platelets Moderate (A) [facility] DEPARTMENT OF PATHOLOGY AND GENOMIC MEDICINE Performing Organization Address City/[facility] Phone Number [facility] DEPARTMENT OF PATHOLOGY AND [address] [place] [phone] [place] [address] Hepatitis B core antibody total (12/14/2017 3:09 PM CDT) Hepatitis B core total Ab Non-reactive Non-reactive [facility] DEPARTMENT OF PATHOLOGY AND GENOMIC MEDICINE Specimen Blood Performing Organization Address City/[facility] Phone Number [facility] DEPARTMENT OF PATHOLOGY AND [address] [place] [address] [facility] Hepatitis B surface antibody (12/14/2017 3:09 PM CDT) Hepatitis B surface Ab Non-reactive Non-reactive [facility] DEPARTMENT OF PATHOLOGY AND GENOMIC MEDICINE Specimen Blood Performing Organization Address City/[facility] Phone Number [facility] DEPARTMENT OF PATHOLOGY AND [address] [place] [address] GENOMIC MEDICINE Type and screen (12/14/2017 5:00 AM CDT)Only the most recent of2 resultswithin the time period is included. ABO grouping A [facility] DEPARTMENT OF PATHOLOGY AND GENOMIC MEDICINE Rh type POS [facility] DEPARTMENT OF PATHOLOGY AND GENOMIC MEDICINE Antibody screen (gel) NEG [facility] DEPARTMENT OF PATHOLOGY AND GENOMIC MEDICINE Specimen Blood Performing Organization Address City/[facility]/Zipcode Phone Number [facility] DEPARTMENT OF PATHOLOGY AND [address] [place] [address] Partial thromboplastin time, activated (12/13/2017 7:30 AM CDT)Only the most recent of4 resultswithin the time period is included. PTT SEE COMMENT 23.0 - 36.0 sec [facility] DEPARTMENT OF PATHOLOGY Comment: [facility] PTT therapeutic range for unfractionated heparin is 61.0-112.0 seconds which corresponds to Anti-Xa 0.3-0.7 U/ml. Footnote--------- Unable to perform testing, specimen is QUESTIONABLE INTEGRITY.Recollect requested for PT INR AND PTT (tests).FRANCO ATKINSON/Maggie (name/location) notified by PR1 (tech ID) at12/13/201708:49(date/time). Credit issued. Specimen Blood Performing Organization Address [facility] Phone Number [facility] DEPARTMENT OF PATHOLOGY AND [address] [place] [address] POC glucose (12/12/2017 9:40 PM CDT)Only the most recent of12 resultswithin the time period is included. POC glucose 115 (H) 65 - 99 mg/dL [facility] DEPARTMENT OF PATHOLOGY Comment: AND Companion [employer] Notified RN Meter ID: [id number] [employer] Worker: Arroyo Performing Organization Address City/[facility]/Zipcode Phone Number [facility] DEPARTMENT OF PATHOLOGY AND [address] [place] [address] Hepatitis B surface antigen (12/12/2017 8:07 PM CDT)Only the most recent of2 resultswithin the time period is included. Hepatitis B surface Ag Non-reactive Non-reactive [facility] DEPARTMENT OF PATHOLOGY AND GENOMIC MEDICINE Performing Organization Address City/[facility]/Zipcode Phone Number [facility] DEPARTMENT OF PATHOLOGY AND [address] [place] [address] [facility] Hepatitis B surface Ag confirmation (12/12/2017 3:36 PM CDT) Hepatitis B surface Ag SEE COMMENTComment: Non-reactive [facility] DEPARTMENT OF confirmation Footnote--------- PATHOLOGY AND GENOMIC MEDICINE Performing Organization Address City/[facility]/Zipcode Phone Number [facility] DEPARTMENT OF PATHOLOGY AND [address] [place] [address] [facility] IR Tunneled Dialysis Catheter Placement (12/12/2017 8:27 AM CDT) Narrative Performed At Procedure: Placement of tunneled dialysis catheter [facility] Clinical History: End-stage renal disease Sedation: Versed and fentanyl were utilized for monitored conscious sedation during the procedure. The patient was transferred to the recovery room at the end of the procedure for further monitoring. Zxys-xk-[id number] time 15 minutes Anesthesia: Local Radiation dose: [...] was brought through the tunnel. A 4 [place] catheter was placed over the initially placed [...] catheter Blood Loss: Less than 1 mL [facility]-[id number] Procedure Note Interface, Radiology Results Incoming - 12/12/2017 9:10 AM CDT Procedure: Placement of tunneled dialysis catheter Clinical History: End-stage renal disease Sedation: Versed and fentanyl were utilized for monitored conscious sedation during the procedure. The patient was transferred to the recovery room at the end of the procedure for further monitoring. Xyap-ez-[id number] time 15 minutes Anesthesia: Local Radiation dose: [...] was brought through the tunnel. A 4 [place] catheter was placed over the initially placed [...] catheter Blood Loss: Less than 1 mL [facility]-[id number] Performing Organization Address City/State/Zipcode Phone Number [facility] [address] [place] [address] CBC hemogram (12/12/2017 12:30 AM CDT)Only the most recent of3 resultswithin the time period is included. WBC 6.88 4.50 - 11.00 k/uL [facility] DEPARTMENT OF PATHOLOGY AND GENOMIC MEDICINE RBC 3.17 (L) 4.40 - 6.00 m/uL [facility] DEPARTMENT OF PATHOLOGY AND GENOMIC MEDICINE HGB 10.0 (L) 14.0 - 18.0 g/dL [facility] DEPARTMENT OF PATHOLOGY AND GENOMIC MEDICINE HCT 31.0 (L) 41.0 - 51.0 % [facility] DEPARTMENT OF PATHOLOGY AND GENOMIC MEDICINE MCV 97.8 82.0 - 100.0 fL [facility] DEPARTMENT OF PATHOLOGY AND GENOMIC MEDICINE MCH 31.5 27.0 - 34.0 pg [facility] DEPARTMENT OF PATHOLOGY AND GENOMIC MEDICINE MCHC 32.3 31.0 - 37.0 g/dL [facility] DEPARTMENT OF PATHOLOGY AND GENOMIC MEDICINE RDW - SD 52.5 37.0 - 55.0 fL [facility] DEPARTMENT OF PATHOLOGY AND GENOMIC MEDICINE MPV 13.5 (H) 8.8 - 13.2 fL [facility] DEPARTMENT OF PATHOLOGY AND GENOMIC MEDICINE Platelet count 69 (L) 150 - 400 k/uL [facility] DEPARTMENT OF PATHOLOGY AND GENOMIC MEDICINE Nucleated RBC 0.00 /100 WBC [facility] DEPARTMENT OF PATHOLOGY AND GENOMIC MEDICINE Specimen Blood Performing Organization Address City/State/Zipcode Phone Number [facility] DEPARTMENT OF PATHOLOGY AND [employer] [place] [address] [facility] Urinalysis, automated with microscopy (12/10/2017 5:51 PM CDT) Color, UA Yellow [facility] DEPARTMENT OF PATHOLOGY AND GENOMIC MEDICINE Appearance, UA Clear [facility] DEPARTMENT OF PATHOLOGY AND GENOMIC MEDICINE Specific gravity, UA 1.015 1.001 - 1.035 [facility] DEPARTMENT OF PATHOLOGY AND GENOMIC MEDICINE pH, UA 6.0 5.0 - 8.5 [facility] DEPARTMENT OF PATHOLOGY AND GENOMIC MEDICINE Protein, UA 3+ (A) Negative [facility] DEPARTMENT OF PATHOLOGY AND GENOMIC MEDICINE Glucose, UA 1+ (A) Negative [facility] DEPARTMENT OF PATHOLOGY AND GENOMIC MEDICINE Ketones, UA Negative Negative [facility] DEPARTMENT OF PATHOLOGY AND GENOMIC MEDICINE Bilirubin, UA Negative Negative [facility] DEPARTMENT OF PATHOLOGY AND GENOMIC MEDICINE Blood, UA Large (A) Negative [facility] DEPARTMENT OF PATHOLOGY AND GENOMIC MEDICINE Nitrite, UA Negative Negative [facility] DEPARTMENT OF PATHOLOGY AND GENOMIC MEDICINE Urobilinogen, UA <2.0 <2.0 [facility] DEPARTMENT OF PATHOLOGY AND GENOMIC MEDICINE Leukocyte esterase, UA Negative Negative [facility] DEPARTMENT OF PATHOLOGY AND GENOMIC MEDICINE WBC, UA 6 (H) 0 - 1 /HPF [facility] DEPARTMENT OF PATHOLOGY AND GENOMIC MEDICINE RBC, UA 122 (H) 0 - 5 /HPF [facility] DEPARTMENT OF PATHOLOGY AND GENOMIC MEDICINE Bacteria, UA Few None seen [facility] DEPARTMENT OF PATHOLOGY AND GENOMIC MEDICINE Amorphous crystals Few [facility] DEPARTMENT OF PATHOLOGY AND GENOMIC MEDICINE Hyaline casts, UA 4 /LPF [facility] DEPARTMENT OF PATHOLOGY AND GENOMIC MEDICINE Yeast, UA None seen [facility] DEPARTMENT OF PATHOLOGY AND GENOMIC MEDICINE Yeast with pseudohyphae, UA None seen [facility] DEPARTMENT OF PATHOLOGY AND GENOMIC MEDICINE Specimen Urine Performing Organization Address [facility] Phone Number [facility] DEPARTMENT OF PATHOLOGY AND [address] [place] [address] [facility] Phosphorus level (12/08/2017 4:00 AM CDT)Only the most recent of5 resultswithin the time period is included. Phosphorus 5.2 (H) 2.4 - 4.5 mg/dL [facility] DEPARTMENT OF PATHOLOGY AND GENOMIC MEDICINE Specimen Plasma specimen Performing Organization Address [facility]/Zipcode Phone Number [facility] DEPARTMENT OF PATHOLOGY AND [address] [place] [address] [facility] Cv lab analyst procedure (12/07/2017 5:56 PM CDT) Narrative Performed At LMCA: Normal caliber, no significant stenosis HM CUP[facility] LAD: Normal caliber, with 70% mid-LAD stenosis and patent proximal LAD stent LCX: Normal caliber, mild nonobstructive disease RCA: Normal caliber, with DATA MODELER of the mid RCA, collateralized from the LCA Given anatomic findings, clinical stability and 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 Performing Organization Address [facility] Phone Number [facility] [address] [place] [address] CT Abdomen Pelvis Wo Contrast (12/06/2017 10:00 [...] air. Prostatic enlargement and penile implant noted. [facility]-[id number] Procedure Note Hm Interface, Radiology Results Incoming [...] air. Prostatic enlargement and penile implant noted. [facility]-[id number] Performing Organization Address [facility] Hospitalcode Phone Number [facility] [address] [place] [phone] Lipase level (12/06/2017 3:02 PM CDT) Lipase 35 13 - 60 U/L [facility] DEPARTMENT OF PATHOLOGY AND GENOMIC MEDICINE Specimen Plasma specimen Performing Organization Address [facility] Phone Number [facility] DEPARTMENT OF PATHOLOGY AND [address] [place], [place] [phone] [facility] Amylase level (12/06/2017 3:02 PM CDT) Amylase 65 28 - 100 U/L [facility] DEPARTMENT OF PATHOLOGY AND GENOMIC MEDICINE Specimen Plasma specimen Performing Organization Address [facility] Phone Number [facility] DEPARTMENT OF PATHOLOGY AND [address] [place] [address] Troponin (12/06/2017 10:28 AM CDT)Only the most recent of4 resultswithin the time period is included. Troponin 0.33 (H) 0.00 - 0.30 ng/mL [facility] DEPARTMENT OF PATHOLOGY Comment: AND GENOMIC MEDICINE 0.30 - 1.49 ng/mlMay indicate increased risk of acute coronary syndrome. >=1.5 ng/mlConsistent with acute myocardial infarction. The diagnostic value of a single normal or non-diagnostic result is questionable.Serial samples at 2-6 hour intervals are required to rule out acute myocardial injury. Specimen Plasma specimen Performing Organization Address [facility] Hospitalcode Phone Number [facility] DEPARTMENT OF PATHOLOGY AND [address] [place] [address] [facility] Blood culture, aerobic & anaerobic (12/06/2017 7:56 AM CDT)Only the most recent of2 resultswithin the time period is included. Blood culture isolate No growth after 5 days of incubation. [facility] DEPARTMENT OF Comment: PATHOLOGY AND [employer] Specimen Information MEDICINE Specimen Source: Blood Specimen Site: Unspecified Specimen Blood Performing Organization Address [facility] Hospitalcode Phone Number [facility] DEPARTMENT OF PATHOLOGY AND [address] [place] [address] [facility] Arterial blood gas (12/06/2017 7:52 AM CDT)Only the most recent of3 resultswithin the time period is included. pH, arterial 7.35 7.35 - 7.45 [facility] DEPARTMENT OF PATHOLOGY AND GENOMIC MEDICINE pCO2, arterial 41 35 - 45 mmHg [facility] DEPARTMENT OF PATHOLOGY AND GENOMIC MEDICINE pO2, arterial 90 80 - 90 mmHg [facility] DEPARTMENT OF PATHOLOGY AND GENOMIC MEDICINE Bicarbonate, arterial 22.0 21.0 - 28.0 mmol/L [facility] DEPARTMENT OF PATHOLOGY AND GENOMIC MEDICINE Base excess, arterial -3 (L) -2 - 2 mEq/L [facility] DEPARTMENT OF PATHOLOGY AND GENOMIC MEDICINE O2 saturation, arterial 98 95 - 100 % [facility] DEPARTMENT OF PATHOLOGY AND GENOMIC MEDICINE Specimen Blood Performing Organization Address [facility] Phone Number [facility] DEPARTMENT OF PATHOLOGY AND [address] [place] [address] [facility] XR Abdomen 1 Vw Portable (12/06/2017 7:20 [...] stomach. Examination is otherwise unchanged since prior. [facility]-[id number] Procedure Note Hm Interface, Radiology Results Incoming - 12/06/2017 7:28 AM CDT EXAMINATION: XR ABDOMEN 1 VW PORTABLE INDICATION: DHT placemenmt COMPARISON: None IMPRESSION: No Dobbhoff tube is seen on this abdominal radiograph and may be within the chest. There is a partially imaged nasogastric tube with tip in the stomach. Examination is otherwise unchanged since prior. [facility]-[id number] Performing Organization Address City/State/Zipcode Phone Number [facility] [address] [place] [address] Mycoplasma pneumoniae by PCR (12/06/2017 6:00 AM CDT) Mycoplasma pneumoniae PCR Not-Detected Not-Detected [facility] DEPARTMENT OF PATHOLOGY AND GENOMIC MEDICINE Mycoplasma pneumoniae PCR See link below for [facility] DEPARTMENT OF PDF Lab PATHOLOGY AND GENOMIC ReportComment: Case MEDICINE Number: [id number] Performing Organization Address City/State/Zipcode Phone Number [facility] DEPARTMENT OF PATHOLOGY AND [address] [place] [address] GENOMIC MEDICINE Miscellaneous referral test (12/06/2017 5:50 AM CDT) [facility] [place] PNEUMOCYSTIS PCR PLEURAL [facility] test result SEE NOTE [facility] Comment: PNEUMOCYSTIS PCR SAMPLE: PLEURAL FLUID RESULTS: NEGATIVE REFERNECE: NA Test performed by: [facility] [address] [place], [place] Performing Organization Address City/State/Zipcode Phone Number [facility] [address] [place] [address] Thoracentesis (12/06/2017 5:39 AM CDT) Narrative Performed At Vic Tsang MD 12/06/20175:57 AM Thoracentesis Date/Time: 12/06/2017 5:39 AM Performed by: VIC TSANG Authorized by: VIC TSANG Consent: Consent obtained:Verbal Consent given by:Patient (and daughter, who is available at the bedside) Risks discussed:Bleeding, incomplete drainage, infection, nerve damage, pain and pneumothorax Alternatives discussed:Delayed treatment Artie protocol: Procedure explained and questions answered to [...] position:Supine Location:R midaxillary line Intercostal space:6th Puncture method:Smsocwp-gev-ktzttt catheter Ultrasound guidance: yes Indwelling catheter placed: [...] AM CDT) Fungus smear No fungi observed. [facility] DEPARTMENT OF PATHOLOGY AND Comment: GENOMIC MEDICINE Specimen Information Specimen Source: Pleural fluid Specimen Site: Not specified Specimen Pleural fluid - Not specified Performing Organization Address City/[facility] Phone Number [facility] DEPARTMENT OF PATHOLOGY AND [address] [place], [place] [phone] GENOMIC MEDICINE Body fluid consult (12/06/2017 5:25 AM CDT) Body fluid consult Done [facility] DEPARTMENT OF PATHOLOGY AND Comment: GENOMIC MEDICINE Negative for malignancy. Reviewed by Luc Hernández M.D. Specimen Fluid Performing Organization Address City/[facility] Phone Number [facility] DEPARTMENT OF PATHOLOGY AND [address] [place], [place] [phone] GENOMIC MEDICINE AFB culture (12/06/2017 5:25 AM CDT) AFB culture isolate No growth after 6 weeks of incubation. [facility] DEPARTMENT OF PATHOLOGY Comment: AND GENOMIC MEDICINE Specimen Information Specimen Source: Pleural fluid Specimen Site: Not specified Specimen Pleural fluid - Not specified Performing Organization Address City/[facility]code Phone Number [facility] DEPARTMENT OF PATHOLOGY AND [address] [place], [place] [phone] GENOMIC MEDICINE Rheumatoid factor, fluid (12/06/2017 5:25 AM CDT) Rheumatoid factor fluid Pleural fluid [facility] source Rheumatoid factor, body <10 IU/mL [facility] fluid Comment: INTERPRETIVE INFORMATION: Rheumatoid Factor, Body Fluid For information on body fluid reference ranges and/or interpretive guidance visit [email or web address] Test developed and characteristics determined by [facility]. See Compliance Statement B: [employer]/CS Performed by [facility], [address] [place] [address] [email or web address], Bry Hoover MD - Lab. Director Specimen Serum Performing Organization Address City/State/Zipcode Phone Number [facility] [address] [place] [address] Aerobic culture (12/06/2017 5:25 AM CDT) Aerobic culture isolate No growth after 3 days. [facility] DEPARTMENT OF Comment: PATHOLOGY AND GENOMIC Specimen Information MEDICINE Specimen Source: Pleural fluid Specimen Site: Not specified Specimen Pleural fluid - Not specified Performing Organization Address City/[facility] Phone Number [facility] DEPARTMENT OF PATHOLOGY AND [address] [place] [phone] GENOMIC MEDICINE Gram stain (12/06/2017 5:25 AM CDT)Only the most recent of2 resultswithin the time period is included. Gram stain isolate Many WBC's [facility] DEPARTMENT OF PATHOLOGY No organisms seen AND GENOMIC MEDICINE Comment: Specimen Information Specimen Source: Pleural fluid Specimen Site: Not specified Specimen Pleural fluid - Not specified Performing Organization Address City/[facility] Phone Number [facility] DEPARTMENT OF PATHOLOGY AND [address] [place] [address] GENOMIC MEDICINE AFB stain (12/06/2017 5:25 AM CDT) AFB stain No acid fast bacilli (AFB) seen. [facility] DEPARTMENT OF PATHOLOGY AND Comment: GENOMIC MEDICINE Specimen Information Specimen Source: Pleural fluid Specimen Site: Not specified Specimen Pleural fluid - Not specified Performing Organization Address City/State/Zipcode Phone Number [facility] DEPARTMENT OF PATHOLOGY AND [address] [place] [address] GENOMIC MEDICINE Fungus culture (12/06/2017 5:25 AM CDT) Fungus culture isolate No growth after 4 weeks of incubation. [facility] DEPARTMENT OF Comment: PATHOLOGY AND GENOMIC Specimen Information MEDICINE Specimen Source: Pleural fluid Specimen Site: Not specified Specimen Pleural fluid - Not specified Performing Organization Address City/State/Zipcode Phone Number [facility] DEPARTMENT OF PATHOLOGY AND [address] [place] [address] GENOMIC MEDICINE Anaerobic culture (12/06/2017 5:25 AM CDT) Anaerobic culture No anaerobic organisms isolated. [facility] DEPARTMENT OF isolate Comment: PATHOLOGY AND GENOMIC Specimen Information MEDICINE Specimen Source: Pleural fluid Specimen Site: Not specified Specimen Pleural fluid - Not specified Performing Organization Address City/[facility] Phone Number [facility] DEPARTMENT OF PATHOLOGY AND [address] [place] [phone] GENOMIC MEDICINE Cell count and differential, body fluid (12/06/2017 5:25 AM CDT) [facility] fluid type Pleural [facility] DEPARTMENT OF PATHOLOGY AND GENOMIC MEDICINE Color, fluid Yellow [facility] DEPARTMENT OF PATHOLOGY AND GENOMIC MEDICINE Appearance, fluid Slightly hazy [facility] DEPARTMENT OF PATHOLOGY AND GENOMIC MEDICINE RBC, fluid SEE COMMENTComment: 2+ /CMM [facility] DEPARTMENT OF (500 - 10,000 RBC/CMM) PATHOLOGY AND GENOMIC MEDICINE Nucleated cells, fluid 159 /CMM [facility] DEPARTMENT OF PATHOLOGY AND GENOMIC MEDICINE Fluid mononuclear cell See Diff [facility] DEPARTMENT OF PATHOLOGY AND GENOMIC MEDICINE Neutrophils, fluid 21 % [facility] DEPARTMENT OF PATHOLOGY AND GENOMIC MEDICINE Lymphocytes, fluid 34 % [facility] DEPARTMENT OF PATHOLOGY AND GENOMIC MEDICINE Eosinophils, fluid 1 % [facility] DEPARTMENT OF PATHOLOGY AND GENOMIC MEDICINE Mesothelial cells, fluid 2 % [facility] DEPARTMENT OF PATHOLOGY AND GENOMIC MEDICINE Macrophages, fluid 42 % [facility] DEPARTMENT OF PATHOLOGY AND GENOMIC MEDICINE Specimen Fluid Performing Organization Address City/[facility] Phone Number [facility] DEPARTMENT OF PATHOLOGY AND [address] [place] [address] GENOMIC MEDICINE Hematocrit, misc fluid (12/06/2017 5:25 AM CDT) Fluid type Pleural [facility] DEPARTMENT OF PATHOLOGY AND GENOMIC MEDICINE Hematocrit, fluid <0.1 % [facility] DEPARTMENT OF PATHOLOGY AND GENOMIC MEDICINE Specimen Fluid Performing Organization Address City/[facility] Phone Number [facility] DEPARTMENT OF PATHOLOGY AND [address] [place] [phone] GENOMIC MEDICINE Triglycerides, misc fluid (12/06/2017 5:25 AM CDT) Fluid type Pleural [facility] DEPARTMENT OF PATHOLOGY AND GENOMIC MEDICINE Triglyceride, fluid 11 mg/dL [facility] DEPARTMENT OF Comment: PATHOLOGY AND GENOMIC Analysis performed on Alize 8000 analyzer. This is not an MEDICINE approved methodology for this specimen type;accuracy and clinical significance uncertain. Specimen Fluid Performing Organization Address City/[facility]/Zipcode Phone Number [facility] DEPARTMENT OF PATHOLOGY AND [address] [place] [address] GENOMIC MEDICINE Protein, misc fluid (12/06/2017 5:25 AM CDT) Fluid type Pleural [facility] DEPARTMENT OF PATHOLOGY AND GENOMIC MEDICINE Protein, fluid 1.6 g/dL [facility] DEPARTMENT OF PATHOLOGY Comment: AND GENOMIC MEDICINE Analysis performed on Alize 8000 analyzer. This is not an approved methodology for this specimen type;accuracy and clinical significance uncertain. Specimen Fluid Performing Organization Address City/[facility] Phone Number [facility] DEPARTMENT OF PATHOLOGY AND [address] [place] [phone] GENOMIC MEDICINE LDH, misc fluid (12/06/2017 5:25 AM CDT) Fluid type Pleural [facility] DEPARTMENT OF PATHOLOGY AND GENOMIC MEDICINE LDH, fluid 74 U/L [facility] DEPARTMENT OF PATHOLOGY AND Comment: GENOMIC MEDICINE Analysis performed on Alize 8000 analyzer. This is not an approved methodology for this specimen type;accuracy and clinical significance uncertain. Specimen Fluid Performing Organization Address [facility] Phone Number [facility] DEPARTMENT OF PATHOLOGY AND [address] [place] [phone] GENOMIC MEDICINE Glucose level, misc fluid (12/06/2017 5:25 AM CDT) Fluid type Pleural [facility] DEPARTMENT OF PATHOLOGY AND GENOMIC MEDICINE Glucose, fluid 96 mg/dL [facility] DEPARTMENT OF PATHOLOGY Comment: AND GENOMIC MEDICINE Analysis performed on Alize 8000 analyzer. This is not an approved methodology for this specimen type;accuracy and clinical significance uncertain. Specimen Fluid Performing Organization Address [facility] Phone Number [facility] DEPARTMENT OF PATHOLOGY AND [address] [place] [address] GENOMIC MEDICINE Amylase level, misc fluid (12/06/2017 5:25 AM CDT) Fluid type Pleural [facility] DEPARTMENT OF PATHOLOGY AND GENOMIC MEDICINE Amylase, fluid 30 U/L [facility] DEPARTMENT OF PATHOLOGY Comment: AND GENOMIC MEDICINE Analysis performed on Alize 8000 analyzer. This is not an approved methodology for this specimen type;accuracy and clinical significance uncertain. Specimen Fluid Performing Organization Address City/[facility] Phone Number [facility] DEPARTMENT OF PATHOLOGY AND [address] [place] [phone] GENOMIC MEDICINE Albumin, misc fluid (12/06/2017 5:25 AM CDT) Fluid type Pleural [facility] DEPARTMENT OF PATHOLOGY AND GENOMIC MEDICINE Albumin, fluid 1.0 g/dL [facility] DEPARTMENT OF PATHOLOGY Comment: AND GENOMIC MEDICINE Analysis performed on Alize 8000 analyzer. This is not an approved methodology for this specimen type;accuracy and clinical significance uncertain. Specimen Fluid Performing Organization Address City/State/Zipcode Phone Number [facility] DEPARTMENT OF PATHOLOGY AND [address] [place] [address] GENOMIC MEDICINE pH, misc fluid (12/06/2017 5:25 AM CDT) Fluid type Pleural [facility] DEPARTMENT OF PATHOLOGY AND GENOMIC MEDICINE pH, fluid 8.00Comment: Reference ranges are [facility] DEPARTMENT OF PATHOLOGY AND not established for Miscellanous GENOMIC MEDICINE specimens. Specimen Fluid Performing Organization Address City/[facility] Phone Number [facility] DEPARTMENT OF PATHOLOGY AND [address] [place] [address] GENOMIC MEDICINE Creatinine level, misc fluid (12/06/2017 5:25 AM CDT) Fluid type Pleural [facility] DEPARTMENT OF PATHOLOGY AND GENOMIC MEDICINE Creatinine, fluid 4.6 mg/dL [facility] DEPARTMENT OF PATHOLOGY Comment: AND GENOMIC MEDICINE Analysis performed on Alize 8000 analyzer. This is not an approved methodology for this specimen type;accuracy and clinical significance uncertain. Specimen Fluid Performing Organization Address City/[facility] Phone Number [facility] DEPARTMENT OF PATHOLOGY AND [address] [place] [address] GENOMIC MEDICINE Total iron binding capacity (12/06/2017 2:27 AM CDT) Iron level 31 (L) 59 - 158 ug/dL [facility] DEPARTMENT OF PATHOLOGY AND GENOMIC MEDICINE Iron binding capacity 215 200 - 400 ug/dL [facility] DEPARTMENT OF PATHOLOGY AND GENOMIC MEDICINE % Saturation 14.4 (L) 20.0 - 40.0 % [facility] DEPARTMENT OF PATHOLOGY AND GENOMIC MEDICINE Specimen Plasma specimen Performing Organization Address City/[facility] Phone Number [facility] DEPARTMENT OF PATHOLOGY AND [address] [place] [address] GENOMIC MEDICINE Thyroid stimulating hormone (12/06/2017 2:27 AM CDT) TSH 1.69 0.27 - 4.20 uIU/mL [facility] DEPARTMENT OF PATHOLOGY AND GENOMIC MEDICINE Specimen Plasma specimen Performing Organization Address City/[facility] Phone Number [facility] DEPARTMENT OF PATHOLOGY AND [address] [place] [address] GENOMIC MEDICINE Ferritin level (12/06/2017 2:27 AM CDT) Ferritin level 180 30 - 400 ng/mL [facility] DEPARTMENT OF PATHOLOGY AND GENOMIC MEDICINE Specimen Plasma specimen Performing Organization Address [facility] Phone Number [facility] DEPARTMENT OF PATHOLOGY AND [address] [place] [address] Heparin PF4 antibody (IgG) (12/06/2017 2:00 AM CDT) Heparin PF4 Ab OD reading 0.067 0.000 - 0.399 [facility] DEPARTMENT OF PATHOLOGY AND GENOMIC MEDICINE Heparin PF4 Ab, IgG Negative Negative [facility] DEPARTMENT OF PATHOLOGY AND [facility] Specimen Blood Performing Organization Address [facility] Phone Number [facility] DEPARTMENT OF PATHOLOGY AND [address] [place] [address] Fibrinogen (12/06/2017 2:00 AM CDT) Fibrinogen 536 (H) 200 - 450 mg/dL [facility] DEPARTMENT OF PATHOLOGY AND [facility] MEDICINE Specimen Blood Performing Organization Address [facility] Phone Number [facility] DEPARTMENT OF PATHOLOGY AND [address] [place] [address] D-dimer (12/06/2017 2:00 AM CDT) D-dimer 2.11 (H) 0.00 - 0.40 ug/mL FEU [facility] DEPARTMENT OF Comment: PATHOLOGY AND GENOMIC [...] and malignancies. Specimen Blood Performing Organization Address [facility] Phone Number [facility] DEPARTMENT OF PATHOLOGY AND [address] [place] [address] Triglycerides (12/06/2017 2:00 AM CDT)Only the most recent of2 resultswithin the time period is included. Triglycerides 138 <150 mg/dL [facility] DEPARTMENT OF PATHOLOGY AND GENOMIC MEDICINE Specimen Plasma specimen Performing Organization Address City/[facility] Phone Number [facility] DEPARTMENT OF PATHOLOGY AND [address] [place] [address] Protein, total (12/06/2017 2:00 AM CDT)Only the most recent of2 resultswithin the time period is included. Protein 5.8 (L) 6.3 - 8.3 g/dL [facility] DEPARTMENT OF PATHOLOGY AND Comment: GENOMIC MEDICINE [place] 4.6-7.0 g/dL 1 week 4.4-7.6 g/dL 7 months-1year5.1-7.3 g/dL 1-2 years5.6-7.5 g/dL >3 years6.0-8.0 g/dL 18-150 6.3-8.3 g/dL Specimen Plasma specimen Performing Organization Address [facility] Phone Number [facility] DEPARTMENT OF PATHOLOGY AND [address] [place] [address] LDH (12/06/2017 2:00 AM CDT)Only the most recent of2 resultswithin the time period is included. LDH 257 (H) 87 - 225 U/L [facility] DEPARTMENT OF PATHOLOGY AND GENOMIC MEDICINE Specimen Plasma specimen Performing Organization Address [facility] Phone Number [facility] DEPARTMENT OF PATHOLOGY AND [address] [place] [address] Haptoglobin (12/06/2017 2:00 AM CDT)Only the most recent of2 resultswithin the time period is included. Haptoglobin 46 30 - 200 mg/dL [facility] DEPARTMENT OF PATHOLOGY AND GENOMIC MEDICINE Specimen Plasma specimen Performing Organization Address [facility] Phone Number [facility] DEPARTMENT OF PATHOLOGY AND [address] [place] [address] Folate level (12/06/2017 2:00 AM CDT)Only the most recent of2 resultswithin the time period is included. Folate 2.6 (L) 4.8 - 24.2 ng/mL [facility] DEPARTMENT OF PATHOLOGY AND GENOMIC MEDICINE Specimen Serum Performing Organization Address [facility] Phone Number [facility] DEPARTMENT OF PATHOLOGY AND [address] [place] [address] Vitamin B12 level (12/06/2017 2:00 AM CDT)Only the most recent of2 resultswithin the time period is included. Vitamin B12 314 211 - 946 pg/mL [facility] DEPARTMENT OF PATHOLOGY Comment: AND GENOMIC MEDICINE Significant overlap exists between normal and deficiency states. However, most patients with deficiencies will have Serum B12 <200 pg/mL. Specimen Serum Performing Organization Address City/[facility] Phone Number [facility] DEPARTMENT OF PATHOLOGY AND [address] [place] [address] Albumin level (12/06/2017 2:00 AM CDT) Albumin 2.7 (L) 3.5 - 5.0 g/dL [facility] DEPARTMENT OF PATHOLOGY AND [facility] Specimen Plasma specimen Performing Organization Address [facility] Phone Number [facility] DEPARTMENT OF PATHOLOGY AND [address] [place] [address] Lactic acid level (12/05/2017 11:18 PM CDT)Only the most recent of2 resultswithin the time period is included. Lactic acid 1.4 0.5 - 2.2 mmol/L [facility] DEPARTMENT OF PATHOLOGY AND GENOMIC MEDICINE Specimen Plasma specimen Performing Organization Address City/[facility] Phone Number [facility] DEPARTMENT OF PATHOLOGY AND [address] [place] [address] CT Chest Wo Contrast (12/05/2017 11:06 PM CDT) Narrative Performed At Examination:CT CHEST WO CONTRAST [facility] Clinical History: Acute resp [id number] years old, Pleural effusion Comparison: None. Findings: [...] dependent atelectasis versus infiltrate. 2. Mediastinal lymphadenopathy. [facility]-[id number] Procedure Note Interface, Radiology Results Incoming - [...] dependent atelectasis versus infiltrate. 2. Mediastinal lymphadenopathy. [facility]-[id number] Performing Organization Address City/State/Zipcode Phone Number [facility] [address] [place] [address] Pv duplex venous lower extremity (12/05/2017 6:13 PM CDT) Narrative Performed At [facility] Vascular Ultrasound Laboratory Lower Extremity Venous Report [address] [place] [address] Pat.Name:Jose CASTILLO.ID:[id number] .Date: 12/05/2017 Refer.MD:LOURDES AVINA MD Exam Time: 5:47:00 PMStudy Type:LE Venous Height:71inWeight: 233lb BSA: 2.25 m2 DOBAge:1945,72Y Sex: MALESonogrphr: aBiley Sebastian RVT Pat. Stat.:Inpatient Room:[place] [address] TapeVol: MARY, CPT - 4: 88036 Echo Event ID:[id number] Order ID:[id number] Reason for Study:LE swelling. History of cirrhosis, cardiomyopathy, COPD, hyperlipidemia, HTN, renal disorder, [place], PVD. Procedures:Colorflow, Grayscale/2D, Pulsed wave Doppler Race: [...] Ultrasound Laboratory Lower Extremity Venous Report [address] [place] [address] Pat.Name: JANNETTE CASTILLO Pat.ID: [id number] .Date: 12/05/2017 Refer.MD: LOURDES AVINA MD Exam Time: 5:47:00 PM Study Type:LE Venous Height: 71in Weight: 233lb BSA: 2.25 m2 Age: 2 1945,72Y Sex: MALE Sonogrphr: Bailey Sebastian RVT Pat. Stat.:Inpatient Room: [address] Vol: JJ, CPT - 4: 60299 Echo Event ID:[id number] Order ID: [id number] Reason for Study:LE swelling. History of cirrhosis, cardiomyopathy, COPD, hyperlipidemia, HTN, renal disorder, [place], PVD. Procedures:Colorflow, Grayscale/2D, Pulsed wave Doppler Race: [...] Performing Organization Address City/State/Zipcode Phone Number [facility] [address] [place] [address] Urinalysis screen and microscopy, with reflex to culture (12/05/2017 5:50 PM CDT) Specimen site Random void [facility] DEPARTMENT OF PATHOLOGY AND GENOMIC MEDICINE Color, UA Yellow [facility] DEPARTMENT OF PATHOLOGY AND GENOMIC MEDICINE Appearance, UA Cloudy [facility] DEPARTMENT OF PATHOLOGY AND GENOMIC MEDICINE Specific gravity, UA 1.014 1.001 - 1.035 [facility] DEPARTMENT OF PATHOLOGY AND GENOMIC MEDICINE pH, UA 5.0 5.0 - 8.5 [facility] DEPARTMENT OF PATHOLOGY AND GENOMIC MEDICINE Protein, UA 3+ (A) Negative [facility] DEPARTMENT OF PATHOLOGY AND GENOMIC MEDICINE Glucose, UA Negative Negative [facility] DEPARTMENT OF PATHOLOGY AND GENOMIC MEDICINE Ketones, UA Negative Negative [facility] DEPARTMENT OF PATHOLOGY AND GENOMIC MEDICINE Bilirubin, UA Negative Negative [facility] DEPARTMENT OF PATHOLOGY AND GENOMIC MEDICINE Blood, UA Large (A) Negative [facility] DEPARTMENT OF PATHOLOGY AND GENOMIC MEDICINE Nitrite, UA Negative Negative [facility] DEPARTMENT OF PATHOLOGY AND GENOMIC MEDICINE Urobilinogen, UA <2.0 <2.0 [facility] DEPARTMENT OF PATHOLOGY AND GENOMIC MEDICINE Leukocyte esterase, UA Small (A) Negative [facility] DEPARTMENT OF PATHOLOGY AND GENOMIC MEDICINE Epithelial cells, UA <1 /HPF [facility] DEPARTMENT OF PATHOLOGY AND GENOMIC MEDICINE WBC, UA 36 (H) 0 - 1 /HPF [facility] DEPARTMENT OF PATHOLOGY AND GENOMIC MEDICINE RBC, UA 70 (H) 0 - 5 /HPF [facility] DEPARTMENT OF PATHOLOGY AND GENOMIC MEDICINE Bacteria, UA Moderate (A) None seen [facility] DEPARTMENT OF PATHOLOGY AND GENOMIC MEDICINE WBC clumps, UA Few (A) [facility] DEPARTMENT OF PATHOLOGY AND GENOMIC MEDICINE Yeast, UA None seen [facility] DEPARTMENT OF PATHOLOGY AND GENOMIC MEDICINE Yeast with pseudohyphae, UA None seen [facility] DEPARTMENT OF PATHOLOGY AND GENOMIC MEDICINE Granular casts, UA 2 (H) 0 - 1 /LPF [facility] DEPARTMENT OF PATHOLOGY AND GENOMIC MEDICINE Hyaline casts, UA 2 /LPF [facility] DEPARTMENT OF PATHOLOGY AND GENOMIC MEDICINE Specimen Urine Performing Organization Address [facility] Phone Number [facility] DEPARTMENT OF PATHOLOGY AND [address] [place] [address] Urine culture (12/05/2017 5:50 PM CDT) Urine culture isolate Gram positive gustavo [facility] DEPARTMENT OF colony count undetermined, PATHOLOGY AND GENOMIC probably due to inhibiting substance. MEDICINE (A) Comment: Specimen Information Specimen Source: Urine Specimen Site: Random void Specimen Urine - Random void Performing Organization Address [facility] Phone Number [facility] DEPARTMENT OF PATHOLOGY AND [address] [place] [address] Urea nitrogen, urine, random (12/05/2017 5:26 PM CDT) Urea nitrogen, urine, random 525 mg/dL [facility] DEPARTMENT OF PATHOLOGY AND GENOMIC MEDICINE Specimen Urine Performing Organization Address [facility] Phone Number [facility] DEPARTMENT OF PATHOLOGY AND [address] [place] [address] Sodium level, urine, random (12/05/2017 5:26 PM CDT) Sodium, urine, random 50 mEq/L [facility] DEPARTMENT OF PATHOLOGY AND GENOMIC MEDICINE Specimen Urine Performing Organization Address [facility]/Zipcode Phone Number [facility] DEPARTMENT OF PATHOLOGY AND [address] MEDICINE Creatinine level, urine, random (12/05/2017 5:26 PM CDT) Creatinine, urine, random 161 mg/dL [facility] DEPARTMENT OF PATHOLOGY AND GENOMIC MEDICINE Specimen Urine Performing Organization Address [facility] Phone Number [facility] DEPARTMENT OF PATHOLOGY AND [address] [place] [address] Echocardiogram complete w contrast and 3D if needed (12/05/2017 4:42 PM CDT) Narrative Performed At [facility] Echocardiography Report [address] [facility] [address], [place] [address] Pat.Name:Jose CASTILLO.ID:[id number] .Date: 12/05/2017 Refer.MD:LOURDES AVINA MD Exam Time: 3:57:00 PMStudy Type:Routine Echo Height:71inWeight: 240lb BSA: 2.28 m2 DOBAge:1945,72Y Sex: MALEBP:120/68 HR:55 bpm Sonogrphr: Audra Conner MD; Dunia Lopez BS, RDCS Pat. Stat.:Inpatient Room:[facility] Study Status:Final Echo Event ID:[id number] Order ID:[id number] Reason for Study:Post Arrest History / Clinical:Chest [...] PA systolic pressure. MEASUREMENTS: 2D Parasternal [place] Ds5.7 cmLV%fs 20 % Ao Rtd 4.2 cmIndex1.8 cm/m IVSd 1.4 cm LVOT 2.4 cmLVPWd1.4 cm Ao An2.4 cm LV Kvip008 g(122-174) LVIDd6.2 cmIndex2.7 cm/m LVM Koskh054.1 g/m2 LVIDs5 cmRWT0.5 LV EF SinglePlane LV Ad 47.5 cm2(9.5-22.3) WIRIQ028 ml Index64.5 ml/m LKFJO261.5 ml (65-193) Index93.7 ml/m LV SV 66.5 [...] 12/05/2017 5:21 PM CDT Echocardiography Report [address] [place] [address] Pat.Name: JANNETTE CASTILLO Pat.ID: [id number] .Date: 12/05/2017 Refer.MD: LOURDES AVINA MD Exam Time: 3:57:00 PM Study Type:Routine Echo Height: 71in Weight: 240lb BSA: 2.28 m2 Age: 2 1945,72Y Sex: MALE BP: 120/68 HR: 55 bpm Sonogrphr: Audra Conner MD; PORFIRIO Hurtado, RDCS Pat. Stat.:Inpatient Room: [facility] Study Status:Final Echo Event ID:[id number] Order ID: [id number] Reason for Study:Post Arrest History / Clinical:Chest [...] PA systolic pressure. MEASUREMENTS: 2D Parasternal [place] Ds 5.7 cm LV%fs 20 % [...] PM Yonathan Bro M.D. Performing Organization Address [facility] Phone Number [facility] [address] [place] [address] Ionized calcium, arterial (12/05/2017 3:50 PM CDT) Ionized calcium, arterial 1.07 (L) 1.11 - 1.32 mmol/L [facility] DEPARTMENT OF PATHOLOGY AND GENOMIC MEDICINE Specimen Blood Performing Organization Address [facility] Phone Number [facility] DEPARTMENT OF PATHOLOGY AND [address] [place] [address] Slacker B natriuretic peptide (12/05/2017 3:50 PM CDT) BNP 1,034 (H) 0 - 100 pg/mL [facility] DEPARTMENT OF PATHOLOGY AND GENOMIC MEDICINE Performing Organization Address [facility]/Zipcode Phone Number [facility] DEPARTMENT OF PATHOLOGY AND [address] [place] [address] [facility] MEDICINE Creatine kinase, total (CPK) (12/05/2017 3:50 PM CDT) Creatine kinase 190 39 - 308 U/L [facility] DEPARTMENT OF PATHOLOGY AND GENOMIC MEDICINE Specimen Plasma specimen Performing Organization Address City/[facility] Phone Number [facility] DEPARTMENT OF PATHOLOGY AND [address] [place] [address] [facility] MEDICINE Hepatic function panel (12/05/2017 3:50 PM CDT) Albumin 2.6 (L) 3.5 - 5.0 g/dL [facility] DEPARTMENT OF PATHOLOGY AND GENOMIC MEDICINE Total bilirubin 0.5 0.0 - 1.2 mg/dL [facility] DEPARTMENT OF PATHOLOGY AND GENOMIC MEDICINE Bilirubin direct <0.2 0.0 - 0.3 mg/dL [facility] DEPARTMENT OF PATHOLOGY AND GENOMIC MEDICINE Alkaline phosphatase 70 40 - 129 U/L [facility] DEPARTMENT OF PATHOLOGY AND GENOMIC MEDICINE Protein 5.6 (L) 6.3 - 8.3 g/dL [facility] DEPARTMENT OF Comment: PATHOLOGY AND GENOMIC [place] 4.6-7.0 g/dL MEDICINE 1 week 4.4-7.6 g/dL 7 months-1year5.1-7.3 g/dL 1-2 years5.6-7.5 g/dL >3 years6.0-8.0 g/dL 18-150 6.3-8.3 g/dL ALT 17 5 - 50 U/L [facility] DEPARTMENT OF PATHOLOGY AND GENOMIC MEDICINE AST 21 10 - 50 U/L [facility] DEPARTMENT OF PATHOLOGY AND GENOMIC MEDICINE Specimen Plasma specimen Performing Organization Address [facility] Phone Number [facility] DEPARTMENT OF PATHOLOGY AND [address] [place] [address] GENOMIC MEDICINE Cytology (non-gynecological) request (12/05/2017 12:20 PM CDT) [facility] DEPARTMENT OF PATHOLOGY AND GENOMIC MEDICINE Cytology See link below for PDF [facility] DEPARTMENT OF (non-gynecological) report Lab Report PATHOLOGY AND GENOMIC MEDICINE Result status This is Final Report to [facility] DEPARTMENT OF [id number] PATHOLOGY AND GENOMIC MEDICINE Performing Organization Address City/[facility] Phone Number [facility] DEPARTMENT OF PATHOLOGY AND [address] [place] [address] GENOMIC MEDICINE Echocardiogram complete w contrast and 3D if needed (11/07/2017 11:59 AM CDT) Narrative Performed At [facility] Echocardiography Report Pat.Name:Jose CASTILLO.ID:[id number] .Date: 11/07/2017 Refer.MD:LOURDES AVINA MD Exam Time: 12:04:00 PM Study Type:Routine Echo Height:71inWeight: 240lb BSA: 2.28 m2 DOBAge:1945,72Y Sex: MALEBP:164/79 HR:65 bpmSonogrphr: Joselyn Albert RDCS, RVT Pat. Stat.:OutpatientRoom:[place] Study Status:Final Echo Event ID:[id number] Order ID:[id number] Reason for Study:SOB, suspected cardiac etiology, Systolic [...] PA systolic pressure. MEASUREMENTS: 2D Parasternal [place] LVOT 2.7 cmLA Ds5.4 cm LVIDd6.1 cmIndex2.7 cm/m Ao An2.8 cm LVIDs4.5 cmAo Rtd 3.4 cm Index1.5 cm/m LV%fs 26.8 % LV Kouu022.8 g(122-174) IVSd 1.5 cmRWT0.5 LVPWd1.5 cm LA [...] Results In - 11/07/2017 2:35 PM CDT [facility] Echocardi[facility] Report Pat.Name: JONATHAN JANNETTE Taylor.ID: [id number] .Date: 11/07/2017 Refer.MD: LOURDES AVINA MD Exam Time: 12:04:00 PM Study Type:Routine Echo Height: 71in Weight: 240lb BSA: 2.28 m2 Age: 2 1945,72Y Sex: MALE BP: 164/79 HR: 65 bpm Sonogrphr: Joselyn Albert RDCS, RVT Pat. Stat.:Outpatient Room: [place] Study Status:Final Echo Event ID:[id number] Order ID: [id number] Reason for Study:SOB, suspected cardiac etiology, Systolic [...] PA systolic pressure. MEASUREMENTS: 2D Parasternal [place] LVOT 2.7 cm LA Ds 5.4 cm [...] PM Damien Carroll MD Performing Organization Address City/State/Zipcode Phone Number [facility] [address] [place] [address] after 06/24/2017 Insurance Payer Benefit Plan / Group Subscriber ID Type Phone Address [employer] MEDICARE HU[employer]NA MEDICARE PPO/PFFS/[facility] xxxxxxxxx PPO Advance Directives Patient has advance care planning documents on file. For more information, please contact:[employer] [place] [address]
[2018-06-25 15:47] LABS: Absolute Lymphocytes (CBC) 0.3 K/uL (0.7-4.9); Absolute Monocytes 0.7 K/uL (0.1-1.3); Absolute Neutrophil 12.1 K/uL (1.8-8.0); Basophils % 0.2 % (0-1.3); Lymphocytes % 2.4 % (15.3-44.8); MPV 11.2 fL (7.6-11.3); Monocytes % 5.4 % (3.3-12.3); RBC Red Blood Cell Count 2.98 M/uL (4.33-5.43)
--- NOTE | 2018-06-25 16:03 | EKG ---
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
[2018-06-25 16:12] LABS: Potassium 3.3 mmol/L (3.5-5.1)
[2018-06-25 16:20] LABS: Platelet Estimate DECR
[2018-06-25 16:21] LABS: Anisocytosis 1+; Blood Morphology Comment NOT SEEN (NOT SEEN)
--- NOTE | 2018-06-25 16:24 | RAD REPORT ---
EXAM DESCRIPTION: Jarad Single View06/25/2018 4:12 pm CLINICAL HISTORY: Shortness of breath COMPARISON: 2017 FINDINGS: Mild bilateral pulmonary opacities. Left lateral base is hazy. The heart is mildly to mod erately enlarged A central venous line is in place IMPRESSION: Mild bilateral interstitial lung opacities probably represent interstitial pulmonary mary ma Left base is hazy which may be secondary to a small left pleural effusion, infiltrate or atelectasis
[2018-06-25] MEDS ORDERED: CEFEPIME 1 GM/100 ML BAG IV ONE (16:54)
--- NOTE | 2018-06-25 17:11 | EDPHYS ---
Physician Documentation [facility] Name: Romulo Rizzo Age: 72 yrs Sex: Male : 1945 Arrival Date: 06/25/2018 Time: 14:27 Bed 13 Private MD: ED Physician Jordon Khan HPI: 06/25 16:01 This 72 yrs old Male presents to ER via Ambulatory with complaints of snw Shortness Of Breath, Weakness. 16:01 The patient has shortness of breath at rest. Onset: The symptoms/episode began/occurred snw 3 day(s) ago. Duration: The symptoms are continuous. The patient's shortness of breath is aggravated by light activity. Associated signs and symptoms: Pertinent positives: non-productive cough, fever. Severity of symptoms: At their worst the symptoms were moderate. It is unknown whether or not the patient has had similar symptoms in the past. had Dialysis this am, finished. Sees Dr. Hyman. Historical: - Allergies: 14:58 No Known Allergies; aa5 - Home Meds: 15:42 apixaban oral 5 mg BID oral [Active]; clopidogrel 75 mg oral tab 1 tab once daily sv [Active]; hydralazine 100 mg Oral tab 1 tab 3 times per day [Active]; amlodipine 10 mg tab 1 tab once daily [Active]; atorvastatin 80 mg oral tab 1 tab once daily [Active]; carvedilol 6.25 mg oral tab 1 tab 2 times per day [Active]; Vitamin D3 1,000 unit oral cap daily [Active]; furosemide 40 mg Oral tab 1 tab 2 times per day [Active]; nitroglycerin 0.4 mg SL subl 1 tab every 5 minutes [Active]; isosorbide mononitrate 30 mg Oral Tb24 1 tab once daily [Active]; - PMHx: 14:58 CHF; Dialysis; Hypertension; Myocardial infarction; Renal Disease; aa5 15:42 CPR in 2018; sv - PSHx: 14:58 Heart stents; Appendectomy; Dialysis catheter to chest; Dialysis fistula to left arm; aa5 15:39 femoral stent; sv - Immunization history:: Adult Immunizations up to date. - Ebola Screening: : No symptoms or risks identified at this time. - Social history:: Smoking status: Patient/guardian denies using tobacco. ROS: 16:02 Eyes: Negative for injury, pain, redness, and discharge, ENT: Negative for injury, snw pain, and discharge, Neck: Negative for injury, pain, and swelling, Cardiovascular: Negative for chest pain, palpitations, and edema. 16:02 Constitutional: Negative for chills and weight loss, positive for cough, fever, and weakness since the weekend (3 days) Abdomen/GI: Negative for abdominal pain, nausea, vomiting, diarrhea, and constipation, Back: Negative for injury and pain, : Negative for injury, bleeding, discharge, and swelling, MS/Extremity: Negative for injury and deformity, Skin: Negative for injury, rash, and discoloration, Neuro: Negative for headache, weakness, numbness, tingling, and seizure, Psych: Negative for depression, anxiety, suicide ideation, homicidal ideation, and hallucinations. 16:02 Constitutional: Positive for fever, malaise. 16:02 Respiratory: Positive for cough, shortness of breath. Exam: 16:00 Head/Face: Normocephalic, atraumatic. Eyes: Pupils equal round and reactive to light, snw extra-ocular motions intact. Lids and lashes normal. Conjunctiva and sclera are non-icteric and not injected. Cornea within normal limits. Periorbital areas with no swelling, redness, or edema. ENT: Nares patent. No nasal discharge, no septal abnormalities noted. Tympanic membranes are normal and external auditory canals are clear. Oropharynx with no redness, swelling, or masses, exudates, or evidence of obstruction, uvula midline. Mucous membranes moist. Neck: Trachea midline, no thyromegaly or masses palpated, and no cervical lymphadenopathy. Supple, full range of motion without nuchal rigidity, or vertebral point tenderness. No Meningismus. Chest/axilla: Normal chest wall appearance and motion. Nontender with no deformity. No lesions are appreciated. 16:00 Abdomen/GI: Soft, non-tender, with normal bowel sounds. No distension or tympany. No guarding or rebound. No evidence of tenderness throughout. Back: No spinal tenderness. No costovertebral tenderness. Full range of motion. 16:00 MS/ Extremity: Pulses equal, no cyanosis. Neurovascular intact. Full, normal range of motion. Neuro: Awake and alert, GCS 15, oriented to person, place, time, and situation. Cranial nerves II-XII grossly intact. Motor strength 5/5 in all extremities. Sensory grossly intact. Cerebellar exam normal. Normal gait. Psych: Awake, alert, with orientation to person, place and time. Behavior, mood, and affect are within normal limits. 16:00 Constitutional: The patient appears alert, awake, febrile, uncomfortable. 16:00 Cardiovascular: Rate: normal, Rhythm: irregularly irregular, Heart sounds: normal, Edema: is not appreciated. 16:00 Respiratory: mild respiratory distress is noted, Respirations: accessory muscle usage, shallow respirations, tachypnea, Breath sounds: bronchial sounds, that are mild. 16:00 Skin: Appearance: normal except for affected area, Color: balbina, Temperature: warm, hot. Vital Signs: 14:57 BP 165 / 53; Pulse 96; Resp 18 S; Temp 100.2(O); Pulse Ox 91% on R/A; Weight 99.79 kg aa5 (R); Height 5 ft. 11 in. (180.34 cm) (R); Pain 0/10; 16:25 BP 142 / 87; Pulse 88; Resp 23; Pulse Ox 98% on 2 lpm NC; sv 18:02 Pulse 87 MON; Resp 22; Pulse Ox 99% on 2 lpm NC; sv 18:30 BP 116 / 49; Pulse 92; Resp 22; Pulse Ox 100% on 2 lpm NC; dh3 19:10 BP 104 / 67; Pulse 82; Resp 21; Temp 98.7; Pulse Ox 99% on 2 lpm NC; rr5 14:57 Body Mass Index 30.68 (99.79 kg, 180.34 cm) aa5 18:02 A fib sv MDM: 15:13 Patient medically screened. snw 16:51 Data reviewed: vital signs, nurses notes, lab test result(s), EKG, radiologic studies. snw Data interpreted: Pulse oximetry: on room air is 98 %. Interpretation: acceptable. Counseling: I had a detailed discussion with the patient and/or guardian regarding: the historical points, exam findings, and any diagnostic results supporting the discharge/admit diagnosis, the presence of at least one elevated blood pressure reading (>120/80) during this emergency department visit, lab results, radiology results, the need for further work-up and treatment in the hospital. Physician consultation: Margarita Johnson MD was called at 16:54, was contacted at 16:54, regarding admission, to the telemetry unit. 06/25 15:08 Order name: Flu; Complete Time: 16:34 snw 06/25 15:08 Order name: CBC with Diff; Complete Time: 16:25 snw 06/25 15:08 Order name: Chem 7; Complete Time: 16:18 snw 06/25 15:18 Order name: Blood Culture Adult (2) snw 06/25 15:18 Order name: Lactate; Complete Time: 16:18 snw 06/25 15:18 Order name: Procalcitonin; Complete Time: 16:34 snw 06/25 15:08 Order name: Chest Single View XRAY; Complete Time: 16:25 snw 06/25 15:08 Order name: EKG; Complete Time: 15:08 snw 06/25 15:08 Order name: EKG - Nurse/Tech; Complete Time: 15:46 snw 06/25 16:21 Order name: Manual Differential; Complete Time: 16:25 EDMS 06/25 17:33 Order name: Diet Renal; Complete Time: 17:33 06/25 20:02 Order name: Lactate Sepsis 2 HR Follow-up EDMS Administered Medications: 16:53 Drug: Cefepime 1 grams Route: IVPB; Rate: 200 ml/hr; Infused Over: 30 mins; Site: right sv antecubital; 17:30 Follow up: Response: No adverse reaction; IV Status: Completed infusion; IV Intake: sv 100ml Disposition: 06/25/18 17:10 Hospitalization ordered by Margarita Johnson for Inpatient Admission. Preliminary diagnosis are Fever presenting with conditions classified elsewhere, Pneumonia, unspecified organism. - Bed requested for Telemetry/MedSurg (Inpatient). - Status is Inpatient Admission. rr5 - Condition is Stable. - Problem is new. - Symptoms are unchanged. UTI on Admission? No Addendum: 06/27/2018 07:22 Co-signature as Attending Physician, Jordon Khan MD. r n Signatures: Dispatcher [employer] EDMS Macarena Grissom RN RN sv Woody, Diana, RN RN dw Therrien, Shelly, WET TRIMMER-C WET TRIMMER-Csnw Jordon Khan MD MD rn Calderon, Audri, RN RN aa5 April Alfred Raymond, RN RN rr5 Corrections: (The following items were deleted from the chart) 06/25 16:21 15:53 CBC Smear Scan ordered. EDMS EDMS 18:48 17:10 Hospitalization Ordered by Margarita Johnson MD for Inpatient Admission. Preliminary eb diagnosis is Fever presenting with conditions classified elsewhere; Pneumonia, unspecified organism. Bed requested for Telemetry/MedSurg (Inpatient). Status is Inpatient Admission. Condition is Stable. Problem is new. Symptoms are unchanged. UTI on Admission? No. snw 18:50 18:48 06/25/2018 17:10 Hospitalization Ordered by Margarita Johnson MD for Inpatient dw Admission. Preliminary diagnosis is Fever presenting with conditions classified elsewhere; Pneumonia, unspecified organism. Bed requested for Telemetry/MedSurg (Inpatient). Status is Inpatient Admission. Condition is Stable. Problem is new. Symptoms are unchanged. UTI on Admission? No. eb 20:25 18:50 06/25/2018 17:10 Hospitalization Ordered by Margarita Johnson MD for Inpatient rr5 Admission. Preliminary diagnosis is Fever presenting with conditions classified elsewhere; Pneumonia, unspecified organism. Bed requested for Telemetry/MedSurg (Inpatient). Status is Inpatient Admission. Condition is Stable. Problem is new. Symptoms are unchanged. UTI on Admission? No. dw
--- NOTE | 2018-06-25 17:11 | ER ---
Nurse's Notes [facility] Name: Romulo Rizzo Age: 72 yrs Sex: Male : 1945 Arrival Date: 06/25/2018 Time: 14:27 Bed 13 Private MD: Diagnosis: Fever presenting with conditions classified elsewhere;Pneumonia, unspecified organism Presentation: 06/25 14:56 Presenting complaint: Patient states: nausea, vomiting, and diarrhea since Monday. Pt aa5 also reports cough and SOB. Pt also reports generalized weakness. Transition of care: patient was not received from another setting of care. Onset of symptoms was June 2018. Risk Assessment: Do you want to hurt yourself or someone else? Patient reports no desire to harm self or others. Care prior to arrival: None. 14:56 Method Of Arrival: Ambulatory aa5 14:56 Acuity: ERMIAS 3 aa5 15:44 Initial Sepsis Screen: Does the patient meet any 2 criteria? RR > 20 per min. HR > 90 sv bpm. Yes Does the patient have a suspected source of infection? Yes: Productive cough/pneumonia. Historical: - Allergies: 14:58 No Known Allergies; aa5 - Home Meds: 15:42 apixaban oral 5 mg BID oral [Active]; clopidogrel 75 mg oral tab 1 tab once daily sv [Active]; hydralazine 100 mg Oral tab 1 tab 3 times per day [Active]; amlodipine 10 mg tab 1 tab once daily [Active]; atorvastatin 80 mg oral tab 1 tab once daily [Active]; carvedilol 6.25 mg oral tab 1 tab 2 times per day [Active]; Vitamin D3 1,000 unit oral cap daily [Active]; furosemide 40 mg Oral tab 1 tab 2 times per day [Active]; nitroglycerin 0.4 mg SL subl 1 tab every 5 minutes [Active]; isosorbide mononitrate 30 mg Oral Tb24 1 tab once daily [Active]; - PMHx: 14:58 CHF; Dialysis; Hypertension; Myocardial infarction; Renal Disease; aa5 15:42 CPR in 2018; sv - PSHx: 14:58 Heart stents; Appendectomy; Dialysis catheter to chest; Dialysis fistula to left arm; aa5 15:39 femoral stent; sv - Immunization history:: Adult Immunizations up to date. - Ebola Screening: : No symptoms or risks identified at this time. - Social history:: Smoking status: Patient/guardian denies using tobacco. Screenin:20 Abuse screen: Denies threats or abuse. Denies injuries from another. Nutritional sv screening: No deficits noted. Tuberculosis screening: No symptoms or risk factors identified. Fall Risk None identified. Assessment: 15:15 General: Appears in no apparent distress. uncomfortable, Behavior is calm, cooperative, sv appropriate for age. Pain: Denies pain. Neuro: Level of Consciousness is awake, alert, obeys commands, Oriented to person, place, time, situation, Moves all extremities. Full function Gait is steady, Speech is normal. Cardiovascular: Patient's skin is warm and dry. Edema is 1+ to left ankle and right ankle is 2+ to left foot and right foot pitting to left foot and right foot Rhythm is atrial fibrillation With PVC's. Cardiovascular: Dialysis shunt: in the fistula in right arm and shunt in right upper chest, with palpable thrill. Respiratory: Reports shortness of breath at rest on exertion cough that is productive, persistent Airway is patent Respiratory effort is even, with retractions, Respiratory pattern is symmetrical, tachypnea. Derm: Skin is normal. 16:20 Reassessment: Patient appears in no apparent distress at this time. No changes from sv previously documented assessment. Ok for pt to have ice chips. 17:37 Reassessment: Patient appears in no apparent distress at this time. No changes from sv previously documented assessment. 18:43 Reassessment: Patient appears in no apparent distress at this time. No changes from sv previously documented assessment. Patient and/or family updated on plan of care and expected duration. Pain level reassessed. Patient is alert, oriented x 3, equal unlabored respirations, skin warm/dry/pink. 19:10 General: Appears in no apparent distress. uncomfortable, Behavior is calm, cooperative, rr5 appropriate for age. 19:10 Pain: Denies pain. Neuro: Level of Consciousness is awake, alert, obeys commands, rr5 Oriented to person, place, time, situation, Moves all extremities. Full function. Cardiovascular: Capillary refill < 3 seconds Patient's skin is warm and dry. Edema pitting to left ankle, left foot, left forearm, left wrist, left hand, right ankle and right foot Dialysis shunt: in the left arm, with palpable thrill. Respiratory: Airway is patent Respiratory effort is even, with retractions, Respiratory pattern is symmetrical, tachypnea. GI: Abdomen is round. : No signs and/or symptoms were reported regarding the genitourinary system. EENT: No signs and/or symptoms were reported regarding the EENT system. Musculoskeletal: Capillary refill < 3 seconds. 19:10 Respiratory: mild bronchial sound. rr5 20:10 Reassessment: Patient appears in no apparent distress at this time. No changes from rr5 previously documented assessment. Patient and/or family updated on plan of care and expected duration. Pain level reassessed. no complaints made. vitally stable. Vital Signs: 14:57 BP 165 / 53; Pulse 96; Resp 18 S; Temp 100.2(O); Pulse Ox 91% on R/A; Weight 99.79 kg aa5 (R); Height 5 ft. 11 in. (180.34 cm) (R); Pain 0/10; 16:25 BP 142 / 87; Pulse 88; Resp 23; Pulse Ox 98% on 2 lpm NC; sv 18:02 Pulse 87 MON; Resp 22; Pulse Ox 99% on 2 lpm NC; sv 18:30 BP 116 / 49; Pulse 92; Resp 22; Pulse Ox 100% on 2 lpm NC; dh3 19:10 BP 104 / 67; Pulse 82; Resp 21; Temp 98.7; Pulse Ox 99% on 2 lpm NC; rr5 14:57 Body Mass Index 30.68 (99.79 kg, 180.34 cm) aa5 18:02 A fib sv ED Course: 14:27 Patient arrived in ED. as 14:56 Arm band placed on. aa5 14:57 Triage completed. aa5 15:06 [facility] snw 15:06 Jordon Khan MD is Attending Physician. snw 15:07 Macarena Grissom RN is Primary Nurse. sv 15:20 Patient has correct armband on for positive identification. Placed in gown. Bed in low sv position. Call light in reach. Adult w/ patient. monitoring coordinator on. Pulse ox on. NIBP on. Door closed. Head of bed elevated. 15:20 Initial lab(s) drawn, by me, sent to lab. First set of blood cultures drawn by me. sv Inserted saline lock: 20 gauge in right antecubital area, using aseptic technique. Blood collected. Flushed right antecubital with 5 ml normal saline. 15:35 Second set of blood cultures drawn by co, Flu and/or RSV swab sent to lab. sv 15:45 EKG done, by nursing tech. reviewed by Nona UMANA. dt2 16:13 Chest Single View XRAY In Process Unspecified. EDMS 16:21 Manual Differential Sent. sv 17:09 Margarita Johnson MD is Hospitalizing Provider. snw 17:48 Awaiting bed assignment. sv 18:43 Awaiting bed assignment. sv 19:04 Primary Nurse role handed off by Macarena Grissom RN sv 19:04 Report given to Arik CIFUENTES. sv 19:20 Arik Castaneda, ESAU is Primary Nurse. rr5 20:22 No provider procedures requiring assistance completed. Patient admitted, IV remains in rr5 place. intact, No redness/swelling at site. Administered Medications: 16:53 Drug: Cefepime 1 grams Route: IVPB; Rate: 200 ml/hr; Infused Over: 30 mins; Site: right sv antecubital; 17:30 Follow up: Response: No adverse reaction; IV Status: Completed infusion; IV Intake: sv 100ml Intake: 17:30 IV: 100ml; Total: 100ml. sv Outcome: 17:10 Decision to Hospitalize by Provider. snw 20:10 Admitted to Med/surg accompanied by tech, via wheelchair, with oxygen, Report called to rr5 rj 20:10 Condition: stable rr5 20:10 Instructed on the need for admit. 20:25 Patient left the ED. rr5 Signatures: Dispatcher [employer] EDMS Macarena Grissom, RN RN Nona Gauthier FNP-C FNP-[place] Bassett Audri RN RN 5 Nani Yu [facility] Trisha Bland 2 Arik Castaneda, RN RN rr5 Corrections: (The following items were deleted from the chart) 14:58 14:56 Presenting complaint: Patient states: nausea, vomiting, and diarrhea since aa5 Monday. Pt also reports cough and SOB. aa5 16:21 16:13 CBC Smear Scan drawn and sent. sv EDMS 20:24 20:23 Respiratory: rr5 rr5
[2018-06-25] MEDS ORDERED: ACETAMINOPHEN 500 MG TAB PO PRN (21:14)
[2018-06-25] MEDS ORDERED: CEFEPIME 1 GM/VIAL IV SCH (21:14)
--- NOTE | 2018-06-25 21:47 | P.HP ---
Certification for Inpatient Patient admitted to: Inpatient With expected LOS: >2 Midnights Practitioner: I am a practitioner with admitting privileges, knowledge of patient current condition, hospital course, and medical plan of care. Services: Services provided to patient in accordance with Admission requirements found in Title 42 Section 412.3 of the Code of Federal Regulations Patient History Date of Service: 06/25/18 Reason for admission: sepsis History of Present Illness: Mr Rizzo is a 72 years old male with history of HTN, CAD, ESRD on HD who start about 3 days ago with progressive SOB associated with productive cough with thick creamy secretions, fever and generalized weakness. He denied chest pain. He has also had nausea and vomiting. In ER he was febrile 100.2 F, lab work remarkable for leukocytosis with bandemia, elevated lactate and procalcitonin. CXR shows bilateral opacities consistent with pneumonia. O2 sat 91% on RA. Allergies NKDA Allergy (Uncoded 06/02/16 15:57) Unknown Home medications list reviewed: Yes Home Medications: Amlodipine [Norvasc] 10 mg PO DAILY WITH BREAKFAST 06/02/16 Aspirin [Aspirin EC 81 MG] 81 mg PO DAILY 06/02/16 Atorvastatin Calcium [Lipitor] 80 mg PO BEDTIME 06/02/16 Calcitriol [Rocaltrol] 0.25 mcg PO EVERY 3RD DAY 06/02/16 Carvedilol [Coreg] 6.25 mg PO BID 06/02/16 Cholecalciferol (Vitamin D3) [Vitamin D3] 1,000 unit PO DAILY 06/02/16 Ferrous Sulfate [Iron] 325 mg PO DAILY 06/02/16 Furosemide [Lasix] 40 mg PO DAILY 06/02/16 Nitroglycerin [Nitrostat] 0.4 mg SL PRN PRN 06/02/16 Pantoprazole [Protonix Tab] 40 mg PO DAILY 06/02/16 Codeine/APAP [Tylenol W/Codeine #3 tab] 1 tab PO Q4HP PRN #30 tab 06/03/16 Sulfamethoxazole/Trimethoprim [Bactrim Ds Tablet] 1 each PO BID #14 tablet 06/03 - Past Medical/Surgical History -: ESRD on HD -: CAD -: HTN -: CHF -: appendectomy -: Dialysis catheter -: coronary stent placement -: femoral stent placement - Family History Family History: Reviewed- Non-Contributory - Social History Smoking Status: Current every day smoker Counseled patient to stop smoking for: less than 10 minutes Alcohol use: No CD- Drugs: No Place of Residence: Home Review of Systems 10-point ROS is otherwise unremarkable Physical Examination - Physical Exam General: Alert, In no apparent distress HEENT: Atraumatic, PERRLA, Mucous membr. moist/pink, EOMI, Sclerae nonicteric Neck: Supple, 2+ carotid pulse no bruit, No LAD, Without JVD or thyroid abnormality Respiratory: Crackles/rales (bibasilar crackles) Cardiovascular: Normal S1 S2, Irregular heart rate/rhythm Gastrointestinal: Normal bowel sounds, No tenderness Musculoskeletal: No tenderness Integumentary: No rashes Neurological: Normal speech, Normal strength at 5/5 x4 extr, Normal tone, Normal affect Lymphatics: No axilla or inguinal lymphadenopathy - Studies Laboratory Data (last 24 hrs) 06/25/18 15:20: Sodium 137, Potassium 3.3 L, BUN 35 H, Creatinine 5.37 H*, Glucose 116 H 06/25/18 15:20: WBC 13.2 H, Hgb 9.4 L, Hct 28.0 L, Plt Count 85 L Microbiology Data (last 24 hrs): 06/25/18 15:35 Nasopharnyx Influenza Type A Antigen Screen - Final 06/25/18 15:35 Nasopharnyx Influenza Type B Antigen Screen - Final Assessment and Plan - Problems (Diagnosis) (1) Sepsis Current Visit: Yes Status: Acute Qualifiers: Sepsis type: sepsis due to unspecified organism Qualified Code(s): A41.9 - Sepsis, unspecified organism (2) Pneumonia Current Visit: Yes Status: Acute Qualifiers: Pneumonia type: due to unspecified organism Laterality: bilateral Lung location: lower lobe of lung Qualified Code(s): J18.1 - Lobar pneumonia, unspecified organism (3) Chronic a-fib Current Visit: Yes Status: Acute (4) HTN (hypertension) Current Visit: Yes Status: Acute Qualifiers: Hypertension type: essential hypertension Qualified Code(s): I10 - Essential (primary) hypertension (5) ESRD on hemodialysis Current Visit: Yes Status: Acute - Plan The patient will be admitted to the hospital due to sepsis secondary to pneumonia. He has been started on broad spectrum IV antibiotics. Will consult [employer] to continue HD while is in the hospital. Blood culture in process. The patient is hemodynamically stable. - Advance Directives Does patient have a Living Will: No Does patient have a Durable POA for Healthcare: No - Code Status/Comfort Care Code Status Assessed: Yes Code Status: Full Code
[2018-06-25] MEDS ORDERED: POTASSIUM CL SA 10 MEQ TAB PO ONE (22:35)
[2018-06-26 06:03] LABS: Absolute Lymphocytes (CBC) 0.4 K/uL (0.7-4.9); Absolute Monocytes 0.7 K/uL (0.1-1.3); Basophils % 0.2 % (0-1.3); Eosinophils % 0.1 % (0-4.4); Hematocrit 23.7 % (39.6-49.0); Lymphocytes % 4.1 % (15.3-44.8); MPV 10.8 fL (7.6-11.3); Monocytes % 7.1 % (3.3-12.3)
[2018-06-26 06:26] LABS: Albumin 2.6 g/dL (3.4-5.0); Bilirubin Total 0.9 mg/dL (0.2-1.0); Magnesium 1.9 mg/dL (1.8-2.4); Phosphorus 5.8 mg/dL (2.5-4.9); Potassium 3.6 mmol/L (3.5-5.1); Protein, Total 6.2 g/dL (6.4-8.2)
[2018-06-26 06:58] LABS: Anisocytosis 1+; Blood Morphology Comment NOTED (NOT SEEN); Dohle Bodies PRESENT; Platelet Estimate DECR
[2018-06-26] MEDS ORDERED: ENOXAPARIN 40 MG/0.4 ML SQ SCH (09:00)
[2018-06-26] MEDS: APIXABAN 5 MG TABLET PO SCH ×2 (10:14→22:10)
[2018-06-26] MEDS: HYDRALAZINE HCL 25 MG TABLET PO SCH ×2 (14:11→22:10)
[2018-06-26] MEDS: TAMSULOSIN 0.4 MG SR CAP PO SCH (18:03)
[2018-06-26] MEDS: FUROSEMIDE 40 MG TABLET PO SCH (18:04)
--- NOTE | 2018-06-26 20:07 | CON ---
Date of Consultation: 06/26/2018 NEPHROLOGY CONSULTATION Consulting Physician: Dr. Arpan Murray. Reason For Consultation: Elevated BUN and creatinine, end-stage renal disease and fluid management. History Of Present Illness: This is a pleasant 72-year-old gentleman, well known to me from the dial ysis with significant past medical history of coronary artery disease status post PA, hypertension, c ongestive heart failure, end-stage renal disease, recently started on dialysis back in December 2017 thro ugh right IJ PermCath. The patient came to the hospital complaining from cough with yellowish sputum and fever. The patient had dialysis yesterday, tolerated the dialysis very well. On presentation t o the ER was hypoxemic. Past Medical History: Includes, 1.Hypertension. 2.Coronary artery disease, status post PA complicated with congestive heart failure. 3.Hyperlipidemia. 4.End-stage renal disease, on hemodialysis Monday, Monday, and Monday. Past Surgical History: Includes, 1.PermCath placement. 2.Appendectomy. 3.PTCA. 4.PAD stenting. Family History: Positive for hypertension. Social History: Active smoker. Denies alcohol. Denies drug abuse. Review of Systems: Head and Neck: No red eye. No ear pain. GI: No nausea, no vomiting. : No polyuria, no dysuria, no hematuria. SENIOR ARCHITECT: Not applicable. Respiratory: Has shortness of breath, has cough. Cardiovascular: No chest pain. Endocrine: No polydipsia. Skin: No rash. Neuro: Has neuropathy. Musculoskeletal: No joint pain. Home Medications: Include, 1.Norvasc 10 mg. 2.Aspirin. 3.Atorvastatin. 4.Calcitriol. 5.Carvedilol 6.25 b.i.d. 6.Lasix. 7.Nitroglycerin. 8.Codeine. 9.Bactrim. Physical Examination: Vital Signs: When I saw the patient blood pressure 147/66, pulse of 79, afebrile. Chest: Crackles, more prominent right base. Heart: S1 and S2. Systolic murmur. Abdomen: Soft, nontender. Extremity: Trace edema. Neurological: Alert and oriented x3. No focal. Laboratory Data: WBC 10.2, H and H of 8 and 23.7, platelets of 65. Sodium 135, potassium 3.6, bicar b 32, BUN 48, creatinine 6.5, calcium 8.4, phosphorus 5.8. Chest x-ray, cardiomegaly with congestion . Assessment And Plan: 1.End-stage renal disease with over-volume status. I am going to go ahead and do sequential of dial ysis today and we will monitor the patient. 2.Hypertension. We will utilize the blood pressure for more ultrafiltration. 3.Secondary hyperparathyroidism, keep holding calcitriol. 4.Pneumonia, chronic obstructive pulmonary disease exacerbation as by primary. 5.Coronary artery disease and congestive heart failure. We will try to establish better volume cont rol with ultrafiltration. BRYN/MERLY Voice ID: [id number] Report ID: [id number]
--- NOTE | 2018-06-26 20:13 | PN ---
Date of Progress Note: 06/26/2018 Subjective: Patient is seen and examined. Chart reviewed and case discussed with RN. The patient s till having some cough with sputum production, otherwise states his breathing is better. Code Status: Full. Medications: List reviewed. Physical Examination: Vital Signs: Temperature 97.4, heart rate 63, blood pressure 165/73, respirations 18, O2 of 97% on r oom air. General: Awake, alert, oriented x3. Elderly male, obese. CV: S1, S2. Irregularly irregular. Peripheral pulses are present. Respiratory: Diminished breath sounds. No wheezing or stridor. Gastrointestinal: Abdomen is soft, nontender, nondistended. Positive bowel sounds. Extremities: No clubbing, cyanosis, or edema. Neuro: Nonfocal. Cranial nerves 2 through 12 intact grossly. Speech is normal. Laboratory Data: Sodium 135, potassium 3.6, chloride 99, CO2 of 23, BUN 48, creatinine 6.55, glucose 100, calcium 8.3, phosphorus 5.8, magnesium 1.9, albumin 2.6. WBC 10.2, hemoglobin 8 and hematocrit 23.7, platelets 65, neutrophils 88%, bands 8. Blood cultures pending. Influenza screen negative. Assessment: A 72-year-old male with. 1.Sepsis secondary to pneumonia, improving. White count has normalized. The patient had elevated p rocalcitonin level. We will follow up on the blood cultures and sputum culture. Continue antibiotic s. 2.Pneumonia, bilateral lower lobe. Continue IV antibiotics. Follow up on cultures. 3.Chronic atrial fibrillation. We will continue apixaban and continue monitor heart rate. Resume h ome medications as appropriate. 4.Essential hypertension, stable. 5.Obesity, BMI 30. 6.End-stage renal disease, on hemodialysis. Appreciate Nephrology input. We will continue dialysis as scheduled. 7.Benign prostatic hypertrophy, continue tamsulosin. 8.Gastrointestinal and deep venous thrombosis prophylaxis, addressed. Plan: As above. We will likely discharge in the next 24-48 hours depending on clinical response. /MERLY Voice ID: [id number] Report ID: [id number]
[2018-06-26] MEDS ORDERED: POTASSIUM CL SA 10 MEQ TAB PO ONE (21:00)
[2018-06-26] MEDS: CEFEPIME 0.5 GM in NA CHLORIDE 0.9% 50 ML IV SCH (22:08)
[2018-06-26] MEDS: ATORVASTATIN 80 MG TAB PO SCH (22:09)
[2018-06-26] MEDS: CARVEDILOL 6.25 MG TAB PO SCH (22:09)
[2018-06-27 06:17] LABS: Absolute Lymphocytes (CBC) 0.5 K/uL (0.7-4.9); Absolute Monocytes 0.6 K/uL (0.1-1.3); Absolute Neutrophil 4.7 K/uL (1.8-8.0); Basophils % 0.4 % (0-1.3); Eosinophils % 1.4 % (0-4.4); Hematocrit 23.2 % (39.6-49.0); MPV 11.3 fL (7.6-11.3); RBC Red Blood Cell Count 2.44 M/uL (4.33-5.43)
[2018-06-27 06:28] LABS: Albumin 2.4 g/dL (3.4-5.0); Bilirubin Total 0.8 mg/dL (0.2-1.0); Potassium 3.7 mmol/L (3.5-5.1)
[2018-06-27 07:28] LABS: Blood Morphology Comment NOT SEEN (NOT SEEN); Platelet Estimate DECR; Platelets, Giant PRESENT; Urine White Blood Cell Casts OK
[2018-06-27] MEDS: TAMSULOSIN 0.4 MG SR CAP PO SCH (08:43)
[2018-06-27] MEDS: APIXABAN 5 MG TABLET PO SCH ×2 (08:43→21:03)
[2018-06-27] MEDS: ISOSORBIDE MONO SR 30 MG TAB PO SCH (08:43)
[2018-06-27] MEDS: CLOPIDOGREL 75 MG TABLET PO SCH (08:43)
[2018-06-27] MEDS: FUROSEMIDE 40 MG TABLET PO SCH ×2 (08:46→17:09)
[2018-06-27] MEDS: AMLODIPINE 10 MG TAB PO SCH (08:47)
[2018-06-27] MEDS: HYDRALAZINE HCL 25 MG TABLET PO SCH ×3 (08:47→21:03)
[2018-06-27] MEDS: CARVEDILOL 6.25 MG TAB PO SCH ×2 (08:48→21:04)
[2018-06-27] MEDS ORDERED: EPOETIN ALFA 10,000 UNIT/ML VIAL IV SCH (11:30)
[2018-06-27] MEDS ORDERED: VANCOMYCIN/NS 1 gm 1 GM/250 ML BAG IVPB SCH (14:00)
--- NOTE | 2018-06-27 17:56 | PN ---
Date of Progress Note: 06/27/2018 Subjective: The patient is seen and examined. Chart reviewed and case discussed with RN and Dr. Carbone. The patient is overall doing better. States his cough is significantly improved, however, still having some shortness of breath. Medications: List reviewed. Physical Examination: Vital Signs: Temperature 98.2, heart rate 65, blood pressure 133/62, respirations 18, O2 of 97% on room air. General: Awake, alert, oriented x3. An elderly male, somewhat ill-appearing, obese. CV: S1, S2. Irregularly irregular. Peripheral pulses present. Respiratory: Diminished breath sounds. No wheezing. Gastrointestinal: Abdomen is soft, nontender, nondistended. Positive bowel sounds. Extremities: No clubbing or cyanosis. The patient does have trace pedal edema. Neuro: Cranial nerves 2 through 12 intact grossly. No focal neurological deficit. Laboratory Data: WBC 5.9, H and H 7.8 and 23.2, MCV 94.9, platelets 71, neutrophils 80%. Sodium 137, potassium 3.7, chloride 101, CO2 is 26, BUN 32, creatinine 4.83, glucose 92, calcium 8.4, albumin 2.4. Blood cultures show gram -positive cocci in pairs and chains, [id number] strep 4 out of 4 bottles. Assessment: A 72-year-old male with: 1. Sepsis secondary to pneumonia. White count normalized. The patient's blood pressure is improved, however, with dialysis did have low blood pressure in the 90s systolic. Blood cultures growing non-hemolytic beta strep 4 out of 4 bottles. We will follow up on ID and sensitivity. Continue antibiotics. The patient is on the cefepime. We will add vancomycin for gram-positive coverage. 2. Pneumonia, bilateral lower lobe. Antibiotics have been adjusted. Follow up on culture results. 3. Chronic atrial fibrillation. Continue apixaban and rate control. We will continue cardiac telemetry. 4. Essential hypertension, stable. The patient did have an episode of hypotension after dialysis. 5. Obesity, BMI of 30. 6. End-stage renal disease, on hemodialysis. Nephrology on board. The patient to be dialyzed today. 7. Benign prostatic hypertrophy. We will continue tamsulosin. 8. Gastrointestinal and deep venous thrombosis prophylaxis addressed. 9. Thrombocytopenia. 10. Anemia, normocytic and normochromic, likely anemia of chronic disease, secondary to chronic kidney disease. We will continue to monitor hemoglobin and hematocrit. The patient will likely benefit from Epogen shots with dialysis. We will discuss with Nephrology. 11. Bacteremia secondary to gram positive cocci Plan: Follow up on culture results. Likely discharge in the next 24 to 48 hours depending on clinical response. We will trend procalcitonin in a.m. /MODL Voice ID: [id number] Report ID: [id number] [facility]
[2018-06-27] MEDS: CEFEPIME 0.5 GM in NA CHLORIDE 0.9% 50 ML IV SCH (21:04)
[2018-06-27] MEDS: ATORVASTATIN 80 MG TAB PO SCH (21:05)
--- NOTE | 2018-06-28 02:42 | PN ---
Date of Progress Note: 06/27/2018 Subjective: The patient is still complaining from cough and shortness of breath. The patient is sta tus post dialysis yesterday, tolerated the dialysis, managed to remove 1500. Physical Examination: Vital Signs: When I saw the patient, blood pressure of 148/72, pulse of 67. Chest: Wheezing, bilateral. Heart: S1, S2. Regular. Abdomen: Soft, nontender. Extremities: No edema. Laboratory Data: WBC 5.9, H and H 7.8/23.2, and platelets of 71. Sodium 137, potassium 3.7, bicarb 26, BUN 32, creatinine 4, and calcium 8.4. Medications: Current medications the patient is on include cefepime, vancomycin, Plavix, Epogen, yaniv rvastatin, hydralazine, carvedilol 6.25 b.i.d., and Lasix. Assessment And Plan: 1.End-stage renal disease, looked to me normal volume. I am going to go ahead and arrange for dialy sis tomorrow, and we will monitor. 2.Hypertension, controlled, optimal. Continue current medication. 3.Chronic obstructive pulmonary disease exacerbation, pneumonia. Continue current antibiotic. We w ill follow up with the primary. 4.Anemia of chronic kidney disease. Continue Epogen. We will follow up Jaison and Jaison. BRYN/MERLY Voice ID: [id number] Report ID: [id number]
[2018-06-28 06:46] LABS: Absolute Lymphocytes (CBC) 0.5 K/uL (0.7-4.9); Absolute Monocytes 0.6 K/uL (0.1-1.3); Absolute Neutrophil 3.9 K/uL (1.8-8.0); Basophils % 0.5 % (0-1.3); Eosinophils % 1.9 % (0-4.4); Hematocrit 22.4 % (39.6-49.0); MPV 11.1 fL (7.6-11.3); Monocytes % 11.7 % (3.3-12.3); RBC Red Blood Cell Count 2.35 M/uL (4.33-5.43)
[2018-06-28 07:28] LABS: Albumin 2.4 g/dL (3.4-5.0); Bilirubin Total 0.6 mg/dL (0.2-1.0); Potassium 3.7 mmol/L (3.5-5.1)
[2018-06-28] MEDS ORDERED: POTASSIUM CL SA 10 MEQ TAB PO ONE (08:00)
[2018-06-28 08:06] LABS: Anisocytosis 2+; Blood Morphology Comment NOTED (NOT SEEN); Platelet Estimate DECR; Poikilocytosis 1+; Urine White Blood Cell Casts OK
[2018-06-28] MEDS: CLOPIDOGREL 75 MG TABLET PO SCH (08:29)
[2018-06-28] MEDS: TAMSULOSIN 0.4 MG SR CAP PO SCH (08:29)
[2018-06-28] MEDS: APIXABAN 5 MG TABLET PO SCH ×2 (08:30→21:43)
[2018-06-28] MEDS: CARVEDILOL 6.25 MG TAB PO SCH ×2 (08:31→21:43)
[2018-06-28] MEDS: FUROSEMIDE 40 MG TABLET PO SCH ×2 (08:31→17:08)
[2018-06-28] MEDS: AMLODIPINE 10 MG TAB PO SCH (08:32)
[2018-06-28] MEDS: ISOSORBIDE MONO SR 30 MG TAB PO SCH (08:32)
[2018-06-28] MEDS: HYDRALAZINE HCL 25 MG TABLET PO SCH ×3 (08:33→21:43)
[2018-06-28] MEDS ORDERED: GUAIFENESIN/CODEINE 5ML UCUP PO PRN (08:35)
[2018-06-28] MEDS: ALBUMIN HUMAN 25% 50 ML IV SCH ×2 (11:20→11:40)
[2018-06-28] MEDS ORDERED: NA CHLORIDE 0.9% 250 ML ONE (12:37)
[2018-06-28 16:41] LABS: Hematocrit 26.1 % (39.6-49.0)
[2018-06-28] MEDS ORDERED: Levofloxacin 750mg IV 750 MG/150 ML BAG IV ONE (17:00)
[2018-06-28] MEDS ORDERED: Levofloxacin500mg IV 500 MG/100 ML BAG IV SCH (17:00)
--- NOTE | 2018-06-28 19:02 | PN ---
Date of Progress Note: 06/28/2018 History: The patient was seen and examined. Chart reviewed and case discussed with RN. The patient states he feels better. Still having some significant amount of cough. Going for dialysis today. Medications: List reviewed. Physical Examination: Vital Signs: Temperature 98.3, heart rate 56, blood pressure was 116/58, respirations 18, O2 98% on room air. General: Awake, alert, oriented x3. Elderly male, obese, some mild distress, ill-appearing. CV: S1, S2. Irregularly irregular rhythm. No murmurs. Respiratory: Diminished breath sounds at the bases, otherwise moving air well. No wheezing or strid or. Gastrointestinal: Abdomen is soft, nontender, nondistended. Positive bowel sounds. No guarding or rigidity. Extremities: No clubbing or cyanosis. The patient does have pedal edema. Neurologic: Nonfocal. Laboratory Data: Sodium 136, potassium 3.7, chloride 101, CO2 24, BUN 51, creatinine 6.54, glucose 9 1, calcium 8.2, albumin 2.4. WBC 5.1, H and H 7.4 and 22.4, platelets 81, neutrophils 75.9%. Blood cultures 4/4 bottles growing Enterococcus faecalis. Assessment And Plan: A 72-year-old male with: 1.Sepsis secondary to pneumonia and bacteremia, improving. WBC count normalized. 2.Pneumonia, bilateral lower lobes. Continue broad-spectrum antibiotics. Blood cultures growing En terococcus faecalis. 3.Bacteremia secondary to enterococcus faecalis. We will continue with vancomycin. We will obtain echocardiogram to rule out vegetation. Consult ID. The patient will likely need broad-spectrum IV a ntibiotics for 2-4 weeks. 4.Chronic atrial fibrillation. Continue apixaban. Rate control, stable. 5.Essential hypertension, stable. 6.Obesity, BMI 30. 7.End-stage renal disease, on hemodialysis. The patient to continue dialysis. Appreciate Nephrolog y input. 8.Anemia, likely anemia of chronic disease. Hemoglobin and hematocrit have been slowly trending yamileth n, now 2 g lower than when he was initially admitted. We will go ahead and transfuse 1 unit of PRBCs with dialysis. We will check Hemoccult stool. The patient has not had a bowel movement since yeste rday. 9.Benign prostatic hypertrophy. Continue tamsulosin. 10.Thrombocytopenia. 11.Gastrointestinal and deep venous thrombosis prophylaxis addressed. Plan: We will continue to monitor closely. We will likely need long-term IV antibiotics set up. We will discuss further with Infectious Disease. /MERLY Voice ID: [id number] Report ID: [id number]
--- NOTE | 2018-06-28 20:53 | CON ---
History Of Present Illness: This is a 72-year-old male I was consulted for bacteremia secondary to E nterococcus faecalis. The patient is coming in with the initial diagnosis of pneumonitis and on bloo d culture shows 4/4 showing Enterococcus faecalis. The patient has significant history of end-stage renal disease, hypertension, coronary artery disease, on hemodialysis since December. The patient came i n with cough and increased sputum production with fevers of 100.2. Denies any headache, nausea, vomi ting, chest pain, abdominal pain. Denies any constipation. As per staff, the patient did not have a ny bowel movement for last 2 days. Past Medical History: As per HPI. Social History: Tobacco, positive. Alcohol, negative. Family History: Noncontributory. Medications: Cefepime and vancomycin. See MARS for other medication. Allergies: NO KNOWN DRUG ALLERGIES. Review of Systems: A 10-point review was performed. Physical Examination: General: This is a 72-year-old male, sitting in easy chair, not in any acute cardiopulmonary distres s. Vital Signs: Temperature 98.3, pulse 56, respirations 18, blood pressure 116/58. HEENT: Unremarkable. Neck: Supple. Lungs: Basal crackles. Heart: S1, S2. Regular. Abdomen: Soft. Bowel sounds present. Extremities: Trace edema. Chest: Right chest wall with a Gopal catheter in place. Laboratory Data: Shows WBC 5.1, down from 13.2, hemoglobin 7.4, platelets are 81. Chemistry shows s odium 136, potassium 3.7, chloride 101, bicarb 24, BUN 51, creatinine 6.5, glucose is 91. Micro data shows Enterococcus faecalis and blood cultures sensitive to everything. We will recommend Unasyn an d Levaquin. Assessment/plan: 1.Bacteremia secondary to enterococcus faecalis. Recommend Unasyn and Levaquin for total of 3-4 wee ks. The patient can continue with dialysis. 2.Gastrointestinal bleed and pneumonitis, continue antibiotic and supportive care. We will follow t he patient as needed. NF/MODL Voice ID: [id number] Report ID: [id number]
[2018-06-28] MEDS: ATORVASTATIN 80 MG TAB PO SCH (21:43)
[2018-06-28] MEDS: SULBACTAM IV SCH (21:44)
[2018-06-28] MEDS: AMPICILLIN IV SCH (21:44)
--- NOTE | 2018-06-29 02:25 | PN ---
Date of Progress Note: 06/28/2018 Subjective: There still has some shortness of breath, but better than before. The patient is status post dialysis today. Managed to remove 2200. Physical Examination: Vital Signs: Blood pressure 118/51, pulse of 58. Chest: Clear to auscultation. Heart: S1, S2, regular. Abdomen: Soft, nontender. Extremities: No edema. Laboratory Data: WBC 5.1, H and H 7.4/22.4. Sodium is 136, potassium is 3.7, bicarb 24, BUN 51, cre atinine 6.5, calcium 8.5. Blood culture, the patient growing Enterococcus faecalis. Current Medications: Include, 1.Ampicillin. 2.Levaquin. 3.Flomax. 4.Plavix. 5.Epogen. 6.Carvedilol 6.25. 7.Hydralazine 100 t.i.d. 8.Isosorbide. 9.Lasix. Assessment And Plan: 1.End-stage renal disease. We will maintain the patient on dialysis. Next, the patient dialyzed to . I am going to go ahead and arrange for dialysis Monday. We will monitor next bacteremia on d ialysis. The patient to rule out endocarditis. We will go ahead and get echocardiogram. We will co nsult ID and we will follow up their recommendation. 2.Hypertension, controlled, optimal. Continue current medication. 3.Anemia on the present bacteremia, to rule out hemolysis. I am going to send for LDH and we will f ollow up. BRYN/MERLY Voice ID: [id number] Report ID: [id number]
[2018-06-29 04:25] LABS: HBsAG Nonreactive (Nonreactive)
[2018-06-29 04:45] LABS: Absolute Lymphocytes (CBC) 0.7 K/uL (0.7-4.9); Absolute Monocytes 0.8 K/uL (0.1-1.3); Absolute Neutrophil 5.2 K/uL (1.8-8.0); Basophils % 0.3 % (0-1.3); Eosinophils % 1.4 % (0-4.4); Hematocrit 25.8 % (39.6-49.0); Lymphocytes % 9.9 % (15.3-44.8); MPV 11.8 fL (7.6-11.3); Monocytes % 11.8 % (3.3-12.3); RBC Red Blood Cell Count 2.75 M/uL (4.33-5.43)
[2018-06-29 05:03] LABS: Albumin 2.8 g/dL (3.4-5.0); Bilirubin Total 0.9 mg/dL (0.2-1.0); Potassium 3.9 mmol/L (3.5-5.1); Protein, Total 6.6 g/dL (6.4-8.2)
[2018-06-29] MEDS ORDERED: POTASSIUM CL SA 10 MEQ TAB PO ONE (05:16)
[2018-06-29] MEDS: AMLODIPINE 10 MG TAB PO SCH (09:15)
[2018-06-29] MEDS: APIXABAN 5 MG TABLET PO SCH (09:16)
[2018-06-29] MEDS: HYDRALAZINE HCL 25 MG TABLET PO SCH ×3 (09:16→20:26)
[2018-06-29] MEDS: TAMSULOSIN 0.4 MG SR CAP PO SCH (09:17)
[2018-06-29] MEDS: ISOSORBIDE MONO SR 30 MG TAB PO SCH (09:17)
[2018-06-29] MEDS: SULBACTAM IV SCH (09:18)
[2018-06-29] MEDS: AMPICILLIN IV SCH (09:18)
[2018-06-29] MEDS: CLOPIDOGREL 75 MG TABLET PO SCH (09:22)
[2018-06-29] MEDS ORDERED: PANTOPRAZOLE 40MG TABLET PO SCH (11:45)
[2018-06-29] MEDS: CARVEDILOL 6.25 MG TAB PO SCH ×2 (11:52→20:26)
[2018-06-29] MEDS: FUROSEMIDE 40 MG TABLET PO SCH ×2 (11:52→17:00)
[2018-06-29] MEDS ORDERED: SODIUM CHLORIDE 0.9% 10ML INJ IV PRN (12:38)
[2018-06-29] MEDS ORDERED: ONDANSETRON 4 MG/2 ML VIAL IV PRN (12:38)
[2018-06-29] MEDS ORDERED: PANTOPRAZOLE 40 MG INJ IVP SCH (12:39)
[2018-06-29 13:05] LABS: Hematocrit 25.9 % (39.6-49.0)
[2018-06-29] MEDS ORDERED: NA CHLORIDE 0.9% 1,000 ML IV ONE ×2 (14:26→15:41)
[2018-06-29] MEDS ORDERED: NA CHLORIDE 0.9% 1,000 ML ONE (14:34)
--- NOTE | 2018-06-29 14:49 | ECHO ---
HEIGHT: 5 ft 11 in WEIGHT: 216 lb 5 oz DATE OF STUDY: 06/29/[address]: Luann Cowart MD 2-DIMENSIONAL: YES M.MODE: YES DOPPLER: YES COLOR FLOW: YES TDS: PORTABLE: DEFINITY: BUBBLE STUDY: DIAGNOSIS: BACTEREMIA CARDIAC HISTORY: CATHERIZATION: YES SURGERY: PROSTHETIC VALVE: NO PACEMAKER: NO MEASUREMENTS (cm) DIASTOLIC (NORMALS) SYSTOLIC (NORMALS) IVSd 1.3 (0.6-1.2) LA Diam 4.9 (1.9-4.0) LVEF 30-35% LVIDd 6.0 (3.5-5.7) LVIDs 4.5 (2.0-3.5) %FS 25% LVPWd 1.4 (0.6-1.2) Ao Diam 3.7 (2.0-3.7) 2 DIMENSIONAL ASSESSMENT: RIGHT ATRIUM: DILATED LEFT ATRIUM: DILATED RIGHT VENTRICLE: DILATED LEFT VENTRICLE: DILATED WITH LEFT VENTRICULAR HYPERTROPHY TRICUSPID VALVE: NORMAL MITRAL VALVE: NORMAL PULMONIC VALVE: NORMAL AORTIC VALVE: NORMAL PERICARDIAL EFFUSION: NONE AORTIC ROOT: NORMAL LEFT VENTRICULAR WALL MOTION: GLOBAL HYPOKINESIS DOPPLER/COLOR FLOW: MILD MITRAL REGURGITATION COMMENTS: DEPRESSED LEFT VENTRICULAR EJECTION FRACTION. FOUR CHAMBER DILATION. LEFT VENTRICULAR HYPERTROPHY. MILD MITRAL REGURGITATION. TECHNOLOGIST: DAIANA ZIMMER
[2018-06-29] MEDS: PANTOPRAZOLE INJ 80 MG in NA CHLORIDE 0.9% 250 ML IV SCH (17:09)
[2018-06-29] MEDS: OCTREOTIDE 500 MCG in NA CHLORIDE 0.9% 500 ML IV SCH (17:09)
[2018-06-29 17:26] LABS: Hematocrit 17.3 % (39.6-49.0)
--- NOTE | 2018-06-29 17:37 | PN ---
Subjective: The patient sitting in the easy chair vomited ground red color vomitus. While the patie nt was being evaluated, the patient claims that not feeling well and just started vomiting. No other complaints at this time. Objective: Vital Signs: Temperature 97, pulse 67, respiration 18, blood pressure 146/61. Lungs: Basal crackles. Heart: S1, S2, regular. Abdomen: Soft. Bowel sounds present. Extremities: 1+ edema. Laboratory Data: WBC 6.8, hemoglobin 8.6, platelets are 91. Chemistry shows sodium 134, potassium 3 .9, chloride 101, bicarb 27. BUN is 32, creatinine 4.7, glucose 102. Assessment And Plan: Hematemesis, most likely gastritis or gastric ulcer. Recommend to repeat CBC a nd have an EGD done. Start patient on hydrogen pump blockers. Continue IV antibiotic and consider p atient for long-term acute care at [facility]. We will follow the patient at [facility]. We w ill follow the patient as needed. NF/MODL Voice ID: [id number] Report ID: [id number]
[2018-06-29] MEDS ORDERED: NA CHLORIDE 0.9% 500 ML ONE (17:56)
[2018-06-29] MEDS ORDERED: NOREPINEPHRINE 4 MG in D5W 250 ML IV PRN (19:35)
[2018-06-29] MEDS ORDERED: NOREPINEPHRINE 4 MG/4 ML VIAL ONE (20:06)
[2018-06-29] MEDS ORDERED: D5W 250 ML IV ONE (20:06)
[2018-06-29] MEDS: ATORVASTATIN 80 MG TAB PO SCH (20:27)
--- NOTE | 2018-06-29 20:55 | PN ---
Date of Progress Note: 06/29/2018 Subjective: The patient is seen and examined. Chart reviewed and case discussed with RN and clinical data specialist. The patient reports some abdominal discomfort, having some gastroesophageal reflux symptoms. The patient subsequently in the afternoon had large coffee-grounds emesis. Medications: List reviewed. Physical Examination: Vital Signs: Temperature 97.7, heart rate 67, blood pressure 146/61, respirations 18, O2 97% on room air. General: Awake, alert, oriented x3, obese male, elderly, ill-appearing. CV: S1, S2, irregularly irregular. Peripheral pulses present. Respiratory: Moving air well bilaterally. No wheezing. Gastrointestinal: Abdomen is soft, mildly distended. No tenderness to palpation. Bowel sounds positive. Extremities: No clubbing, cyanosis, or edema. No calf tenderness. Neurologic: Nonfocal. Laboratory Data: Sodium 134, potassium 3.9, chloride 101, CO2 27, glucose 102, calcium 8.4, albumin 2.8. WBC 6.8, H and H 8.6 and 25.8, platelets 91, neutrophils 76.6%. Repeat H and H are also 8.6 and 25.9. Blood cultures growing Enterococcus faecalis. Gastric occult blood is positive. Assessment: A 72-year-old male with: 1. Sepsis secondary to pneumonia and bacteremia, improving. WBC count has normalized. 2. Pneumonia, bilateral lower lobe. We will continue IV antibiotics with Unasyn and Levaquin. Appreciate ID input. 3. Bacteremia secondary to enterococcus faecalis. We will continue with Unasyn and Levaquin. Echocardiogram pending to rule out vegetation. We will need IV antibiotics for 3-4 weeks. 4. Acute gastrointestinal bleed. Hematemesis is likely secondary to multiple blood thinners, which have been placed on hold. Repeat H and H are stable. The patient has already been transfused 1 unit. The patient now hypotensive. We will transfuse 1 L normal saline bolus. I will initiate transfer as there are no GI services available. 5. Acute blood loss anemia. The patient is status post 1 unit PRBCs secondary to gastrointestinal bleed. Monitor H and H and transfuse as needed. 6. End-stage renal disease, on hemodialysis. Continue dialysis as appropriate. Nephrology on board. 7. Obesity, BMI 30. 8. Essential hypertension, currently hypotensive. We will hold blood pressure medications. 9. Benign prostatic hyperplasia, on tamsulosin. 10. Thrombocytopenia. Platelet count improving, currently at 91. Plan: Transfer to [facility] for GI Services. /MERLY Voice ID: [id number] Report ID: [id number]
--- NOTE | 2018-06-29 23:52 | P.PN ---
Subjective Date of Service: 06/30/18 Chief Complaint: sepsis Subjective: Worsening hematamesis start IV PP monitor CBC e.facealis abcteremia HD tomorrow Physical Examination - Vital Signs Temperature: 97.9 F Blood Pressure: 90/41 Pulse: 71 Respirations: 33 Pulse Ox (%): 98 - Physical Exam General: Oriented x3, Moderate distress HEENT: Atraumatic Neck: Supple, Without JVD or thyroid abnormality Respiratory: Clear to auscultation bilaterally, Normal air movement Cardiovascular: No edema, Regular rate/rhythm, Normal S1 S2 Gastrointestinal: Normal bowel sounds, Soft and benign Assessment And Plan - Current Problems (Diagnosis) (1) ESRD on hemodialysis Onset Date: 06/26/18 Current Visit: Yes Status: Acute (2) Sepsis Onset Date: 06/26/18 Current Visit: Yes Status: Acute Qualifiers: Sepsis type: sepsis due to unspecified organism Qualified Code(s): A41.9 - Sepsis, unspecified organism - Plan End-stage renal disease. Hd TTsat renal dose meds Hypertension, controlled, Anemia Hematamesis IV PPEpogen transfuse to keep Hb >7.0 E.facealis bacteremia Abx as per ID
[2018-06-30] MEDS ORDERED: NA CHLORIDE 0.9% 250 ML ONE ×3 (00:39→05:24)
[2018-06-30] MEDS: SULBACTAM IV SCH (01:48)
[2018-06-30] MEDS: AMPICILLIN IV SCH (01:48)
[2018-06-30] MEDS: OCTREOTIDE 500 MCG in NA CHLORIDE 0.9% 500 ML IV SCH (02:09)
[2018-06-30] MEDS: PANTOPRAZOLE INJ 80 MG in NA CHLORIDE 0.9% 250 ML IV SCH (02:09)
[2018-06-30] MEDS ORDERED: NOREPINEPHRINE 4 MG/4 ML VIAL ONE (04:45)
[2018-06-30] MEDS ORDERED: D5W 250 ML IV ONE (04:45)
[2018-06-30] MEDS ORDERED: NA CHLORIDE 0.9% 1,000 ML ONE (05:22)
[2018-06-30 05:41] LABS: Absolute Lymphocytes (CBC) 1.8 K/uL (0.7-4.9); Absolute Neutrophil 11.9 K/uL (1.8-8.0); Basophils % 0.3 % (0-1.3); Eosinophils % 0.4 % (0-4.4); Lymphocytes % 11.3 % (15.3-44.8); MPV 9.9 fL (7.6-11.3); Monocytes % 12.7 % (3.3-12.3); RBC Red Blood Cell Count 1.43 M/uL (4.33-5.43)
--- NOTE | 2018-06-30 05:41 | P.OP ---
Date of Service: 06/29/18 Findings and Operative Technique INDICATION: Central line access. PROCEDURE PERSONAL CARE AIDE: Dr Murray. CONSENT: Consent was obtained prior to the procedure. Indications, risks, and benefits were explained at length. PROCEDURE SUMMARY: A time-out was completed verifying correct patient, procedure, site, positioning , and special equipment if applicable. The patient was placed in a dependent position appropriate for central line placement based on the vein to be cannulated. The patients right groin was prepped and draped in sterile fashion. 1% Lidocaine was used to anesthetize the surrounding skin area. A triple lumen 9-Norwegian Cordis catheter was introduced into the the femoral vein using the Seldinger technique. The catheter was threaded smoothly over the guide wire and appropriate blood return was obtained. Each lumen of the catheter was evacuated of air and flushed with sterile saline. The catheter was then sutured in place to the skin and a sterile dressing applied. Perfusion to the extremity distal to the point of catheter insertion was checked and found to be adequate.\ Estimated Blood Loss: 5 cc The patient tolerated the procedure well and there were no complications.
--- NOTE | 2018-06-30 05:47 | P.PN ---
Date of Service: 06/30/18 Mr Rizzo is a 72 years old male with history of ESRD on HD, HTN, CAD, on treatment with ASA, plavix also Eliquis due to chronic atrial fibrillation. He was admitted to the hospital on 06/25/18 due to sepsis secondary to bilateral lower lobe pneumonia. He was started on IV Levaquin, Infectious disease specialist was on board as well. Yesterday, the patient start with abdominal pain, subsequently he had an episode of coffee-ground emesis. Hemglobin decreased from 8.7 to 5.6 mg/dl. He was transfer to ICU since he become hemodynamically unstable. At that time he received 2 UNITS of FFP's, 1 UNIT of platelets and 2 UNITS of PRBC's, IV protonix continuous infusion and started on vasopressors. Around 5:15 AM today, the patient become unresponsive and hypotensive 75/40. When I arrive the room, found the patient diaphoretic, pale, he just had a [place] bowel movement. IV NS bolus was ordered and Levophed was maximized. Gradually, his BP increased to 105/80 and his mentation improved. Stat Hgb report 4.4 mg/dl. More PRBC's were ordered for urgent transfusion. The patient needs EGD/colonoscopy done, unfortunately we do not have available GI specialist in house, therefore he needs to be transfer to a tertiary facility for higher level of care. He has been accepted at [facility].
[2018-06-30 05:49] LABS: Hematocrit 13.8 % (39.6-49.0)
[2018-06-30 05:50] LABS: Protime INR 2.38
[2018-06-30] MEDS ORDERED: NA CHLORIDE 0.9% 250 ML IV SCH (06:00)
--- NOTE | 2018-06-30 06:13 | P.DS ---
Admission Date: 06/25/18 Discharge Date: 06/30/18 Disposition: TRANSFER TO [facility] Discharge Condition: SERIOUS Reason for Admission: sepsis - Problems (1) Sepsis Onset Date: 06/26/18 Current Visit: Yes Status: Acute Qualifiers: Sepsis type: sepsis due to unspecified organism Qualified Code(s): A41.9 - Sepsis, unspecified organism (2) Pneumonia Onset Date: 06/26/18 Current Visit: Yes Status: Acute Qualifiers: Pneumonia type: due to unspecified organism Laterality: bilateral Lung location: lower lobe of lung Qualified Code(s): J18.1 - Lobar pneumonia, unspecified organism (3) Chronic a-fib Onset Date: 06/26/18 Current Visit: Yes Status: Acute (4) HTN (hypertension) Onset Date: 06/26/18 Current Visit: Yes Status: Acute Qualifiers: Hypertension type: essential hypertension Qualified Code(s): I10 - Essential (primary) hypertension (5) ESRD on hemodialysis Onset Date: 06/26/18 Current Visit: Yes Status: Acute (6) GIB (gastrointestinal bleeding) Current Visit: Yes Status: Acute Qualifiers: GI bleed type/associated pathology: gastrointestinal hemorrhage with hematemesis Qualified Code(s): K92.0 - Hematemesis Brief History of Present Illness: Mr Rizzo is a 72 years old male with history of HTN, CAD, ESRD on HD who start about 3 days ago with progressive SOB associated with productive cough with thick creamy secretions, fever and generalized weakness. He denied chest pain. He has also had nausea and vomiting. In ER he was febrile 100.2 F, lab work remarkable for leukocytosis with bandemia, elevated lactate and procalcitonin. CXR shows bilateral opacities consistent with pneumonia. O2 sat 91% on RA. Hospital Course: Mr Rizzo is a 72 years old male with history of ESRD on HD, HTN, CAD, on treatment with ASA, plavix also Eliquis due to chronic atrial fibrillation. He was admitted to the hospital on 06/25/18 due to sepsis secondary to bilateral lower lobe pneumonia. He was started on IV Levaquin, Infectious disease specialist was on board as well. Yesterday, the patient start with abdominal pain, subsequently he had an episode of coffee-ground emesis. Hemglobin decreased from 8.7 to 5.6 mg/dl. He was transfer to ICU since he become hemodynamically unstable. At that time he received 2 UNITS of FFP's, 1 UNIT of platelets and 2 UNITS of PRBC's, IV protonix continuous infusion and started on vasopressors. Around 5:15 AM today, the patient become unresponsive and hypotensive 75/40. When I arrive the room, found the patient diaphoretic, pale, he just had a [place] bowel movement. IV NS bolus was ordered and Levophed was maximized. Gradually, his BP increased to 105/80 and his mentation improved. Stat Hgb report 4.4 mg/dl. More PRBC's were ordered for urgent transfusion. The patient needs EGD/colonoscopy done, unfortunately we do not have available GI specialist in house, therefore he needs to be transfer to a tertiary facility for higher level of care. He has been accepted at [facility]. Vital Signs/Physical Exam: Temp Pulse Resp BP Pulse Ox 97.9 F 73 21 H 86/64 L 100 06/30/18 00:43 06/30/18 01:15 06/30/18 01:15 06/30/18 01:15 06/30/18 01:15 General: Alert HEENT: Atraumatic, PERRLA, EOMI Neck: Supple Respiratory: Diminished, Crackles/rales (bibasilar crackles) Cardiovascular: Regular rate/rhythm, Normal S1 S2 Capillary refill: >2 Seconds Gastrointestinal: No tenderness, Other (melena) Musculoskeletal: No tenderness Integumentary: No rashes Neurological: Normal speech, Normal tone, Normal affect Laboratory Data at Discharge: WBC 15.8 K/uL (4.3-10.9) H D 06/30/18 05:00 Hgb 4.4 g/dL (13.6-17.9) L* 06/30/18 05:00 Hct 13.8 % (39.6-49.0) L* D 06/30/18 05:00 Plt Count 187 K/uL (152-406) D 06/30/18 05:00 PT 28.3 SECONDS (9.5-12.5) H 06/30/18 05:00 INR 2.38 06/30/18 05:00 Sodium 134 mmol/L (136-145) L 06/29/18 04:06 Potassium 3.9 mmol/L (3.5-5.1) 06/29/18 04:06 BUN 32 mg/dL (7-18) H 06/29/18 04:06 Creatinine 4.72 mg/dL (0.55-1.3) H D 06/29/18 04:06 Glucose 102 mg/dL (74-106) 06/29/18 04:06 Phosphorus 5.8 mg/dL (2.5-4.9) H 06/26/18 05:46 Magnesium 1.9 mg/dL (1.8-2.4) 06/26/18 05:46 Total Bilirubin 0.9 mg/dL (0.2-1.0) 06/29/18 04:06 AST 16 U/L (15-37) 06/29/18 04:06 ALT 16 U/L (12-78) 06/29/18 04:06 Alkaline Phosphatase 63 U/L (45-117) 06/29/18 04:06 Home Medications: Amlodipine [Norvasc] 10 mg PO DAILY WITH BREAKFAST 06/02/16 Atorvastatin Calcium [Lipitor] 80 mg PO BEDTIME 06/02/16 Carvedilol [Coreg] 6.25 mg PO BID 06/02/16 Cholecalciferol (Vitamin D3) [Vitamin D3] 1,000 unit PO DAILY 06/02/16 Furosemide [Lasix] 40 mg PO BID 06/02/16 Apixaban [Eliquis] 5 mg PO BID 06/25/18 Clopidogrel Bisulfate [Plavix*] 75 mg PO DAILY 06/25/18 Hydralazine HCl [Apresoline] 100 mg PO TID 06/25/18 Isosorbide Mononitrate [Isosorbide Mononitrate ER] 30 mg PO DAILY 06/25/18 Tamsulosin [Flomax*] 1 cap PO DAILY 06/26/18 Diet: NPO
[2018-06-30] MEDS ORDERED: NA CHLORIDE 0.9% 500 ML ONE (07:24)
[2018-06-30 07:38] LABS: Potassium 6.5 mmol/L (3.5-5.1)
--- NOTE | 2018-06-30 08:19 | RAD REPORT ---
EXAM DESCRIPTION: CT - Abdomen Pelvis Wo Contrast - 06/29/2018 10:30 pm CLINICAL HISTORY: Pneumonia, sepsis COMPARISON: Chest film June 25, CT study June 2016 TECHNIQUE: Axial [address] imaging of the abdomen and pelvis was performed without IV contrast. No IV contrast was given because of allergy, abnormal renal function, patient refusal or physician re quest. Oral contrast was given. All CT scans are performed using dose optimization technique as appropriate and may include automated exposure control or mA/KV adjustment according to patient size. FINDINGS: Posterior gutter interstitial markings are prominent. There are bilateral small pleural ef fusions present. Posterolateral left pleural effusion is at least partially loculated. Cardiomegaly i s present without pericardial thickening or effusion. A 2.5 centimeter soft tissue mass is present me dial margin right infrahilar region probably part of mediastinal lymph node. Chest is only partially imaged on this study. The liver and spleen show no suspicious findings. No focal mass of the pancreas seen. There is some s ubtle edema and stranding in the peripancreatic fat. A minimal pancreatitis could be present and need s correlation with clinical presentation. This would probably not be an explanation for the overall c linical presentation. Gallbladder and biliary tree are also without suspicious finding. Gallstones ca n be occult on CT imaging. Multiple small cysts are present in both kidneys. Both kidneys show volume loss and cortical thinning . No hydronephrosis. Minimal perinephric stranding is present. Minimal nodularity of both adrenal gla nds seen similar to 2017. Isodense renal masses and pyelonephritis cannot be excluded in the absence of IV contrast. The urinary bladder is without significant finding. Prostate gland is enlarged. No in vasion of adjacent structures. No significant stranding in the adjacent fat. Penile prosthesis reserv oir seen in the right lower quadrant. No gastric dilatation or wall thickening. No dilated large or small bowel. Acute GI process is not se en. No free air, free fluid or pneumatosis. No mass or bulky lymphadenopathy seen. Fat filled right i nguinal hernia is present. Left inguinal hernia surgical changes are noted. Dense vascular calcifications are present. No aortic aneurysm. Bilateral common iliac artery stents a re in place. Disc and bony degenerative changes are present. No pathologic bone process. IMPRESSION: Small bilateral pleural effusions are present with the posterolateral left base pleural effusion at least partially loculated. Right subcarinal 2.5 centimeter mass or lymphadenopathy only partially imaged on this CT abdomen stud y. Trace amount of stranding in the peripancreatic fat without mass. Minimal pancreatitis is possible bu t probably not the primary source of the patient's acute clinical condition. Enlarged prostate gland similar to comparison. Prostatitis is not clearly evident. No acute GI or process seen. Chronic renal disease is present progressive from 2017. Additional nonacute findings detailed in the body of the report. Full assessment is limited is the absence of IV contrast.
--- NOTE | 2018-06-30 14:14 | EKG ---
Test Date: 2018-06-30 Test Time: 05:13:59 Stitch Bonding Machine Tender Helper: YOSHI MEASUREMENT RESULTS: Intervals: Rate: 77 [place]: QRSD: 118 QT: 408 QTc: 461 [place]: P: TX: QRS: 2 T: 156 INTERPRETIVE STATEMENTS: Atrial fibrillation Inferior infarct, age undetermined Cannot rule out Anterior infarct, age undetermined ST & T wave abnormality, consider lateral ischemia or digitalis effect Abnormal ECG Compared to ECG 06/25/2018 15:35:14 Possible ischemia now present Ventricular premature complex(es) no longer present Myocardial infarct finding still present ST (T wave) deviation still present Electronically Signed On 06-30-18 14:13:11 VERIFYING MACHINE OPERATOR by Aneesh Meyer
[2018-06-30] MEDS ORDERED: Levofloxacin500mg IV 500 MG/100 ML BAG IV SCH (17:00)
== END 2018-06-30 07:50 | disposition short-term general hospital (02) | DRG 871 ==
LOC: ER 14:26 → ERHOLD 17:15 → 2ND 20:07 → 3RD-ICU 06-29 16:00
PROVIDERS: ADMIT Family Medicine; ATTEND Family Medicine
PROC: 5A1D70Z Performance of Urinary Filtration, Intermittent, Less than 6 Hours Per Day (ICD-10-PCS; 2018-06-26)
PROC: 5A1D70Z Performance of Urinary Filtration, Intermittent, Less than 6 Hours Per Day (ICD-10-PCS; 2018-06-28)
PROC: 02HV33Z Insertion of Infusion Device into Superior Vena Cava, Percutaneous Approach (ICD-10-PCS; principal; 2018-06-29)
PROC: 30233N1 Transfusion of Nonautologous Red Blood Cells into Peripheral Vein, Percutaneous Approach (ICD-10-PCS; 2018-06-29)
PROC: 30233K1 Transfusion of Nonautologous Frozen Plasma into Peripheral Vein, Percutaneous Approach (ICD-10-PCS; 2018-06-30)
PROC: 30233R1 Transfusion of Nonautologous Platelets into Peripheral Vein, Percutaneous Approach (ICD-10-PCS; 2018-06-30)
DX: A41.81 Sepsis due to Enterococcus (principal); N18.6 End stage renal disease; J18.1 Lobar pneumonia, unspecified organism; K92.0 Hematemesis; N25.81 Secondary hyperparathyroidism of renal origin; J44.0 Chronic obstructive pulmonary disease with (acute) lower respiratory infection; J44.1 Chronic obstructive pulmonary disease with (acute) exacerbation; D62 Acute posthemorrhagic anemia; I13.2 Hypertensive heart and chronic kidney disease with heart failure and with stage 5 chronic kidney disease, or end stage renal disease; I48.2 Chronic atrial fibrillation; I25.10 Atherosclerotic heart disease of native coronary artery without angina pectoris; Z99.2 Dependence on renal dialysis; Z79.01 Long term (current) use of anticoagulants; Z79.02 Long term (current) use of antithrombotics/antiplatelets; I95.9 Hypotension, unspecified; I25.2 Old myocardial infarction; Z95.5 Presence of coronary angioplasty implant and graft; F17.210 Nicotine dependence, cigarettes, uncomplicated; E66.9 Obesity, unspecified; Z68.30 Body mass index [BMI] 30.0-30.9, adult; N40.0 Benign prostatic hyperplasia without lower urinary tract symptoms; D69.6 Thrombocytopenia, unspecified; D63.1 Anemia in chronic kidney disease; I50.9 Heart failure, unspecified
CPT/HCPCS: 36415; 36430; 71045; 74176; 80048; 80053; 82271; 82274; 82962; 83605; 83615; 83735; 83986; 84100; 84145; 85014; 85018; 85025; 85610; 86704; 86706; 86803; 86850; 86900; 86901; 87040; 87077; 87186; 87205; 87340; 87804; 90935; 93005; 93306; 96365; 97162; 99285; C9113; J0295; J0692; J2354; J2405; J7030; J7060; P9016; P9035; P9047; P9059; Q4081